=== PATIENT | female | born 1965 | race Caucasian/White ===

== ENCOUNTER 2019-05-12 12:17 | Emergency (ER) | payer SELFPAY ==
[2019-05-12 12:19] VITALS: BP 123/79; PULSE 78; RESP 17; TEMP 36.4; O2SAT 98; BMI 32.6
--- NOTE | 2019-05-12 12:31 | XRR_ITS ---
PROCEDURE INFORMATION: Exam: XR Lumbosacral Spine, 2 or 3 Views Exam date and time: 05/12/2019 1:25 PM Age: 54 years old Clinical indication: Injury or trauma; Fall; Initial encounter; Blunt trauma (contusions or hematomas) TECHNIQUE: Imaging protocol: XR of the lumbosacral spine, 2 or 3 views. COMPARISON: CR Lumbar Spine 2-3 views* [id number] 10/29/2015 8:45 PM FINDINGS: Vertebrae: Normal. No acute fracture. Normal alignment. Soft tissues: Normal. XR/XR lumbar spine 2-3V* [id number] IMPRESSION: Unremarkable radiograph.
--- NOTE | 2019-05-12 12:31 | XRR_ITS ---
PROCEDURE INFORMATION: Exam: XR Left Hand Exam date and time: 05/12/2019 1:29 PM Age: 54 years old Clinical indication: Injury or trauma; Fall; Initial encounter; Blunt trauma (contusions or hematomas; Hand; Left TECHNIQUE: Imaging protocol: XR Left hand. Views: 3 or more views. COMPARISON: No relevant prior studies available. FINDINGS: Bones/joints: Negative for acute bony abnormality Soft tissues: Normal. XR/XR hand LT min 3V* [id number] IMPRESSION: No acute findings.
--- NOTE | 2019-05-12 12:31 | XRR_ITS ---
PROCEDURE INFORMATION: Exam: XR Pelvis Exam date and time: 05/12/2019 1:26 PM Age: 54 years old Clinical indication: Injury or trauma; Fall; Initial encounter; Blunt trauma (contusions or hematomas); Right; Hip; Prior surgery; Surgery date: 6+ months; Surgery type: Tubal ligation TECHNIQUE: Imaging protocol: XR pelvis. Views: 1 or 2 view. COMPARISON: CR Hip 2-3v RIGHT wwo Pelv* [id number] 10/29/2015 8:45 PM FINDINGS: Bones/joints: Unremarkable. No acute fracture. Soft tissues: Unremarkable. XR/XR pelvis 1-2V* [id number] IMPRESSION: No acute findings.
--- NOTE | 2019-05-12 12:31 | W.ED.FALL ---
HPI - Fall General: Chief Complaint: Fall Stated Complaint: fall, back pain, thumb pain Time Seen by Provider: 05/12/19 12:28 Source: patient Mode of arrival: ambulatory Limitations: no limitations History of Present Illness: HPI Narrative: 54-year-old female comes in today for complaints of low back pain and left thumb pain from a injury that occurred during a fall on Monday. Patient states she slipped and fell down 4 steps at home. Patient says since then she has been unable to use the thumb as she had such as buttoning her pants. Patient also has some low back pain. Patient appears well. Patient appears in mild to no pain at rest. Review of Systems General: Reports: 10 or more systems reviewed and unremarkable except in HPI and below Musc: Reports: back pain, joint pain and other (left dip joint pain thumb, lumbar pain) PFSH ED PFSH: Statuses (acute, chronic, etc) shown below reflect problem list status as previously entered and may not be historically accurate Social History Smoking and tobacco status: former smoker Physical Exam Const: COMMON NORMALS: no apparent distress and oriented x3 GENERAL APPEARANCE: cooperative HENMT: COMMON NORMALS: normocephalic, external ears normal, EAC's normal, TM's normal bilaterally and external nose normal HEAD & SCALP: normal to inspection and normocephalic FACE & SINUS: normal facial exam NOSE: external nose normal GENERAL EAR: hearing not grossly impaired EXTERNAL EAR: Yes external ears normal EXTERNAL AUDITORY CANAL: EAC's normal TYMPANIC MEMBRANE: TM's normal bilaterally MOUTH: oral and palatal mucosa normal THROAT: posterior oropharynx normal Eye: COMMON NORMALS: PERRL and EOMs intact bilaterally PUPIL: Yes PERRL Neck/C-Spine: COMMON NORMALS: full ROM and no lymphadenopathy Lymph: LYMPHATIC: no lymphedema noted Chest: COMMONS NORMALS: inspection of chest normal and palpation of chest normal Resp: COMMON NORMALS: normal respiratory effort and clear to auscultation bilaterally AUSCULTATION: clear to auscultation bilaterally Cardio: COMMON NORMALS: regular rate and regular rhythm RATE: regular rate RHYTHM: regular rhythm GI: COMMON NORMALS: normal to inspection, nondistended, normoactive bowel sounds and non-tender Back/Pelvis: COMMON NORMALS: straight leg raise negative bilaterally; negative for thoracic and lumbar spine normal to inspection (vertebral tenderness low lumbar spine, ) Extremity: COMMON NORMALS: full ROM (tenderness to left thumb with ROM, no crepitus or deformity) GENERAL: No edema Neuro: COMMON NORMALS: oriented x3, moves all extremities and no focal motor deficits Psych: COMMON NORMALS: mental status grossly normal and cooperative Skin: COMMON NORMALS: no rashes or lesions noted GENERAL SKIN EXAM: no rashes or lesions noted Course Vital Signs: Vital signs: Vital Signs Temperature 97.5 F L 05/12/19 12:19 Pulse Rate 78 05/12/19 12:19 Respiratory Rate 17 05/12/19 12:19 Blood Pressure 123/79 05/12/19 12:19 Pulse Oximetry 98 05/12/19 12:19 MDM - Fall MDM Narrative: Medical decision making narrative: Patient comes in for injury to the left thumb and low back that occurred Monday. Patient reported slipping on the steps. Exam notes tenderness to the distal joint of the left thumb. Respirations are even lungs are clear to auscultation. Skin is warm and dry and color is pink. Differential diagnosis includes fracture, sprain, intervertebral disc disease, facet arthropathy, vertebral compression fracture. X-ray of the back and pelvis noted no fractures. X-ray of the distal phalanx appears to be an avulsion fracture at the joint of the thumb. Remainder of the hand x-ray looked normal. Reviewed exam with patient recommended treatment splint the finger for 2 weeks then increase activity as tolerated. Recommend follow-up with primary care in 1 week for repeat exam or earlier as needed. Imaging Data^: Xray Ortho: My impression: Lumbar spine and pelvis, no osseous finding, Left hand probably a small avulsion of distal phalanx of thumb Discharge Plan Discharge Patient Disposition: Home, Self-Care Clinical Impression: Fall (on) (from) other stairs and steps, initial encounter Fracture of phalanx of finger of left hand Qualifiers: Encounter type: initial encounter Finger: thumb Fracture type: closed Phalanx: distal Fracture alignment: nondisplaced Qualified Code(s): S62.525A - Nondisplaced fracture of distal phalanx of left thumb, initial encounter for closed fracture Condition: Stable Prescriptions: New diclofenac sodium 75 mg tablet,delayed release (DR/EC) 75 mg PO BID Qty: 14 RF: 0 tizanidine 4 mg tablet 4 mg PO Q8H PRN (Reason: muscle spasm/pain) Qty: 14 RF: 0 Discharge Orders: Discharge Order (Routine); Ordered 05/12/19 Ordered By: Chandler Carrasco Discharge Diet: Usual diet Discharge Activity: Increase activity as tolerated Activity Restrictions/Additional Instructions: Gentle stretching and range of motion exercise Acetaminophen as needed for further pain control Wear splint for two weeks to the thumb, then activity as tolerated Follow-up with primary care in one week Return to ER as needed Stand Alone Forms: Work/Release Restrictions Coding Level of Care Code ED Production Support Specialist for [facility] Fwd Exam Problem Focused
--- NOTE | 2019-05-12 13:09 | PC.NURSE ---
Patient to CT
[2019-05-12 13:48] VITALS: BP 115/78; PULSE 75; RESP 14; O2SAT 97
== END 2019-05-12 13:48 | disposition home or self-care (01) ==
PROVIDERS: Emergency Provider Nurse Practitioner Family
DX: S62.525A Nondisplaced fracture of distal phalanx of left thumb, initial encounter for closed fracture (principal); W10.8XXA Fall (on) (from) other stairs and steps, initial encounter; Z87.891 Personal history of nicotine dependence
CPT/HCPCS: 72100; 72170; 73130; 99281

== ENCOUNTER 2019-06-04 02:00 | Emergency (ER) | payer SELFPAY ==
[2019-06-04 02:08] VITALS: BP 134/108; PULSE 70; RESP 24; TEMP 36.6; O2SAT 97; BMI 32.6
--- NOTE | 2019-06-04 02:09 | ED_ITS ---
Entered by Jen Weaver, acting as scribe for Jhonatan Kinney MD HPI - Abdominal Pain General: Chief Complaint: Abdominal Pain Stated Complaint: Upper Abd Pain/Back Pain Time Seen by Provider: 06/04/19 02:08 Source: patient Mode of arrival: ambulatory Limitations: no limitations History of Present Illness: HPI narrative: 54 yo f came to the er pov for abd pain. Onset was tonight. Pt states that she is having some abd pain that is epigastric and radiates to her back. Patient states the pain is sharp in nature. She denies any worsening or improving factors. She has had one episode of vomiting. MD elicited complaint: abdominal pain Pertinent past history: none Onset (ago): hour(s) (1 hour ago) Pain Consistency: constant Location: Epigastric Severity: mild Quality: sharp Radiation: epigastric and back Exacerbating factors: nothing Relieving factors: nothing Associated Symptoms: Reports nausea and vomiting; Denies diarrhea, dysuria and fever(s) Review of Systems General: Reports: other (negative unless marked) Const: Denies: fever Eyes: Denies: blurry vision or eye discomfort ENMT: Denies: throat pain or dental pain Card: Denies: chest pain Resp: Denies: shortness of breath GI: Reports: abdominal pain, nausea and vomiting; Denies: diarrhea : Denies: painful urination Musc: Denies: neck pain or back pain Skin/Breast: Denies: rash Neuro: Denies: headache Psych: Denies: depression Quan/Lymph: Denies: easy bruising All/Imm: Denies: hives PFSH ED PFSH: Statuses (acute, chronic, etc) shown below reflect problem list status as previously entered and may not be historically accurate Social History Smoking and tobacco status: former smoker Physical Exam Const: COMMON NORMALS: no apparent distress, oriented x3 and healthy appearing HENMT: COMMON NORMALS: normocephalic and head/scalp atraumatic HEAD & SCALP: normocephalic and atraumatic Eye: COMMON NORMALS: PERRL and EOMs intact bilaterally PUPIL: Yes PERRL Neck/C-Spine: COMMON NORMALS: full ROM and supple Chest: COMMONS NORMALS: inspection of chest normal and palpation of chest normal Resp: COMMON NORMALS: normal respiratory effort, no retractions, no use of accessory muscles and clear to auscultation bilaterally AUSCULTATION: clear to auscultation bilaterally Cardio: COMMON NORMALS: regular rate, regular rhythm and no murmurs RATE: regular rate RHYTHM: regular rhythm GI: COMMON NORMALS: normal to inspection, nondistended, normoactive bowel sounds, soft to palpation, non-tender and no masses PALPATION: Yes soft Extremity: COMMON NORMALS: normal to inspection and full ROM Neuro: COMMON NORMALS: oriented x3, moves all extremities and no focal motor deficits Psych: COMMON NORMALS: mental status grossly normal, thought process normal and cooperative THOUGHT PROCESS: normal thought process Skin: COMMON NORMALS: no rashes or lesions noted and no wounds GENERAL SKIN EXAM: no rashes or lesions noted Course Vital Signs: Vital signs: Vital Signs Temperature 97.9 F 06/04/19 02:08 Pulse Rate 70 06/04/19 02:08 Respiratory Rate 18 06/04/19 02:39 Blood Pressure 134/108 06/04/19 02:08 Pulse Oximetry 97 06/04/19 02:08 MDM - Abdominal Pain MDM Narrative: Medical decision making narrative: Patient presents here with abdominal pain. Patient CT scan here is negative lab work is normal as well. Patient feels improved after pain meds and nausea meds. She has had no vomiting here. Patient is stable for discharge and will prescribe Zofran for home. She is to follow-up with her primary care doctor in 3 to 5 days return if worsening. Lab Data: Labs: Lab Results 06/04/19 06/04/19 06/04/19 Range/Units 02:20 02:20 04:30 WBC 8.2 (4.0-10.0) 10^3/ uL RBC 4.64 (4.1-5.3) 10^6/u L Hgb 13.5 (11.5-15.3) g/dL Hct 41.6 (37.0-47.0) % MCV 89.7 (81-99) fL MCH 29.1 (28.0-34.0) pg MCHC 32.5 (30.0-36.0) g/dL RDW 13.2 (12.1-15.1) % Plt Count 343 (130-400) 10^3/c mm MPV 10.2 (7.4-10.4) fL Neut % (Auto) 47.1 % Lymph % (Auto) 41.3 % Metcalfe % (Auto) 7.0 % Eos % (Auto) 3.6 % Baso % (Auto) 0.8 % Neut # (Auto) 3.9 (1.8-7.7) 10^3/u L Lymph # (Auto) 3.4 (0.8-4.8) 10^3/u L Metcalfe # (Auto) 0.6 (0.2-0.9) 10^3/u L Eos # (Auto) 0.3 (0.0-0.8) 10^3/u L Baso # (Auto) 0.1 (0.0-0.1) 10^3/u L Nucleated RBC % (a uto) 0 % Nucleated RBCs # 0.0 /100WBC Sodium 142 (136-145) mmol/L Potassium 3.5 (3.5-5.1) mmol/L Chloride 100 (98-107) mmol/L Carbon Dioxide 26 (22-29) mmol/L Anion Gap 19.5 H (5-19) BUN 11 (6-20) mg/dL Creatinine 0.7 (0.5-0.9) mg/dL GFR Calculation 87.5 L (90-130) mL/min Glucose 147 H (65-115) mg/dL Calcium 9.7 (8.5-10.5) mg/dL Total Bilirubin 0.3 (0.15-1.2) mg/dL AST 50 H (0-32) U/L ALT 47 H (0-33) U/L Alkaline Phosphata se 96 (35-105) IU/L Total Protein 7.7 (6.6-8.7) g/dL Albumin 4.3 (3.5-5.2) g/dL Globulin 3.4 (1.3-4.6) g/dL Lipase 16 (13-60) U/L Urine Color Yellow (Yellow) Urine Appearance Clear (CLEAR) Urine pH 7 (5-7) Ur Specific Gravit y 1.010 (1.005-1.030) Urine Protein Neg (Negative) Urine Glucose (UA) Norm (Normal) Urine Ketones Negative (Negative) Urine Occult Blood Neg (Negative) Urine Nitrate Negative (Negative) Urine Bilirubin Neg (NEGATIVE) Urine Urobilinogen Norm (Negative) mg/dL Ur Leukocyte Niurka ase Negative (Negative) Imaging Data ^: CT Abd/Pel: Attestation: I personally reviewed and interpreted this imaging study as follows: Radiologist's impression: Ordering Provider/Ordering MD: Jhonatan Kinney MD Date of Service: 06/04/19 Procedure(s): CT abdomen pelvis w con* [id number] Accession Number(s): [id number] Report Number: [id number] PROCEDURE INFORMATION: Exam: CT Abdomen And Pelvis With Contrast Exam date and time: 06/04/2019 2:21 AM Age: 54 years old Clinical indication: Abdominal pain; Generalized; Prior surgery; Surgery date: 6+ months; Surgery type: Appy; Additional info: Abd pain TECHNIQUE: Imaging protocol: Computed tomography of the abdomen and pelvis with intravenous contrast. Total DLP: 1598.39 mGy-cm Radiation optimization: All CT scans at this facility use at least one of these dose optimization techniques: automated exposure control; mA and/or kV adjustment per patient size (includes targeted exams where dose is matched to clinical indication); or iterative reconstruction. Contrast material: OMNI 300; Contrast volume: 95 ml; Contrast route: IV; COMPARISON: CT abdomen pelvis w con* [id number] 09/23/2018 2:12 PM FINDINGS: Liver: Normal. No mass. Gallbladder and bile ducts: Normal. No calcified stones. No ductal dilation. Pancreas: Normal. No ductal dilation. Spleen: Punctate calcifications are seen within the spleen compatible with calcified granulomas. Adrenals: Normal. No mass. Kidneys and ureters: Normal. No hydronephrosis. Stomach and bowel: Diverticula are present on the transverse, descending and sigmoid colon. There are no inflammatory changes seen to suggest diverticulitis. Appendix: Status post appendectomy. Intraperitoneal space: Unremarkable. No free air. No significant fluid collection. Vasculature: Unremarkable. No abdominal aortic aneurysm. Lymph nodes: Unremarkable. No enlarged lymph nodes. Bladder: Unremarkable as visualized. Reproductive: Unremarkable as visualized. Bones/joints: Unremarkable. No acute fracture. Soft tissues: Unremarkable. CT/CT abdomen pelvis w con* [id number] IMPRESSION: 1. There are no acute abdominal or pelvic findings. 2. Diverticulosis of the transverse, descending and sigmoid colon without evidence of diverticulitis. Discharge Plan Discharge Patient Disposition: Home, Self-Care Clinical Impression: Abdominal pain Qualifiers: Abdominal location: generalized Qualified Code(s): R10.84 - Generalized abdominal pain Condition: Stable Prescriptions: New Zofran 4 mg tablet 4 mg PO QID PRN (Reason: nausea and vomiting) Qty: 14 RF: 0 No Action diclofenac sodium 75 mg tablet,delayed release (DR/EC) 75 mg PO BID Qty: 14 RF: 0 tizanidine 4 mg tablet 4 mg PO Q8H PRN (Reason: muscle spasm/pain) Qty: 14 RF: 0 Discharge Orders: Discharge Order (Routine); Ordered 06/04/19 Ordered By: Jhonatan Kinney Discharge Diet: Advance as tolerated Discharge Activity: Resume usual activity Patient Instructions: Abdominal Pain (ED) Coding Level of Care Code ED Lead Etl Developer for [facility] Fwd Exam Problem Focused The documentation recorded by the Owen aguila Stephanie Lyn, accurately reflects the service I personally performed and the decisions made by Nirmal keyes Korby, MD Jun 04, 2019 02:00
--- NOTE | 2019-06-04 02:18 | CTR_ITS ---
PROCEDURE INFORMATION: Exam: CT Abdomen And Pelvis With Contrast Exam date and time: 06/04/2019 2:21 AM Age: 54 years old Clinical indication: Abdominal pain; Generalized; Prior surgery; Surgery date: 6+ months; Surgery type: Appy; Additional info: Abd pain TECHNIQUE: Imaging protocol: Computed tomography of the abdomen and pelvis with intravenous contrast. Total DLP: 1598.39 mGy-cm Radiation optimization: All CT scans at this facility use at least one of these dose optimization techniques: automated exposure control; mA and/or kV adjustment per patient size (includes targeted exams where dose is matched to clinical indication); or iterative reconstruction. Contrast material: OMNI 300; Contrast volume: 95 ml; Contrast route: IV; COMPARISON: CT abdomen pelvis w con* [id number] 09/23/2018 2:12 PM FINDINGS: Liver: Normal. No mass. Gallbladder and bile ducts: Normal. No calcified stones. No ductal dilation. Pancreas: Normal. No ductal dilation. Spleen: Punctate calcifications are seen within the spleen compatible with calcified granulomas. Adrenals: Normal. No mass. Kidneys and ureters: Normal. No hydronephrosis. Stomach and bowel: Diverticula are present on the transverse, descending and sigmoid colon. There are no inflammatory changes seen to suggest diverticulitis. Appendix: Status post appendectomy. Intraperitoneal space: Unremarkable. No free air. No significant fluid collection. Vasculature: Unremarkable. No abdominal aortic aneurysm. Lymph nodes: Unremarkable. No enlarged lymph nodes. Bladder: Unremarkable as visualized. Reproductive: Unremarkable as visualized. Bones/joints: Unremarkable. No acute fracture. Soft tissues: Unremarkable. CT/CT abdomen pelvis w con* [id number] IMPRESSION: 1. There are no acute abdominal or pelvic findings. 2. Diverticulosis of the transverse, descending and sigmoid colon without evidence of diverticulitis. Radiation Dose CTDIVOL = (mGy): DLP = 1598.39 (mGy-cm)
[2019-06-04 02:26] LABS: Basophils # 0.1 10^3/uL (0.0-0.1); Basophils % 0.8 %; Eosinophils # 0.3 10^3/uL (0.0-0.8); Eosinophils % 3.6 %; Hematocrit 41.6 % (37.0-47.0); Hemoglobin 13.5 g/dL (11.5-15.3); Lymphocytes # 3.4 10^3/uL (0.8-4.8); Lymphocytes % 41.3 %; Mean Corpuscular HGB Conc 32.5 g/dL (30.0-36.0); Mean Corpuscular Hemoglobin 29.1 pg (28.0-34.0); Mean Corpuscular Volume 89.7 fL (81-99); Mean Platelet Volume 10.2 fL (7.4-10.4); Monocytes # 0.6 10^3/uL (0.2-0.9); Neutrophils # 3.9 10^3/uL (1.8-7.7); Neutrophils % 47.1 %; Nucleated Red Blood Cells % 0 %; Platelet Count 343 10^3/cmm (130-400); Red Blood Count 4.64 10^6/uL (4.1-5.3); Red Cell Distribution Width 13.2 % (12.1-15.1); White Blood Count 8.2 10^3/uL (4.0-10.0)
[2019-06-04 02:39] VITALS: RESP 18
[2019-06-04] MEDS: morphine 4 mg/mL SDV 1 mL IVP (02:39)
[2019-06-04] MEDS: ondansetron 2 mg/ML SDV 2 mL 4 MG IVP (02:39)
[2019-06-04] MEDS: sodium chloride 0.9% 1,000 ML 999 ML IV ×2 (02:41→04:03)
[2019-06-04 02:43] LABS: Alanine Aminotransferase 47 U/L (0-33); Albumin Level 4.3 g/dL (3.5-5.2); Alkaline Phosphatase 96 IU/L (35-105); Anion Gap 19.5 (5-19); Aspartate Amino Transferase 50 U/L (0-32); Blood Urea Nitrogen 11 mg/dL (6-20); Calcium 9.7 mg/dL (8.5-10.5); Carbon Dioxide 26 mmol/L (22-29); Chloride 100 mmol/L (98-107); Globulin 3.4 g/dL (1.3-4.6); Glomerular Filtration Rate 87.5 mL/min (90-130); Glucose 147 mg/dL (65-115); Lipase 16 U/L (13-60); Potassium 3.5 mmol/L (3.5-5.1); Sodium 142 mmol/L (136-145); Total Bilirubin 0.3 mg/dL (0.15-1.2); Total Protein 7.7 g/dL (6.6-8.7)
[2019-06-04] MEDS: iohexol 300 mg/mL 100 mL Btl IV (03:03)
[2019-06-04] MEDS: metoclopramide 5 mg/mL SDV 2 mL 10 MG IVP (04:55)
[2019-06-04] MEDS: diphenhydrAMINE 50 mg/mL SDV 1mL IVP (04:55)
[2019-06-04 05:06] LABS: Add Urine Microscopic? NO
[2019-06-04 05:12] LABS: Bilirubin Urine Neg (NEGATIVE); Blood Urine Neg (Negative); Glucose Urine UA Norm (Normal); Ketones Urine Negative (Negative); Leukocyte Esterase Urine Negative (Negative); Nitrate Urine Negative (Negative); Protein Urine Neg (Negative); Urine Appearance Clear (CLEAR); Urine Color Yellow (Yellow); Urobilinogen Urine Norm (Negative); pH Urine 7 (5-7)
--- NOTE | 2019-06-04 05:54 | PC.NURSE ---
Patient dc'd home in stable condition via ambulation refusing wheelchair. Discahrge papers given and explained to patient with all questions asked and answered.
== END 2019-06-04 05:52 | disposition home or self-care (01) ==
PROVIDERS: Emergency Provider Emergency Medicine
DX: R10.84 Generalized abdominal pain (principal); Z87.891 Personal history of nicotine dependence
CPT/HCPCS: 36415; 74177; 80053; 81003; 83690; 85025; 96361; 96374; 96375; 99283; A9270; J1200; J2270; J2405; J2765; J7030; Q9967

== ENCOUNTER 2019-06-06 12:05 | Inpatient (IN) | payer SELFPAY ==
[2019-06-06] VITALS (7 sets, daily range): BP systolic 108–154; BP diastolic 60–98; PULSE 53–76; RESP 17–20; TEMP 36.6–36.7; O2SAT 96–99; BMI 32.6
--- NOTE | 2019-06-06 12:09 | W.ED.ABDPA2 ---
Documented by User: KATHARINA Altman 06/06/19 16:03 HPI - Abdominal Pain General: Chief Complaint: Abdominal Pain Stated Complaint: abd pain/vomiting Time Seen by Provider: 06/06/19 12:09 Source: patient Mode of arrival: ambulatory Limitations: no limitations History of Present Illness: HPI narrative: Patient is a 54-year-old female who presents to ED today with complaints of upper abdominal pain over the past 3 days. Patient states pain seemed to have come on fairly suddenly 3 days ago. She was seen at our facility at that time and had normal labs and CT performed. Patient states she contacted her PCP office today as she was still having quite a bit of discomfort and they recommended returning to the emergency department for reevaluation. Patient states her pain seems to be worse with bumps in the road/movement and eating. She states she has not been able to hold down much over the past 3 days. She reports vomiting approximately 3-4 times daily since onset (nonbloody). Patient does tell me that she has had stomach problems chronically associated with acid reflux and nausea however she states her pain today feels different. She reports some mild constipation. No fevers but does report chills and hot flashes. Denies urinary symptoms. Previous abdominal surgeries include a tubal ligation. MD elicited complaint: abdominal pain Onset (ago): day(s) Pain Consistency: constant Location: Epigastric, LUQ and RUQ Severity: moderate Radiation: back Exacerbating factors: eating and movement Associated Symptoms: Reports chills, constipation, nausea and vomiting; Denies belching, coffee ground emesis, diarrhea, dysuria, excessive flatus, fever(s), hematochezia, hematemesis, fecal incontinence, melena and syncope Review of Systems Const: Reports: chills and change in appetite; Denies: fever, body aches or change in weight Eyes: Denies: change in vision or blurry vision ENMT: Denies: throat pain, enlarged tonsils or painful swallowing Card: Denies: chest pain, palpitations, irregular heart rhythm, edema, swelling of feet/ankles, lightheadedness, syncope, pre-syncope, shortness of breath on exertion, shortness of breath when lying down, leg pain with exertion or bluish discoloration of hands/feet Resp: Reports: pain on inspiration; Denies: shortness of breath, productive cough, coughing up blood or chest congestion GI: Reports: abdominal pain, nausea, vomiting and constipation; Denies: vomiting blood, coffee grounds in vomit, diarrhea, belching, excessive passing of gas, fecal incontinence, painful bowel movements, blood in stool, black tarry stool, mucus in stool, white/light colored stool or fatty stool : Denies: flank pain, difficulty urinating, painful urination, urinary frequency or urinary urgency Musc: Denies: neck pain, extremity pain or joint pain Skin/Breast: Denies: rash Neuro: Denies: headache PFSH ED PFSH: Social History Smoking and tobacco status: former smoker Physical Exam Const: COMMON NORMALS: no apparent distress, oriented x3, no limitations, alert and well nourished Neck/C-Spine: COMMON NORMALS: full ROM, no lymphadenopathy, supple, no meningeal signs and no carotid bruits Chest: COMMONS NORMALS: inspection of chest normal and palpation of chest normal Resp: COMMON NORMALS: normal respiratory effort and clear to auscultation bilaterally AUSCULTATION: clear to auscultation bilaterally Cardio: COMMON NORMALS: regular rate and regular rhythm RATE: regular rate RHYTHM: regular rhythm GI: COMMON NORMALS: soft to palpation, no hepatosplenomegaly and no masses AUSCULTATION: Yes normoactive bowel sounds PALPATION: Yes soft, Yes tender (epigastrium) Details: RUQ and Yes no hepatosplenomegaly : COMMON NORMALS: Yes no CVA tenderness BLADDER/KIDNEY EXAM: Yes no CVA tenderness Back/Pelvis: COMMON NORMALS: no CVA tenderness Neuro: COMMON NORMALS: oriented x3 SENSORIUM/ORIENTATION: Yes alert MENINGEAL SIGNS: Yes no meningeal signs Skin: COMMON NORMALS: no rashes or lesions noted GENERAL SKIN EXAM: no rashes or lesions noted Course Vital Signs: Vital signs: Vital Signs Pulse Rate 63 06/06/19 12:10 Respiratory Rate 18 06/06/19 13:34 Blood Pressure 154/98 06/06/19 12:10 Pulse Oximetry 99 06/06/19 13:34 MDM - Abdominal Pain MDM Narrative: Medical decision making narrative: Dr. Dorado will also evaluate patient and speak to general surgeon and hospitalist for admission. Lab Data: Labs: Lab Results 06/06/19 06/06/19 06/06/19 Range/Units 12:20 12:20 12:20 WBC 6.0 (4.0-10.0) 10^3/ uL RBC 4.64 (4.1-5.3) 10^6/u L Hgb 13.4 (11.5-15.3) g/dL Hct 42.0 (37.0-47.0) % MCV 90.5 (81-99) fL MCH 28.9 (28.0-34.0) pg MCHC 31.9 (30.0-36.0) g/dL RDW 13.2 (12.1-15.1) % Plt Count 287 (130-400) 10^3/c mm MPV 10.5 H (7.4-10.4) fL Neut % (Auto) 61.3 % Lymph % (Auto) 27.6 % [place] % (Auto) 7.8 % Eos % (Auto) 2.5 % Baso % (Auto) 0.5 % Neut # (Auto) 3.7 (1.8-7.7) 10^3/u L Lymph # (Auto) 1.7 (0.8-4.8) 10^3/u L [place] # (Auto) 0.5 (0.2-0.9) 10^3/u L Eos # (Auto) 0.2 (0.0-0.8) 10^3/u L Baso # (Auto) 0.0 (0.0-0.1) 10^3/u L Nucleated RBC % (a uto) 0 % Nucleated RBCs # 0.0 /100WBC Sodium 138 (136-145) mmol/L Potassium 4.2 (3.5-5.1) mmol/L Chloride 101 (98-107) mmol/L Carbon Dioxide 25 (22-29) mmol/L Anion Gap 16.2 (5-19) BUN 10 (6-20) mg/dL Creatinine 0.8 (0.5-0.9) mg/dL GFR Calculation 75.0 L (90-130) mL/min Glucose 114 (65-115) mg/dL Calcium 10.1 (8.5-10.5) mg/dL Total Bilirubin 0.7 (0.15-1.2) mg/dL AST 559 H (0-32) U/L ALT 658 H (0-33) U/L Alkaline Phosphata se 166 H (35-105) IU/L Troponin T Gen 5 n g/L Total Protein 7.6 (6.6-8.7) g/dL Albumin 4.7 (3.5-5.2) g/dL Globulin 2.9 (1.3-4.6) g/dL Lipase 107 H (13-60) U/L HCG, Qual Negative (Negative) Urine Color (Yellow) Urine Appearance (CLEAR) Urine pH (5-7) Ur Specific Gravit y (1.005-1.030) Urine Protein (Negative) Urine Glucose (UA) (Normal) Urine Ketones (Negative) Urine Occult Blood (Negative) Urine Nitrate (Negative) Urine Bilirubin (NEGATIVE) Urine Urobilinogen (Negative) mg/dL Ur Leukocyte Niurka ase (Negative) Hepatitis A IgM Ab (Nonreactive) Hep Bs Antigen (Nonreactive) Hep B Core IgM Ab (Nonreactive) Hepatitis C Antibo dy (Nonreactive) 06/06/19 06/06/19 06/06/19 Range/Units 12:20 12:20 14:12 WBC (4.0-10.0) 10^3/ uL RBC (4.1-5.3) 10^6/u L Hgb (11.5-15.3) g/dL Hct (37.0-47.0) % MCV (81-99) fL MCH (28.0-34.0) pg MCHC (30.0-36.0) g/dL RDW (12.1-15.1) % Plt Count (130-400) 10^3/c mm MPV (7.4-10.4) fL Neut % (Auto) % Lymph % (Auto) % [place] % (Auto) % Eos % (Auto) % Baso % (Auto) % Neut # (Auto) (1.8-7.7) 10^3/u L Lymph # (Auto) (0.8-4.8) 10^3/u L [place] # (Auto) (0.2-0.9) 10^3/u L Eos # (Auto) (0.0-0.8) 10^3/u L Baso # (Auto) (0.0-0.1) 10^3/u L Nucleated RBC % (a uto) % Nucleated RBCs # /100WBC Sodium (136-145) mmol/L Potassium (3.5-5.1) mmol/L Chloride (98-107) mmol/L Carbon Dioxide (22-29) mmol/L Anion Gap (5-19) BUN (6-20) mg/dL Creatinine (0.5-0.9) mg/dL GFR Calculation (90-130) mL/min Glucose (65-115) mg/dL Calcium (8.5-10.5) mg/dL Total Bilirubin (0.15-1.2) mg/dL AST (0-32) U/L ALT (0-33) U/L Alkaline Phosphata se (35-105) IU/L Troponin T Gen 5 n g/L 6.00 Total Protein (6.6-8.7) g/dL Albumin (3.5-5.2) g/dL Globulin (1.3-4.6) g/dL Lipase (13-60) U/L HCG, Qual (Negative) Urine Color Yellow (Yellow) Urine Appearance Clear (CLEAR) Urine pH 7 (5-7) Ur Specific Gravit y 1.005 (1.005-1.030) Urine Protein Neg (Negative) Urine Glucose (UA) Norm (Normal) Urine Ketones Negative (Negative) Urine Occult Blood Neg (Negative) Urine Nitrate Negative (Negative) Urine Bilirubin Neg (NEGATIVE) Urine Urobilinogen Norm (Negative) mg/dL Ur Leukocyte Niurka ase Negative (Negative) Hepatitis A IgM Ab Non-reactive (Nonreactive) Hep Bs Antigen Non-reactive (Nonreactive) Hep B Core IgM Ab Non-reactive (Nonreactive) Hepatitis C Antibo dy Non-reactive (Nonreactive) Imaging Data ^: US gallbladder: Radiologist's impression: [address] [address] Ultrasound Report Signed Patient: Felicia Weaver Unit #: [id number] : 1965 Age/Sex: 54 / F ADM Date: 06/06/19 Loc: ER Room/Bed: Attending Dr: Ordering Provider/Ordering MD: Elinor Foreman Date of Service: 06/06/19 Procedure(s): US gall bladder 62573 Accession Number(s): [id number] Report Number: [id number] WS: [id number] RIGHT UPPER QUADRANT ULTRASOUND HISTORY: RUQ/epigastric pain COMPARISON: None available. Liver: 16.2 cm in length. Normal size and echogenicity with no intrahepatic dilatation. No mass. Gallbladder: Well distended gallbladder, top normal transverse diameter. Multiple small stones layering in the gallbladder with shadowing. No wall thickening or pericholecystic fluid. CBD: 5.8 cm Pancreas: Not visualized. Right kidney: 10.7 cm in length. Normal echogenicity with no mass or hydronephrosis. Aorta and IVC: Unremarkable. No ascites. US/US gall bladder [id number] IMPRESSION: 1. Cholelithiasis without evidence for acute cholecystitis. 2. No bile duct dilatation. Dictated By: Marissa Matias DO Signed By: Marissa Matias DO Signed Date/Time: 06/06/19 1322 DD/ 1320 CXR: Radiologist's impression: [address] [address] XRay Report Signed Patient: Felicia Weaver Unit #: [id number] : 1965 Age/Sex: 54 / F ADM Date: 06/06/19 Loc: ER Room/Bed: Attending Dr: Ordering Provider/Ordering MD: Elinor Foreman Date of Service: 06/06/19 Procedure(s): XR chest 1V portable [id number] Accession Number(s): [id number] Report Number: [id number] WS: [id number] PORTABLE CHEST HISTORY: cough/congestion COMPARISON: 05/11/2017 Hyperinflated lungs with haziness over both lungs and calcified granulomata. No pneumonia. No pleural effusion or pneumothorax. Cardiac size: Mildly enlarged cardiac silhouette. Mediastinum/Aorta: Mild atherosclerosis aorta. No osseous abnormality seen. XR/XR chest 1V portable [id number] IMPRESSION: 1. Chronic emphysema and prior granulomatous disease. 2. Mild cardiomegaly. 3. No pneumonia. Dictated By: Marissa Matias DO Signed By: Marissa Matias DO Signed Date/Time: 06/06/19 1324 DD/ 1322 Discharge Plan Discharge Patient Disposition: Admitted As Inpatient Clinical Impression: Elevated LFTs, Partial small bowel obstruction Condition: Stable Referrals: Lucille Black MD [Primary Care Provider] - Coding Level of Care Code ED Waist Pleater for Chg Fwd Exam Problem Focused Documented by User: Shin Dorado DO 06/06/19 16:14 HPI - Abdominal Pain General: Chief Complaint: Abdominal Pain Stated Complaint: abd pain/vomiting Time Seen by Provider: 06/06/19 12:09 PFSH ED PFSH: Social History Smoking and tobacco status: former smoker Course ED course: Case reviewed with physicians under water assistant Elinor Foreman. Discussed with Dr. Mccoy and with Dr. Nascimento. Will admit patient for colitis and monitor closely doctors to consult as needed start Flagyl and Cipro. Exam repeated no change from above documented exam. Vital Signs: Vital signs: Vital Signs Pulse Rate 63 06/06/19 12:10 Respiratory Rate 18 06/06/19 13:34 Blood Pressure 154/98 06/06/19 12:10 Pulse Oximetry 99 06/06/19 13:34 MDM - Abdominal Pain Lab Data: Labs: Lab Results 06/06/19 06/06/19 06/06/19 Range/Units 12:20 12:20 12:20 WBC 6.0 (4.0-10.0) 10^3/ uL RBC 4.64 (4.1-5.3) 10^6/u L Hgb 13.4 (11.5-15.3) g/dL Hct 42.0 (37.0-47.0) % MCV 90.5 (81-99) fL MCH 28.9 (28.0-34.0) pg MCHC 31.9 (30.0-36.0) g/dL RDW 13.2 (12.1-15.1) % Plt Count 287 (130-400) 10^3/c mm MPV 10.5 H (7.4-10.4) fL Neut % (Auto) 61.3 % Lymph % (Auto) 27.6 % [place] % (Auto) 7.8 % Eos % (Auto) 2.5 % Baso % (Auto) 0.5 % Neut # (Auto) 3.7 (1.8-7.7) 10^3/u L Lymph # (Auto) 1.7 (0.8-4.8) 10^3/u L [place] # (Auto) 0.5 (0.2-0.9) 10^3/u L Eos # (Auto) 0.2 (0.0-0.8) 10^3/u L Baso # (Auto) 0.0 (0.0-0.1) 10^3/u L Nucleated RBC % (a uto) 0 % Nucleated RBCs # 0.0 /100WBC Sodium 138 (136-145) mmol/L Potassium 4.2 (3.5-5.1) mmol/L Chloride 101 (98-107) mmol/L Carbon Dioxide 25 (22-29) mmol/L Anion Gap 16.2 (5-19) BUN 10 (6-20) mg/dL Creatinine 0.8 (0.5-0.9) mg/dL GFR Calculation 75.0 L (90-130) mL/min Glucose 114 (65-115) mg/dL Calcium 10.1 (8.5-10.5) mg/dL Total Bilirubin 0.7 (0.15-1.2) mg/dL AST 559 H (0-32) U/L ALT 658 H (0-33) U/L Alkaline Phosphata se 166 H (35-105) IU/L Troponin T Gen 5 n g/L Total Protein 7.6 (6.6-8.7) g/dL Albumin 4.7 (3.5-5.2) g/dL Globulin 2.9 (1.3-4.6) g/dL Lipase 107 H (13-60) U/L HCG, Qual Negative (Negative) Urine Color (Yellow) Urine Appearance (CLEAR) Urine pH (5-7) Ur Specific Gravit y (1.005-1.030) Urine Protein (Negative) Urine Glucose (UA) (Normal) Urine Ketones (Negative) Urine Occult Blood (Negative) Urine Nitrate (Negative) Urine Bilirubin (NEGATIVE) Urine Urobilinogen (Negative) mg/dL Ur Leukocyte Niurka ase (Negative) Hepatitis A IgM Ab (Nonreactive) Hep Bs Antigen (Nonreactive) Hep B Core IgM Ab (Nonreactive) Hepatitis C Antibo dy (Nonreactive) 06/06/19 06/06/19 06/06/19 Range/Units 12:20 12:20 14:12 WBC (4.0-10.0) 10^3/ uL RBC (4.1-5.3) 10^6/u L Hgb (11.5-15.3) g/dL Hct (37.0-47.0) % MCV (81-99) fL MCH (28.0-34.0) pg MCHC (30.0-36.0) g/dL RDW (12.1-15.1) % Plt Count (130-400) 10^3/c mm MPV (7.4-10.4) fL Neut % (Auto) % Lymph % (Auto) % [place] % (Auto) % Eos % (Auto) % Baso % (Auto) % Neut # (Auto) (1.8-7.7) 10^3/u L Lymph # (Auto) (0.8-4.8) 10^3/u L [place] # (Auto) (0.2-0.9) 10^3/u L Eos # (Auto) (0.0-0.8) 10^3/u L Baso # (Auto) (0.0-0.1) 10^3/u L Nucleated RBC % (a uto) % Nucleated RBCs # /100WBC Sodium (136-145) mmol/L Potassium (3.5-5.1) mmol/L Chloride (98-107) mmol/L Carbon Dioxide (22-29) mmol/L Anion Gap (5-19) BUN (6-20) mg/dL Creatinine (0.5-0.9) mg/dL GFR Calculation (90-130) mL/min Glucose (65-115) mg/dL Calcium (8.5-10.5) mg/dL Total Bilirubin (0.15-1.2) mg/dL AST (0-32) U/L ALT (0-33) U/L Alkaline Phosphata se (35-105) IU/L Troponin T Gen 5 n g/L 6.00 Total Protein (6.6-8.7) g/dL Albumin (3.5-5.2) g/dL Globulin (1.3-4.6) g/dL Lipase (13-60) U/L HCG, Qual (Negative) Urine Color Yellow (Yellow) Urine Appearance Clear (CLEAR) Urine pH 7 (5-7) Ur Specific Gravit y 1.005 (1.005-1.030) Urine Protein Neg (Negative) Urine Glucose (UA) Norm (Normal) Urine Ketones Negative (Negative) Urine Occult Blood Neg (Negative) Urine Nitrate Negative (Negative) Urine Bilirubin Neg (NEGATIVE) Urine Urobilinogen Norm (Negative) mg/dL Ur Leukocyte Niurka ase Negative (Negative) Hepatitis A IgM Ab Non-reactive (Nonreactive) Hep Bs Antigen Non-reactive (Nonreactive) Hep B Core IgM Ab Non-reactive (Nonreactive) Hepatitis C Antibo dy Non-reactive (Nonreactive) Discharge Plan Discharge Patient Disposition: Admitted As Inpatient Clinical Impression: Elevated LFTs, Partial small bowel obstruction Condition: Stable Referrals: Lucille Black MD [Primary Care Provider] - Coding Level of Care Code ED Waist Pleater for Chg Fwd Exam Problem Focused
[2019-06-06 12:31] LABS: Basophils % 0.5 %; Eosinophils # 0.2 10^3/uL (0.0-0.8); Eosinophils % 2.5 %; Hemoglobin 13.4 g/dL (11.5-15.3); Lymphocytes # 1.7 10^3/uL (0.8-4.8); Lymphocytes % 27.6 %; Mean Corpuscular HGB Conc 31.9 g/dL (30.0-36.0); Mean Corpuscular Hemoglobin 28.9 pg (28.0-34.0); Mean Corpuscular Volume 90.5 fL (81-99); Mean Platelet Volume 10.5 fL (7.4-10.4); Monocytes # 0.5 10^3/uL (0.2-0.9); Monocytes % 7.8 %; Neutrophils # 3.7 10^3/uL (1.8-7.7); Neutrophils % 61.3 %; Nucleated Red Blood Cells % 0 %; Platelet Count 287 10^3/cmm (130-400); Red Blood Count 4.64 10^6/uL (4.1-5.3); Red Cell Distribution Width 13.2 % (12.1-15.1)
--- NOTE | 2019-06-06 12:31 | CT_ITS ---
WS: [id number] CT ABDOMEN AND PELVIS WITH CONTRAST HISTORY: upper abdominal pain TECHNIQUE: Imaging performed of the abdomen and pelvis with IV contrast. Single phase imaging of the abdomen. Coronal and sagittal reformats are submitted. All CT scans at [facility] use at least one of these dose optimization techniques: automated exposure control; mA and/or kV adjustment per patient size (includes targeted exams where dose is matched to clinical indication); or iterativ e reconstruction. IV CONTRAST: Omnipaque 300; 95 mL IV. Oral contrast: No DLP: 1541.26 mGy.cm COMPARISON: 06/04/2019 Lower thorax: Lung bases are clear. Heart is normal size. Small hiatal hernia. Liver/biliary system: Normal size with no intrahepatic dilatation. Gallbladder: Well distended gallbladder. There is no adjacent inflammation or pericholecystic fluid. Stones are not identified by CT. Stones were recently identified by ultrasound. Pancreas: Normal. Spleen: Normal. Adrenal glands: Normal. Right kidney: Normal. Left kidney: Normal. Aorta: Normal. Lymphadenopathy: None. Free fluid: None. GI tract: Extensive diverticular disease throughout the GI tract. The appendix has been removed. Mild collapse of the transverse colon. There is submucosal edema in the wall of the transverse colon whic h is new. Extensive diverticular disease throughout the sigmoid colon. Mild dilatation of the proxima l small bowel loops with fluid and air measuring up to 3.3 cm. There is hyperemia of the small bowel loops. Abdominal wall: Unremarkable abdominal wall. No hernia. Pelvis: Normal. Bones: Unremarkable. CT/CT abdomen pelvis w con* [id number] IMPRESSION: 1. Extensive colonic diverticulosis without acute diverticulitis. 2. New submucosal edema in the transverse colon. Not a lot of adjacent inflamm atory change but early colitis should be considered. 3. Proximal small bowel dilatation in the LEFT upper abdomen. May be a sentine l loop associated with an adjacent inflammatory process. 4. Gallbladder is top normal distention without adjacent changes of acute chol ecystitis. Numerous gallstones were identified by ultrasound. 5. Prior appendectomy.
--- NOTE | 2019-06-06 12:31 | US_ITS ---
WS: [id number] RIGHT UPPER QUADRANT ULTRASOUND HISTORY: RUQ/epigastric pain COMPARISON: None available. Liver: 16.2 cm in length. Normal size and echogenicity with no intrahepatic dilatation. No mass. Gallbladder: Well distended gallbladder, top normal transverse diameter. Multiple small stones layeri ng in the gallbladder with shadowing. No wall thickening or pericholecystic fluid. CBD: 5.8 cm Pancreas: Not visualized. Right kidney: 10.7 cm in length. Normal echogenicity with no mass or hydronephrosis. Aorta and IVC: Unremarkable. No ascites. US/US gall bladder [id number] IMPRESSION: 1. Cholelithiasis without evidence for acute cholecystitis. 2. No bile duct dilatation.
--- NOTE | 2019-06-06 12:43 | ECG_ITS ---
Measurements Intervals [place] Rate: 54 P: 37 [place]: 140 QRS: 67 QRSD: 76 T: 56 QT: 444 QTc: 421 SINUS BRADYCARDIA LOW QRS VOLTAGE IN PRECORDIAL LEADS [QRS DEFLECTION < 1.0 mV IN CHEST LEADS] Compared to ECG 09/25/2018 18:13:12 Low QRS voltage now present Sinus rhythm no longer present Right bundle-branch block no longer present Electronically Signed On 06-06-2019 20:43:20 COMPUTER ASSEMBLER by Omkar Abad M.D. [email or web address]
[2019-06-06] MEDS: sodium chloride 0.9% 1,000 ML 999 ML IV (12:45)
[2019-06-06 12:46] LABS: Alanine Aminotransferase 658 U/L (0-33); Albumin Level 4.7 g/dL (3.5-5.2); Alkaline Phosphatase 166 IU/L (35-105); Anion Gap 16.2 (5-19); Aspartate Amino Transferase 559 U/L (0-32); Blood Urea Nitrogen 10 mg/dL (6-20); Calcium 10.1 mg/dL (8.5-10.5); Carbon Dioxide 25 mmol/L (22-29); Chloride 101 mmol/L (98-107); Globulin 2.9 g/dL (1.3-4.6); Glucose 114 mg/dL (65-115); Lipase 107 U/L (13-60); Potassium 4.2 mmol/L (3.5-5.1); Sodium 138 mmol/L (136-145); Total Bilirubin 0.7 mg/dL (0.15-1.2); Total Protein 7.6 g/dL (6.6-8.7)
[2019-06-06] MEDS: ondansetron 2 mg/ML SDV 2 mL 4 MG IVP ×2 (12:46→15:00)
[2019-06-06 12:47] LABS: HCG, Serum Qual Negative (Negative)
[2019-06-06] MEDS: morphine 4 mg/mL SDV 1 mL IVP (12:47)
--- NOTE | 2019-06-06 12:48 | XR_ITS ---
WS: [id number] PORTABLE CHEST HISTORY: cough/congestion COMPARISON: 05/11/2017 Hyperinflated lungs with haziness over both lungs and calcified granulomata. No pneumonia. No pleural effusion or pneumothorax. Cardiac size: Mildly enlarged cardiac silhouette. Mediastinum/Aorta: Mild atherosclerosis aorta. No osseous abnormality seen. XR/XR chest 1V portable [id number] IMPRESSION: 1. Chronic emphysema and prior granulomatous disease. 2. Mild cardiomegaly. 3. No pneumonia.
[2019-06-06] MEDS: iohexol 300 mg/mL 100 mL Btl IV (13:24)
[2019-06-06] MEDS: HYDROmorphone 1 mg/mL INJ 1 mL 0.5 MG IVP ×2 (13:34→16:14)
[2019-06-06 14:12] LABS: Hepatitis A Antibody IgM. Non-Reactive (Nonreactive); Hepatitis B Core IgM Non-Reactive (Nonreactive); Hepatitis B Surface Antigen. Non-Reactive (Nonreactive); Hepatitis C Virus Antibody Non-Reactive (Nonreactive)
[2019-06-06 14:41] LABS: Add Urine Microscopic? NO
[2019-06-06 14:44] LABS: Bilirubin Urine Neg (NEGATIVE); Blood Urine Neg (Negative); Glucose Urine UA Norm (Normal); Ketones Urine Negative (Negative); Leukocyte Esterase Urine Negative (Negative); Nitrate Urine Negative (Negative); Protein Urine Neg (Negative); Specific Gravity, Urine 1.005 (1.005-1.030); Urine Appearance Clear (CLEAR); Urine Color Yellow (Yellow); Urobilinogen Urine Norm (Negative); pH Urine 7 (5-7)
[2019-06-06] MEDS: ciprofloxacin 400 MG/200 ML PREMIX 200 MG IV (15:36)
[2019-06-06] MEDS: metoclopramide 5 mg/mL SDV 2 mL 10 MG IVP (16:14)
[2019-06-06] MEDS: metroNIDAZOLE IV 500 MG/100 ML PREMIX 100 MG IV (16:19)
--- NOTE | 2019-06-06 17:59 | PM.CONSULT ---
Providers/Reason For Consult Consulting Physican/Specialty*: Dr Goldberg Reason for Consult*: Abdominal Pain Attending Physician: Natalee Izaguirre MD Primary Care Provider: Lucille Black MD History of Present Illness History of Present Illness Chief Complaint: Abdominal pain History of present illness: Felicia Weaver is a 54 year old female presents to the emergency department yesterday with worsening abdominal pain mostly in the upper abdomen referred to the back, colicky in nature, nothing seems to make it better, patient reports over the last weekend she had crabmeat, Monday did not feel well but Monday started to have nausea vomiting and nonbloody diarrhea, came to the emergency department and she was worked up and a CT scan was obtained and patient was discharged home, return back to the emergency department on with worsening abdominal pain nausea vomiting yet she did encounter constipation, element of blood in stool. Apparently the patient spouse and son had the same meal but only the patient did encounter more remarkable symptoms, as her did not feel well for some time but he was okay later on. She denies any recent travel or antimicrobial therapy. Patient reports that she had a colonoscopy not for long and showed diverticulosis Yesterday the CT scan of the abdomen and pelvis was done showed transverse colon colitis and hyperemia of the small bowel, and incidental finding of cholelithiasis. Also patient was found to have elevated liver enzymes but normal bilirubin and an ultrasound of the gallbladder and liver showed no choledocholithiasis or intrahepatic biliary dilation rather gallbladder stones without cholecystitis General surgery was consulted for further evaluation Review of Systems General: Reports: 10 or more systems reviewed and unremarkable except in HPI and below Const: Denies: fever, chills or body aches Eyes: Denies: change in vision, blurry vision or photophobia ENMT: Reports: hoarseness; Denies: throat pain, enlarged tonsils, painful swallowing or nasal congestion Card: Denies: chest pain, palpitations, irregular heart rhythm, edema, swelling of feet/ankles, lightheadedness, pre-syncope, shortness of breath on exertion or shortness of breath when lying down Resp: Denies: shortness of breath, productive cough, non-productive cough, wheezing, stridor, pain on inspiration, change in phlegm color, coughing up blood or chest congestion GI: Reports: abdominal pain, nausea and vomiting; Denies: vomiting blood, coffee grounds in vomit, difficulty swallowing, heartburn/indigestion, diarrhea, constipation, cramping, change in stool character, blood in stool or black tarry stool : Denies: flank pain, difficulty urinating, painful urination, urinary frequency, urinary urgency, urinary hesitancy or blood in urine Musc: Denies: neck pain, back pain, extremity pain, joint swelling, joint warmth or deformity Neuro: Denies: headache, numbness in extremities, weakness in extremities, changes in sensation, difficulty walking, frequent falls, dizziness, vertigo, behavioral changes, slurred speech or seizure-like activity Psych: Denies: anxiety, depression, suicidal ideation or homicidal ideation Endo: Denies: excessive urination, excessive thirst, tired all the time, cold intolerance or hot flashes Quan/Lymph: Denies: easy bruising or easy bleeding Meds/Allergies Home Medications and Allergies Home Medications Medication Instructions Recorded Confirmed Type Vitamin B-12 2 tab PO DAILY 06/06/19 06/06/19 History acetaminophen [Tylenol Extra 500 mg PO Q6H PRN 06/06/19 06/06/19 History Strength] cholecalciferol (vitamin D3) 125 mcg PO DAILY 06/06/19 06/06/19 History [Vitamin D3] Allergies Allergy/AdvReac Type Severity Reaction Status Date / Time No Known Allergies Allergy Verified 06/07/19 07:29 PFSH Acute PFSH: Surgical History History of appendectomy Social History Smoking and tobacco status: former smoker Vitals/I&O/Wt Last Vital Signs Temp 97.8 F 06/06/19 17:43 Pulse 53 L 06/06/19 17:43 Resp 20 H 06/06/19 17:43 BP 117/76 06/06/19 17:43 Pulse Ox 98 06/06/19 17:43 Weight last 48 hrs Weight 215 lb Physical Exam Const: COMMON NORMALS: no apparent distress and oriented x3 GENERAL APPEARANCE: cooperative ORIENTATION/CONSCIOUSNESS: Yes awake, Yes oriented to person, Yes oriented to place and Yes oriented to time HENMT: COMMON NORMALS: normocephalic HEAD & SCALP: normocephalic Eye: COMMON NORMALS: PERRL and no scleral icterus PUPIL: Yes PERRL Lymph: LYMPHATIC: no lymphadenopathy noted Chest: COMMONS NORMALS: inspection of chest normal Resp: COMMON NORMALS: normal respiratory effort and clear to auscultation bilaterally AUSCULTATION: clear to auscultation bilaterally Cardio: COMMON NORMALS: S1 normal heart sound and S2 normal heart sound; negative for no murmurs HEART SOUNDS: S1 normal and S2 normal GI: COMMON NORMALS: soft to palpation; negative for no hepatosplenomegaly INSPECTION: Yes normal to inspection PALPATION: Yes soft, No firm, Yes tender (Mostly in the upper abdomen particularly in the epigastric and periumbilical region), No guarding, No rigid and No no hepatosplenomegaly Neuro: COMMON NORMALS: oriented x3 SENSORIUM/ORIENTATION: Yes oriented to person, Yes oriented to place and Yes oriented to time A&P Assessment and plan (1) Enterocolitis: After thorough history physical examination and reviewing the chart and images with my personal interpretation, I do believe that the patient had an element of food poisoning, that will require bowel rest, IV fluid resuscitation and IV antimicrobial therapy in the form of ciprofloxacin and Flagyl. I am fully aware of the incidental finding of the cholelithiasis but I do not think at this point this is the patient's main clinical scenario. Repeated physical examination Pharmacologic DVT prophylaxis Encourage ambulation Strict I's and O's Repeat blood work in the morning particularly liver function tests which I do believe the elevation likely due to cholestasis probably the patient has been dehydrated. There is no acute surgical intervention at this point If the patient encounter and another episode of diarrhea definitely will send for stool studies Status: Acute Code(s): K52.9 - Noninfective gastroenteritis and colitis, unspecified Consult Attestations Medical Necessity Statement: Per Hospitalist service Time Spent in Patient Care: 16 - 35 minutes (>than 50% of time spent in counselling and/or direct pt care on unit). Coding Level of Care Code Acute Sales Representative Printing Paper for [facility] Fw Exam Problem Focused Diagnoses Enterocolitis K52.9
[2019-06-06] MEDS: dextrose 5%-sod chloride 0.9% 1,000 ML 75 ML IV (18:01)
[2019-06-06] MEDS: enoxaparin 40 mg/0.4 mL Syringe SUBCUT (18:01)
--- NOTE | 2019-06-06 18:13 | P.HP_ITS ---
Providers/Chief Complaint Admitting Physician: Natalee Izaguirre MD Primary Care Provider: Lucille Black MD Chief Complaint: abd pain/vomiting History of Present Illness Felicia Weaver is a 54 year old female without significant comorbidities who presents with abdominal pain. States pain was sudden in onset, started 2 days ago while she was sitting in bed, sharp stabbing type, 10/10 mainly in the RUQ and epigatrsic region radiating to back along B/L sides. Made worse with movements and taking deep breath. Associated with nausea, vomiting and diarrhea. She presented to ER on 06/04 with above complaints. At this time CT abdomen was negative for acute abnormalities. AST/ALT were mildly elevated. She was discharged with symptomatic rx. Over the next day pain has persisted, worsening in RUQ with deep breath, mostly 5/10 with intermittent increase to 10/10. Nausea and vomiting persist. Diarrhea has resolved. Yesetrday she was constipated, had passage of hard stools with blood streaks which she also noted on toilet paper with pain at anus with stool passage. No tenesmus. No blood in toilet bowl. Diagnostics today show AST/ALT >500/600, lipase ~100, mildly elevated ALP. USG RUQ with numerous gallstones, but no evidence of cholecystitis. CT abdomen/pelvis without cholecytistis, no CBD dilatation. No fever or chills. no alcohol intake Review of Systems General: Reports: 10 or more systems reviewed and unremarkable except in HPI and below Const: Denies: fever, chills or body aches Eyes: Denies: change in vision, blurry vision or photophobia ENMT: Reports: hoarseness; Denies: throat pain, enlarged tonsils, painful swallowing or nasal congestion Card: Denies: chest pain, palpitations, irregular heart rhythm, edema, sw elling of feet/ankles, lightheadedness, pre-syncope, shortness of breath on exertion or shortness of breath when lying down Resp: Denies: shortness of breath, productive cough, non-productive cough, wheezing, stridor, pain on inspiration, change in phlegm color, coughing up blood or chest congestion GI: Reports: abdominal pain, nausea and vomiting; Denies: vomiting blood, coffee grounds in vomit, difficulty swallowing, heartburn/indigestion, diarrhea, constipation, cramping, change in stool character, blood in stool or black tarry stool : Denies: flank pain, difficulty urinating, painful urination, urinary frequency, urinary urgency, urinary hesitancy or blood in urine Musc: Denies: neck pain, back pain, extremity pain, joint swelling, joint w armth or deformity Neuro: Denies: headache, numbness in extremities, weakness in extremities, changes in sensation, difficulty walking, frequent falls, dizziness, vertigo, behavioral changes, slurred speech or seizure-like activity Psych: Denies: anxiety, depression, suicidal ideation or homicidal ideation Endo: Denies: excessive urination, excessive thirst, tired all the time, cold intolerance or hot flashes Quan/Lymph: Denies: easy bruising or easy bleeding Medications/Allergies Home Medications Medication Instructions Recorded Confirmed Last Taken Type Vitamin B-12 2 tab PO DAILY 06/06/19 06/06/19 Unknown History acetaminophen [Tylenol Extra 500 mg PO Q6H PRN 06/06/19 06/06/19 06/06/19 History Strength] cholecalciferol (vitamin D3) 125 mcg PO DAILY 06/06/19 06/06/19 Unknown History [Vitamin D3] Allergies Allergy/AdvReac Type Severity Reaction Status Date / Time No Known Allergies Allergy Verified 05/12/19 12:25 PFSH Acute PFSH: Surgical History (Updated 06/06/19 @ 19:08 by Natalee Izaguirre MD) History of appendectomy Social History Smoking and tobacco status: former smoker Vitals/I&O/Wt Last Vital Signs Temp 97.8 F 06/06/19 17:43 Pulse 53 L 06/06/19 17:43 Resp 20 H 06/06/19 17:43 BP 117/76 06/06/19 17:43 Pulse Ox 98 06/06/19 17:43 Weight last 48 hrs Weight 97.522 kg Physical Exam Narrative: EXAM NARRATIVE: GEN: Awake, alert and oriented, no acute distress CVS: S1S2 N RS: CTA B/L Abd: Soft, non distended, tenderness to palpation in right upper quadrant, Roseline y's sign+ CODING SPECIALIST HOME HEALTH: no focal neuro deficits Data : 06/06/19 12:20 02/13/20 12:20 A&P Assessment and plan (1) Elevated LFTs: Status: Acute Code(s): R94.5 - Abnormal results of liver function studies (2) Abdominal pain: Status: Acute Qualifiers: Abdominal location: generalized Qualified Code(s): R10.84 - Generalized abdominal pain Code(s): R10.9 - Unspecified abdominal pain (3) Cholelithiasis: Status: Acute Code(s): K80.20 - Calculus of gallbladder without cholecystitis without obstruction Additional A&P Information Admit to med/surg unit No overt signs of sepsis at this time Based on history of sudden onset abdominal pain, new transaminitis, mildly elevated lipase and ALP, tender RUQ overall impression is that of symptomatic cholelithiasis with likely passage of gallstones recently. No overt signs of cholecystitis at this time. Suspect transverse colitis and small bowel loop inflammation 2/2 local inflammation as clinically picture does not appear consistent with colitis. will trend LFTs in am and likely proceed with MRCP if persistent elevation. Of note CT does now show any biliary ductal dilatation. Not cholangitis given normal T.bili, no fevers. NPO for now with bowel rest D5NS @75 cc/hr maintainence Start zosyn empirically Check hepatitis serology to r/o acute hepatitis H/o blood streaked stools likely related to constipation, now resolved, less likely diverticular bleeding. Dr. Alexis from general surgery consulted by surgery Adalberto prn for nausea. Patient requested promethazine for nausea as it has worked well for her in the past. Pain control with dilaudid and toradol as needed DVT ppx: lovenox Code status: Full code Attestations Medical Necessity Statement*: w/up of abdominal pain, nausea, transaminitis. anticipate > 2 midnight stay Coding Level of Care Code Acute Lens Polisher Hand for Chg Fwd Diagnoses Elevated LFTs R94.5 Abdominal pain R10.84 Abdominal location: generalized Cholelithiasis K80.20
[2019-06-06 18:29] LABS: C Reactive Protein 2.9 mg/L (0.0-4.9)
[2019-06-06 18:40] LABS: Hepatitis B Surface AB. 42.8 (0-8.5)
[2019-06-06 20:36] LABS: Erythrocyte Sedimentation Rate 7 mm/hr (0-15)
[2019-06-06] MEDS: promethazine 25 mg/mL SDV 1 mL 12.5 MG IM (21:24)
[2019-06-06] MEDS: piperacillin-tazobactam 3.375 GM in sodium chloride 0.9% (plus) 50 ML IV (21:25)
[2019-06-06] MEDS: ketorolac 30 mg/mL INJ IVP (21:35)
[2019-06-07] VITALS: BP 98/59; PULSE 57; RESP 17; TEMP 37; O2SAT 97
[2019-06-07 04:00] VITALS: BP 102/64; PULSE 50; RESP 17; TEMP 36.8; O2SAT 95
[2019-06-07] MEDS: piperacillin-tazobactam 3.375 GM in sodium chloride 0.9% (plus) 50 ML IV ×3 (05:38→21:29)
[2019-06-07] MEDS: dextrose 5%-sod chloride 0.9% 1,000 ML 75 ML IV ×2 (05:39→20:53)
[2019-06-07 05:47] LABS: Basophils % 0.4 %; Eosinophils # 0.2 10^3/uL (0.0-0.8); Eosinophils % 3.1 %; Hematocrit 37.1 % (37.0-47.0); Hemoglobin 11.6 g/dL (11.5-15.3); Lymphocytes # 1.9 10^3/uL (0.8-4.8); Lymphocytes % 35.3 %; Mean Corpuscular HGB Conc 31.3 g/dL (30.0-36.0); Mean Corpuscular Hemoglobin 27.5 pg (28.0-34.0); Mean Corpuscular Volume 87.9 fL (81-99); Mean Platelet Volume 10.7 fL (7.4-10.4); Monocytes # 0.4 10^3/uL (0.2-0.9); Monocytes % 7.7 %; Neutrophils # 2.9 10^3/uL (1.8-7.7); Neutrophils % 53.3 %; Nucleated Red Blood Cells % 0 %; Platelet Count 247 10^3/cmm (130-400); Red Blood Count 4.22 10^6/uL (4.1-5.3); Red Cell Distribution Width 13.2 % (12.1-15.1); White Blood Count 5.5 10^3/uL (4.0-10.0)
[2019-06-07 06:17] LABS: Alanine Aminotransferase 400 U/L (0-33); Albumin Level 3.3 g/dL (3.5-5.2); Alkaline Phosphatase 127 IU/L (35-105); Anion Gap 13.6 (5-19); Aspartate Amino Transferase 198 U/L (0-32); Blood Urea Nitrogen 8 mg/dL (6-20); Carbon Dioxide 24 mmol/L (22-29); Chloride 105 mmol/L (98-107); Globulin 2.9 g/dL (1.3-4.6); Glucose 125 mg/dL (65-115); Potassium 3.6 mmol/L (3.5-5.1); Sodium 139 mmol/L (136-145); Total Bilirubin 0.6 mg/dL (0.15-1.2); Total Protein 6.2 g/dL (6.6-8.7)
--- NOTE | 2019-06-07 07:37 | PM.PN ---
Subjective Subjective: Interval history: Patient overall feels better still have nausea Her liver function tests are trending down No recorded fevers tachycardia or hypotension over the past shift Vitals/I&O/Wt Last Vital Signs Temp 98.2 F 06/07/19 04:00 Pulse 50 L 06/07/19 04:00 Resp 17 06/07/19 04:00 BP 102/64 06/07/19 04:00 Pulse Ox 95 06/07/19 04:00 06/06/19 06/07/19 06/07/19 22:59 06:59 14:59 Intake Total 922.5 / 922.5 Output Total 50 / 50 Balance -50 / -50 919.5 / 869.5 Weight last 48 hrs Weight 215 lb Physical Exam Const: COMMON NORMALS: no apparent distress and oriented x3 GENERAL APPEARANCE: cooperative ORIENTATION/CONSCIOUSNESS: Yes awake, Yes oriented to person, Yes oriented to place and Yes oriented to time Eye: COMMON NORMALS: PERRL and no scleral icterus PUPIL: Yes PERRL GI: COMMON NORMALS: soft to palpation; negative for no hepatosplenomegaly INSPECTION: Yes normal to inspection PALPATION: Yes soft, No firm, No tender, No guarding, No rigid and No no hepatosplenomegaly Neuro: COMMON NORMALS: oriented x3 SENSORIUM/ORIENTATION: Yes oriented to person, Yes oriented to place and Yes oriented to time Data : 06/07/19 05:15 06/07/19 05:15 A&P Assessment and plan (1) Enterocolitis: Patient can have ice chips for now,cam start clears later thru the day continue ciprofloxacin and Flagyl. Repeated physical examination Pharmacologic DVT prophylaxis Encourage ambulation Strict I's and O's Repeat LFTs in the morning I would highly recommend resuscitation with LR There is no acute surgical intervention at this point If the patient encounter and another episode of diarrhea definitely will send for stool studies Thank you for consulting general surgery to participate taking care Ms. Weaver Status: Acute Code(s): K52.9 - Noninfective gastroenteritis and colitis, unspecified Attestations Medical Necessity Statement*: Per hospitalist service Time Spent in Patient Care: 16 - 35 minutes (>than 50% of time spent in counselling and/or direct pt care on unit). Coding Level of Care Code Acute University Counselor for g Fwd Exam Problem Focused Diagnoses Enterocolitis K52.9
[2019-06-07 07:52] VITALS: BP 96/58; PULSE 55; RESP 18; TEMP 37; O2SAT 95
[2019-06-07] MEDS: ketorolac 30 mg/mL INJ IVP ×2 (09:13→18:49)
[2019-06-07 11:33] VITALS: BP 116/53; PULSE 66; RESP 18; TEMP 36.8; O2SAT 94
[2019-06-07] MEDS: acetaminophen 325 mg Tablet 650 MG PO (15:59)
[2019-06-07 16:00] VITALS: BP 110/74; PULSE 56; RESP 16; TEMP 36.6; O2SAT 98
--- NOTE | 2019-06-07 16:10 | PC.CHAP ---
Pastoral Care Encounter/Spiritual Assessment Type of Contact [] Declined blockmason visit [] Patient/Family/Request visit [] Outpatient visit [] Follow-up visit [] Physician referral [] Code/Alert [x] Routine visit [] Staff referral [] Actively dying [] Patient sleeping [] Family support [] [] Out of room [] Palliative care [] [x] Receiving care in room [] Pre-surgical visit [] Trauma [] Long length of stay [] ICU visit [] Other: Relational/Emotional Strength [x] Patient feels connected with others/family/visitors/staff [] Distress [] Loneliness/isolation [] Abandonment Spirituality of Patient [x] Person of Shavonne [] Attends Buddhist of their [place] [x] Believes in Prayer [] Reads Bible or Rastafari materials [] There are Spiritual issues to be addressed Colorist Photography Interventions [x] Prayer [x] Active listening [x] Non-anxious presence [x] Spiritual/emotional support [] Crisis/trauma care [x] Spiritual counseling [] Bereavement support [] Provided bereavement packet [] Provided Bible/devotional materials [] Provided toy/stuffed animal, coloring book to patient or family member [] Provided Communion [] Anointing/[place] [] Salvation [x] Completed spiritual assessment [] Other: Impact on Illness or Injury [] Angry [] Fearful [x] Anxious [] Often cries [] Exhaustion [] Unable to work [] Unable to attend methodist [] Unable to walk/stand [] Unable to read [] Unable to drive [] Unable to eat/drink [] Unable to sleep [] Unable to be with family [] Patient intubated [] Other: Summary plus 3 others in room. Patient need more test. Time spent with patient 10 min
[2019-06-07] MEDS: promethazine 25 mg/mL SDV 1 mL 12.5 MG IM (17:51)
[2019-06-07] MEDS: enoxaparin 40 mg/0.4 mL Syringe SUBCUT (17:52)
[2019-06-07] MEDS: HYDROmorphone 1 mg/mL INJ 1 mL 0.5 MG IVP ×2 (17:52→23:50)
--- NOTE | 2019-06-07 18:29 | US_ITS ---
WS: [id number] ABDOMINAL ULTRASOUND LIMITED REASON FOR VISIT: right upper quadrant TECHNIQUE: Grayscale and Doppler ultrasound examination of the abdomen. FINDINGS: Pancreas: Negative findings. Abdominal aorta and IVC: Within normal limits. Liver: Liver measures 15.9 cm in length. No dilated ducts identified. Gallbladder: Gallbladder wall thickness measures 2.8 mm. Multiple stones are identified. Right kidney: Right kidney measures 9.8 cm x 5.8 cm x 5.1 cm. US/US abdomen limited [id number] IMPRESSION: Multiple cholelithiasis with findings suggesting acute cholecystitis.
--- NOTE | 2019-06-07 18:29 | P.PN_ITS ---
Subjective Subjective: Interval history: Patient seen and examined this morning and again this evening. She was feeling improved this am with improving pain. LFTs improving, Held off on MRCP for this reason. Hepatitis serology negative. She was started on clear liquid diet, tolerated until this evening when RUQ pain has recurred. No c/o diarrhea. No bleeding per recum. Medications: Reviewed: Yes Vitals/I&O/Wt Last Vital Signs Temp 97.9 F 06/07/19 16:00 Pulse 56 L 06/07/19 16:00 Resp 16 06/07/19 16:00 BP 110/74 06/07/19 16:00 Pulse Ox 98 06/07/19 16:00 06/07/19 06/07/19 06/07/19 06:59 14:59 22:59 Intake Total 922.5 / 922.5 50 / 50 Output Total 3 / 53 Balance 919.5 / 869.5 50 / 50 Weight last 48 hrs Weight 97.522 kg Physical Exam Narrative: EXAM NARRATIVE: GEN: Awake, alert and oriented, no acute distress CVS: S1S2 N RS: CTA B/L except crackles over RUL Abd: Soft, non distended, TTP over RUQ, especially with deep palpation HADOOP INFRASTRUCTURE ARCHITECT: no focal neuro deficits Data : 06/07/19 05:15 06/07/19 05:15 A&P Assessment and plan (1) Elevated LFTs: Status: Acute Code(s): R94.5 - Abnormal results of liver function studies (2) Abdominal pain: Status: Acute Qualifiers: Abdominal location: generalized Qualified Code(s): R10.84 - Generalized abdominal pain Code(s): R10.9 - Unspecified abdominal pain (3) Cholelithiasis: Status: Acute Code(s): K80.20 - Calculus of gallbladder without cholecystitis without obstruction Additional A&P Information Based on history of sudden onset abdominal pain, new transaminitis, mildly elevated lipase and ALP, tender RUQ overall suspect symptomatic cholelithiasis with likely passage of gallstones recently. No overt signs of cholecystitis at this time. However no biliary dilatation on recent CT and US. Recurrent RUQ pain after starting clears. Made NPO for now again. Rpt USG RUQ. Will trend LFTs in am and likely proceed with MRCP if recurrent elevation. Of note CT does now show any biliary ductal dilatation. Not cholangitis given normal T.bili, no fevers. Transverse colitis and small bowel loop inflammation may be reactive. Diarrhea currently resolved, lasted <24 hr Continue D5NS @75 cc/hr maintainence Continue zosyn empirically hepatitis serology negative H/o blood streaked stools likely related to constipation, now resolved, less likely diverticular bleeding. Zofran, promethazine prn for nausea. Pain control with dilaudid and toradol as needed . Patient requests tylenol, however avoiding due to liver dysfunction DVT ppx: lovenox Code status: Full code Attestations Medical Necessity Statement*: awaiting symptomatic improvement, trending LFTs Coding Level of Care Code Acute [employer] Curtain Machine Tender for Chg Fwd Diagnoses Elevated LFTs R94.5 Abdominal pain R10.84 Abdominal location: generalized Cholelithiasis K80.20
[2019-06-07 20:00] VITALS: BP 108/72; PULSE 61; RESP 18; TEMP 36.4; O2SAT 93
[2019-06-07] MEDS: ondansetron 2 mg/ML SDV 2 mL 4 MG IVP (21:32)
[2019-06-08] VITALS (10 sets, daily range): BP systolic 111–132; BP diastolic 65–82; PULSE 56–68; RESP 16–22; TEMP 36.4–37; O2SAT 91–100
[2019-06-08] MEDS: promethazine 25 mg/mL SDV 1 mL 12.5 MG IM ×2 (02:41→19:31)
[2019-06-08] MEDS: ketorolac 30 mg/mL INJ IVP ×2 (02:42→21:03)
[2019-06-08 05:56] LABS: Lipase 33 U/L (13-60)
[2019-06-08] MEDS: piperacillin-tazobactam 3.375 GM in sodium chloride 0.9% (plus) 50 ML IV ×3 (06:01→21:03)
[2019-06-08] MEDS: HYDROmorphone 1 mg/mL INJ 1 mL 0.5 MG IVP ×3 (06:03→23:08)
[2019-06-08] MEDS: ondansetron 2 mg/ML SDV 2 mL 4 MG IVP ×2 (06:03→23:08)
--- NOTE | 2019-06-08 07:57 | PM.PN ---
Subjective Subjective: Interval history: Patient does have worsening nausea and she was not able to tolerate clear liquids except for 2 hours yesterday evening, did not see any blood work ordered on the chart for today except for serum lipase that came back 33. Patient describes her pain mostly in the epigastric region and referred to the back Vitals/I&O/Wt Last Vital Signs Temp 98.4 F 06/08/19 07:36 Pulse 68 06/08/19 07:36 Resp 16 06/08/19 07:36 BP 122/82 06/08/19 07:36 Pulse Ox 95 06/08/19 07:36 06/07/19 06/08/19 06/08/19 22:59 06:59 14:59 Intake Total 1330 / 1380 50 / 1430 Output Total 300 / 300 375 / 675 Balance 1030 / 1080 -325 / 755 Weight last 48 hrs Weight 215 lb Physical Exam Const: COMMON NORMALS: no apparent distress and oriented x3 GENERAL APPEARANCE: cooperative ORIENTATION/CONSCIOUSNESS: Yes awake, Yes oriented to person, Yes oriented to place and Yes oriented to time HENMT: COMMON NORMALS: normocephalic HEAD & SCALP: normocephalic Eye: COMMON NORMALS: PERRL and no scleral icterus PUPIL: Yes PERRL Chest: COMMONS NORMALS: inspection of chest normal GI: COMMON NORMALS: soft to palpation; negative for no hepatosplenomegaly INSPECTION: Yes normal to inspection PALPATION: Yes soft, No firm, Yes tender (Tenderness more at the epigastric region on deep palpation), No guarding, No rigid and No no hepatosplenomegaly Neuro: COMMON NORMALS: oriented x3 SENSORIUM/ORIENTATION: Yes oriented to person, Yes oriented to place and Yes oriented to time Data : 06/08/19 04:55 06/08/19 04:55 A&P Assessment and plan (1) Abdominal pain: From surgical standpoint of view will send for repeat CMP,CBC& lipid profile We will add scopolamine patch to help with the nausea We will add Pepcid IV 20 mg twice daily Patient can have ice chips for now Underlying gastropathy can be a cause for patient's symptoms in addition to her enterocolitis. Continue IV antibiotics Repeated physical examination Assurance and education All questions have been answered and all concerns have been addressed to patient's satisfaction. Status: Acute Qualifiers: Abdominal location: generalized Qualified Code(s): R10.84 - Generalized abdominal pain Code(s): R10.9 - Unspecified abdominal pain Attestations Medical Necessity Statement*: Medical necessity care is expected to cross 2 midnights Time Spent in Patient Care: 16 - 35 minutes (>than 50% of time spent in counselling and/or direct pt care on unit). Coding Level of Care Code Acute [employer] Machine Operator for Chg Fwd Exam Detailed Diagnoses Abdominal pain R10.84 Abdominal location: generalized
[2019-06-08] MEDS: dextrose 5%-sod chloride 0.9% 1,000 ML 75 ML IV ×2 (08:49→23:50)
[2019-06-08] MEDS: famotidine 20 mg/2 mL INJ IVP ×2 (08:50→21:03)
[2019-06-08] MEDS: scopolamine 1.5 Patch 1 PATCH TRANSDERMA (08:50)
[2019-06-08 09:10] LABS: Basophils % 0.5 %; Eosinophils # 0.2 10^3/uL (0.0-0.8); Eosinophils % 3.5 %; Hematocrit 35.6 % (37.0-47.0); Hemoglobin 11.4 g/dL (11.5-15.3); Lymphocytes # 1.3 10^3/uL (0.8-4.8); Lymphocytes % 21.9 %; Mean Corpuscular Hemoglobin 28.1 pg (28.0-34.0); Mean Corpuscular Volume 87.9 fL (81-99); Mean Platelet Volume 11.3 fL (7.4-10.4); Monocytes # 0.5 10^3/uL (0.2-0.9); Monocytes % 7.5 %; Neutrophils % 66.4 %; Nucleated Red Blood Cells % 0 %; Platelet Count 240 10^3/cmm (130-400); Red Blood Count 4.05 10^6/uL (4.1-5.3); Red Cell Distribution Width 13.2 % (12.1-15.1)
[2019-06-08 09:40] LABS: Alanine Aminotransferase 314 U/L (0-33); Albumin Level 3.7 g/dL (3.5-5.2); Alkaline Phosphatase 133 IU/L (35-105); Aspartate Amino Transferase 122 U/L (0-32); Blood Urea Nitrogen 9 mg/dL (6-20); Carbon Dioxide 25 mmol/L (22-29); Chloride 107 mmol/L (98-107); Cholesterol 153 mg/dL (0-200); Globulin 2.3 g/dL (1.3-4.6); Glomerular Filtration Rate 87.5 mL/min (90-130); Glucose 132 mg/dL (65-115); HDL Cholesterol 34 mg/dL (60-100); LDL Cholesterol Calculated 93 mg/dL (50-129); LDL HDL Ratio 2.74 RATIO (0.00-3.22); Sodium 143 mmol/L (136-145); Total Bilirubin 0.7 mg/dL (0.15-1.2); Triglycerides 132 mg/dL (0-150)
[2019-06-08] MEDS: sodium chloride 0.9% 500 ML IV (11:49)
--- NOTE | 2019-06-08 16:02 | PM.PN ---
Subjective Subjective: Interval history: Patient continues to be nauseous. She had multiple episodes of emesis overnight. No diarrhea. Continues to have pain in the epigastric region and right upper quadrant. Right upper quadrant pain worsening with deep inspiration as previously described. Also describes radiation to her back unchanged since admission. Ultrasound report from yesterday evening when reviewed by me earlier today morning had said that patient has cholelithiasis but no signs of cholecystitis. However upon reviewing this report again in the evening, it said there was evidence of cholecystitis. Upon discussion with IT, it appears that due to issues with software, in the morning radiology reports were not crossing over and in fact some of the morning reports had been deleted from [employer] accidentally. Therefore radiological tests had to be reinterpreted and re-reported. This makes me wonder if this is the reason for discordant results between morning and evening. Medications: Reviewed: Yes Vitals/I&O/Wt Last Vital Signs Temp 98.5 F 06/08/19 15:29 Pulse 66 06/08/19 15:29 Resp 20 H 06/08/19 15:29 BP 129/79 06/08/19 15:29 Pulse Ox 100 06/08/19 15:29 06/08/19 06/08/19 06/08/19 06:59 14:59 22:59 Intake Total 50 / 1430 1095 / 1095 Output Total 375 / 675 700 / 700 Balance -325 / 755 395 / 395 Physical Exam Narrative: EXAM NARRATIVE: GEN: Awake, alert and oriented, c/o pain, uncomfortable CVS: S1S2 N RS: CTA B/L Abd: Soft, non distended, TTP over RUQ, especially with deep palpation , unchanged since previous exams. epigastric discomfort+ DIE CAST SUPERVISOR: no focal neuro deficits EXT: no cyanosis, clubbing or edema Data : 06/08/19 04:55 06/08/19 04:55 A&P Assessment and plan (1) Elevated LFTs: Status: Acute Code(s): R94.5 - Abnormal results of liver function studies (2) Abdominal pain: Status: Acute Qualifiers: Abdominal location: generalized Qualified Code(s): R10.84 - Generalized abdominal pain Code(s): R10.9 - Unspecified abdominal pain (3) Cholelithiasis: Status: Acute Code(s): K80.20 - Calculus of gallbladder without cholecystitis without obstruction Additional A&P Information Based on history of sudden onset abdominal pain, new transaminitis, mildly elevated lipase and ALP, tender RUQ overall suspect symptomatic cholelithiasis with likely passage of gallstones recently. No overt signs of cholecystitis at this time with no leukocytosis, fever or signs of sepsis. USG RUQ was performed last evening due to worsening right upper quadrant pain and worsening nausea. Ultrasound had discordant results when reviewed this morning and again this evening. The evening report did make note of cholecystitis. To evaluate further given that patient is still symptomatic with no relief in symptoms and above results with cholecystitis, we will go ahead and proceed with MRCP. HIDA is being avoided per surgical recommendations as may have the potential to push gallstones further. LFT remains stable. Hepatitis serology negative for A/B/C. Transverse colitis and small bowel loop inflammation may be reactive. Continue D5NS @75 cc/hr maintainence Continue zosyn empirically H/o blood streaked stools likely related to constipation, now resolved, less likely diverticular bleeding. Zofran, promethazine prn for nausea. Pain control with dilaudid and toradol as needed . Patient requests tylenol, however avoiding due to liver dysfunction DVT ppx: lovenox Code status: Full code Attestations Medical Necessity Statement*: ongoing symptoms with nausea and RUQ pain, undergoing evaluation Coding Level of Care Code Acute Hand Sewer for Melva Dominguez Diagnoses Elevated LFTs R94.5 Abdominal pain R10.84 Abdominal location: generalized Cholelithiasis K80.20
--- NOTE | 2019-06-08 16:03 | MRR_ITS ---
PROCEDURE INFORMATION: Exam: MR Abdomen Without Contrast Exam date and time: 06/08/2019 5:23 PM Age: 54 years old Clinical indication: Abdominal pain; Colic; Additional info: Cholelithiasis, c/f cholecytistis TECHNIQUE: Imaging protocol: MR of the abdomen without contrast. COMPARISON: US gall bladder [id number] 06/06/2019 12:58 PM FINDINGS: Liver: No mass. Gallbladder and bile ducts: Multiple lamellated stones in the gallbladder measuring up to 14 mm. The gallbladder wall is normal. No pericholecystic fluid. The common bile duct measures 7 mm. On the thick slab MRCP images, there are 2 small filling defects in the distal common bile duct measuring 2-3 mm. Pancreas: Unremarkable. No ductal dilation. Spleen: Unremarkable. No splenomegaly. Adrenals: Unremarkable. No mass. Kidneys and ureters: Unremarkable. No solid mass. No hydronephrosis. Stomach and bowel: Unremarkable. Intraperitoneal space: No fluid collection. Arteries: No abdominal aortic aneurysm. Bones/joints: Unremarkable. Soft tissues: Unremarkable. MR/MR MRCP [id number] IMPRESSION: 1. Two small 2-3 mm stones in the distal common bile, without bile duct dilatation. 2. Cholelithiasis.
--- NOTE | 2019-06-08 19:17 | P.TS_ITS ---
Transfer Summary Providers Date of Admission: 06/06/19 16:05 Date of Discharge: 06/08/19 Attending Provider at Admission: Natalee Iazguirre MD Attending Provider at Transfer: Natalee Izaguirre MD Primary Care Provider: Lucille Black MD Anticipated Date of Transfer: Anticipated date of transfer: 06/08/19 Receiving Facility & Provider: Receiving Provider: [] Receiving facility: [] Diagnoses at Discharge Discharge Diagnosis (1) Elevated LFTs: Status: Acute (2) Abdominal pain: Status: Acute Qualifiers: Abdominal location: generalized Qualified Code(s): R10.84 - Generalized abdominal pain (3) Cholelithiasis: Status: Acute Reason for Visit Reason for Visit: Reason For Visit: abd pain/vomiting Hospital Course Discharge Summary: please refer to my progress note from today. Addendum to note: MRCP showed CBD stones. Multiple lamellated stones in the gallbladdermeasuring up to 14 mm. The gallbladder wall is normal. No pericholecystic fluid. The common bile duct m easures 7 mm. With above findings, patient will need ERCP. Continues to be symptomatic. TS Data Data Completed and Pending: Completed Studies During Hospitalization Category Date Time Status CT abdomen pelvis w con* [id number] Urge nt Cat Scan 06/06/19 12:31 Completed XR chest 1V jayro ble [id number] Urgent Exams 06/06/19 12:48 Completed MR MRCP [id number] Sta t MRI 06/08/19 16:03 Completed US abdomen limite d [id number] Routine Ultrasound 06/07/19 18:29 Completed US gall bladder 7 [id number] Urgent Ultrasound 06/06/19 12:31 Completed Labs from last 24 hours 06/08/19 06/08/19 06/08/19 04:55 04:55 04:55 WBC 6.0 RBC 4.05 L Hgb 11.4 L Hct 35.6 L MCV 87.9 MCH 28.1 MCHC 32.0 RDW 13.2 Plt Count 240 MPV 11.3 H Neut % (Auto) 66.4 Lymph % (Auto) 21.9 [place] % (Auto) 7.5 Eos % (Auto) 3.5 Baso % (Auto) 0.5 Neut # (Auto) 4.0 Lymph # (Auto) 1.3 [place] # (Auto) 0.5 Eos # (Auto) 0.2 Baso # (Auto) 0.0 Nucleated RBC % (a uto) 0 Nucleated RBCs # 0.0 Sodium 143 Potassium 4.0 Chloride 107 Carbon Dioxide 25 Anion Gap 15.0 BUN 9 Creatinine 0.7 GFR Calculation 87.5 L Glucose 132 H Calcium 9.0 Total Bilirubin 0.7 AST 122 H ALT 314 H Alkaline Phosphata se 133 H Total Protein 6.0 L Albumin 3.7 Globulin 2.3 Triglycerides 132 Cholesterol 153 LDL Cholesterol, C alc 93 HDL Cholesterol 34 L LDL/HDL Ratio 2.74 Cholesterol/HDL Ra stacey 4.50 H Lipase 33 Vitals: Last Vital Signs Temp 98.5 F 06/08/19 15:29 Pulse 66 06/08/19 15:29 Resp 20 H 06/08/19 15:29 BP 129/79 06/08/19 15:29 Pulse Ox 100 06/08/19 15:29 TS Medications Medications Home Medications Vitamin B-12 2 tab PO DAILY 06/06/19 [History Confirmed 06/06/19] acetaminophen [Tylenol Extra Strength] 500 mg PO Q6H PRN 06/06/19 [History Confirmed 06/06/19] cholecalciferol (vitamin D3) [Vitamin D3] 125 mcg PO DAILY 06/06/19 [History Confirmed 06/06/19] Active Medications Enoxaparin Sodium (Lovenox) 40 mg SUBCUT Q24H [facility] Last Admin: 06/07/19 17:52 Dose: 40 mg Documented by: Famotidine (Pepcid Inj) 20 mg IVP Q12H [facility] Last Admin: 06/08/19 08:50 Dose: 20 mg Documented by: Hydromorphone HCl (Dilaudid Inj) 0.5 mg IVP Q6H PRN PRN Reason: PAIN Last Admin: 06/08/19 15:27 Dose: 0.5 mg Documented by: Dextrose/Sodium Chloride (Dextrose 5%-Sod Chloride 0.9%) 1,000 mls @ 75 mls/hr IV .[id number] [facility] Last Admin: 06/08/19 08:49 Dose: 75 mls/hr Documented by: Piperacillin Sod/Tazobactam (Sod 3.375 gm/ Sodium Chloride) 50 mls @ 12.5 mls/hr IV Q8H [facility] Last Admin: 06/08/19 13:49 Dose: 12.5 mls/hr Documented by: Ketorolac Tromethamine (Toradol) 30 mg IVP Q6H PRN PRN Reason: MODERATE PAIN Stop: 06/11/19 17:46 Last Admin: 06/08/19 02:42 Dose: 30 mg Documented by: Ondansetron HCl (Zofran) 4 mg IVP Q8H PRN PRN Reason: vomiting, or N/V if npo Last Admin: 06/08/19 06:03 Dose: 4 mg Documented by: Promethazine HCl (Phenergan) 12.5 mg IM Q6H PRN PRN Reason: NAUSEA Last Admin: 06/08/19 02:41 Dose: 12.5 mg Documented by: Scopolamine (Transderm-Scop) 1 patch TRANSDERMA Q3D [facility] Last Admin: 06/08/19 08:50 Dose: 1 patch Documented by: Discharge Plan Discharge Condition: Stable Prescriptions: No Action Tylenol Extra Strength 500 mg Tablet 500 mg PO Q6H PRN (Reason: Pain) RF: 0 Vitamin D3 125 mcg (5,000 unit) Tablet 125 mcg PO DAILY RF: 0 Vitamin B-12 2 tab PO DAILY RF: 0 Referrals: Lucille Black MD [Primary Care Provider] - Coding Level of Care Code Acute Engraver Hand Hard Metals for Chg Fwd Diagnoses Elevated LFTs R94.5 Abdominal pain R10.84 Abdominal location: generalized Cholelithiasis K80.20
[2019-06-08] MEDS: enoxaparin 40 mg/0.4 mL Syringe SUBCUT (19:29)
--- NOTE | 2019-06-08 23:29 | PC.NURSE ---
Received RM 3108 at [facility] on 3A from Bed Coordinator. The patient was agreeable to the transfer per the Physicians recommendations. Report Called to Adam BURGOS on 3A and SBAR style report given. All questions were answered. All required papers for transport were filled out and faxed to T. A tentative ETA (2am or 3am on 06/09/19) was provided by T dispatch. The Program Development Manager signed the required form for transfer. The patient's transfer paper work and patient's imaging CD were placed into a yellow file folder and labeled. Awaiting arrival of T.
[2019-06-09 04:00] VITALS: BP 111/66; PULSE 72; RESP 18; TEMP 36.6; O2SAT 94
[2019-06-09] MEDS: piperacillin-tazobactam 3.375 GM in sodium chloride 0.9% (plus) 50 ML IV (06:07)
[2019-06-09] MEDS: dextrose 5%-sod chloride 0.9% 1,000 ML 75 ML IV (06:12)
--- NOTE | 2019-06-09 07:09 | P.PN_ITS ---
Subjective Subjective: Interval history: Patient overall is stable, nausea is controlled by medication No acute events overnight MRCP was obtained and showed choledocholithiasis in the absence of clinically detected jaundice or hyperbilirubinemia, with a history of transverse colon colitis on admission on the CT scan, gave ambiguity to the overall clinical picture particularly that the patient did not have cholecystitis. I elected to conservatively manage the patient till she declares herself more and because her clinical picture did not improve much particularly with the persistent nausea, and in the presence of unclear objective data per her latest ultrasound that was ordered by the hospitalist service that showed suspected cholecystitis in the presence of a 2.8 mm gallbladder which did not match cholecystitis picture and in the absence of pericholecystic edema and fluid,we elected to proceed with an MRCP that showed nonobstructive choledocholithiasis and no that would explain part of the patient's symptoms in addition to the transverse colon colitis, I did international student counselor the patient that she would be an appropriate candidate for an ERCP and elective laparoscopic cholecystectomy and consider that she does have colitis she should be continued to be treated for that as well. Plan of care has been discussed with the patient and she did agree to proceed accordingly by transfer to a facility where ERCP is available to prevent potential ascending cholangitis. Vitals/I&O/Wt Last Vital Signs Temp 97.8 F 06/09/19 04:00 Pulse 72 06/09/19 04:00 Resp 18 06/09/19 04:00 BP 111/66 06/09/19 04:00 Pulse Ox 94 06/09/19 04:00 06/08/19 06/09/19 06/09/19 22:59 06:59 14:59 Intake Total 1050 / 2145 527.5 / 2672.5 Balance 1050 / 1445 527.5 / 1972.5 Physical Exam Const: COMMON NORMALS: no apparent distress and oriented x3 GENERAL APPEARANCE: cooperative ORIENTATION/CONSCIOUSNESS: Yes awake, Yes oriented to person, Yes oriented to place and Yes oriented to time Eye: COMMON NORMALS: PERRL and no scleral icterus PUPIL: Yes PERRL GI: COMMON NORMALS: soft to palpation; negative for no hepatosplenomegaly INSPECTION: Yes normal to inspection PALPATION: Yes soft, No firm, No tender, No guarding, No rigid and No no hepatosplenomegaly Neuro: COMMON NORMALS: oriented x3 SENSORIUM/ORIENTATION: Yes oriented to person, Yes oriented to place and Yes oriented to time Data : 06/08/19 04:55 06/08/19 04:55 A&P Assessment and plan (1) Cholelithiasis: Patient will benefit from laparoscopic cholecystectomy electively after ERCP is being done Status: Acute Code(s): K80.20 - Calculus of gallbladder without cholecystitis without obstruction (2) Enterocolitis: Continue antimicrobial therapy for 10 days Status: Acute Code(s): K52.9 - Noninfective gastroenteritis and colitis, unspecified (3) Abdominal pain: Likely due to transverse colon colitis and presence of nonobstructive CBD stones Patient will benefit from medical management of the colitis and ERCP to retrieve the stones with possible sphincterotomy and elective laparoscopic Status: Acute Qualifiers: Abdominal location: generalized Qualified Code(s): R10.84 - Generalized abdominal pain Code(s): R10.9 - Unspecified abdominal pain (4) Choledocholithiasis: Semiurgent ERCP to retrieve the stones and perform sphincterotomy with the plan to perform laparoscopic cholecystectomy electively. Am Happy to have the patient come back and follow-up with me as an outpatient for elective laparoscopic cholecystectomy Status: Acute Code(s): K80.50 - Calculus of bile duct without cholangitis or cholecystitis without obstruction Attestations Medical Necessity Statement*: Medical necessity care is expected to cross 2 midnights Time Spent in Patient Care: 16 - 35 minutes (>than 50% of time spent in counselling and/or direct pt care on unit) . Coding Level of Care Code Acute Primary School Teacher Librarian for [facility] Fwd Diagnoses Cholelithiasis K80.20 Enterocolitis K52.9 Abdominal pain R10.84 Abdominal location: generalized Choledocholithiasis K80.50
[2019-06-09 07:18] VITALS: BP 125/75; PULSE 62; RESP 20; TEMP 36.7; O2SAT 94
--- NOTE | 2019-06-09 08:13 | PC.NURSE ---
Transfer Summary Received RM 3108 at [facility] on 3A from Bed Coordinator. All required papers for transport were filled out and faxed to T. The Marble Cutter signed the required form for transfer. Pt's transfer paperwork and imaging CD were placed into a yellow file folder and given to transportation team. Pt given 0.5 mg dilaudid and 4 mg zofran prior to transfer. Vitals WNL. IV flushed and locked. Bedside report given to Mehran Monae, professor of biochemistry.
[2019-06-09 08:20] VITALS: BP 125/75; PULSE 62; RESP 20; TEMP 36.7; O2SAT 94
--- NOTE | 2019-06-09 10:04 | P.TS_ITS ---
Transfer Summary Providers Date of Admission: 06/06/19 16:05 Date of Discharge: 06/10/19 Attending Provider at Admission: Natalee Izaguirre MD Attending Provider at Transfer: Edward Wilkins MD Primary Care Provider: Lucille Black MD Anticipated Date of Transfer: Anticipated date of transfer: 06/10/19 Receiving Facility & Provider: Receiving Provider: [] Receiving facility: [[facility]] Diagnoses at Discharge Discharge Diagnosis (1) Cholelithiasis: Status: Acute (2) Enterocolitis: Status: Acute (3) Abdominal pain: Status: Acute Qualifiers: Abdominal location: generalized Qualified Code(s): R10.84 - Generalized abdominal pain (4) Choledocholithiasis: Status: Acute Reason for Visit Reason for Visit: Reason For Visit: abd pain/vomiting Hospital Course Discharge Summary: Felicia Weaver is a 54 year old female without significant comorbidities who presents with abdominal pain,, started 2 days LINE WALKER, sharp st abbing type, 10/10 mainly in the RUQ and epigatrsic region radiating to back along B/L sides. Made worse with movements and taking deep breath. Associated with nausea, vomiting and transient diarrhea lasting <24 hrs. She presented to ER on 06/04 with above complaints. At this time CT abdomen was negative for acute abnormalities. AST/ALT were mildly elevated. She was discharged with symptomatic rx. Over the next day pain has persisted, worsening in RUQ with deep breath, mostly 5/10 with intermittent increase to 10/10. Nausea and vomiting persist. Diarrhea has resolved Diagnostics on admission showed AST/ALT >500/600, lipase ~100, mildly elevated ALP. USG RUQ with numerous gallstones, but no evidence of cholecystitis. CT abdomen/pelvis without cholecytistis, no CBD dilatation. No fever or chills. no alcohol intake. Based on history of sudden onset abdominal pain, new transaminitis, mildly elevated lipase and ALP, tender RUQ overall suspect symptomatic cholelithiasis with likely passage of gallstones recently. LFTs were improving however still in 300s. Hepatitis panel negative for hep A/B/C. Remained afebrile and hemodynamically stable, however continued to be symptomatic with persistent nausea, inability to tolerate po intake and RUQ pain. Lopez's sign +. eventualy underwent MRCP yesterday which showed 2-3 mm stones in the CBD. Now being transferred to [facility] for ERCP. Physical Exam Narrative: EXAM NARRATIVE: Not examined today as patient left before my evaluation this morning TS Data Data Completed and Pending: Completed Studies During Hospitalization Category Date Time Status CT abdomen pelvis w con* [id number] Urge nt Cat Scan 06/06/19 12:31 Completed XR chest 1V jayro ble [id number] Urgent Exams 06/06/19 12:48 Completed MR MRCP [id number] Sta t MRI 06/08/19 16:03 Completed US abdomen limite d [id number] Routine Ultrasound 06/07/19 18:29 Completed US gall bladder 7 [id number] Urgent Ultrasound 06/06/19 12:31 Completed Vitals: Last Vital Signs Temp 98.0 F 06/09/19 08:20 Pulse 62 06/09/19 08:20 Resp 20 H 06/09/19 08:20 BP 125/75 06/09/19 08:20 Pulse Ox 94 06/09/19 08:20 TS Medications Medications Home Medications Vitamin B-12 2 tab PO DAILY 06/06/19 [History Confirmed 06/06/19] acetaminophen [Tylenol Extra Strength] 500 mg PO Q6H PRN 06/06/19 [History Confirmed 06/06/19] cholecalciferol (vitamin D3) [Vitamin D3] 125 mcg PO DAILY 06/06/19 [History Confirmed 06/06/19] Active Medications Enoxaparin Sodium (Lovenox) 40 mg SUBCUT Q24H [facility] Last Admin: 06/08/19 19:29 Dose: 40 mg Documented by: Famotidine (Pepcid Inj) 20 mg IVP Q12H [facility] Last Admin: 06/08/19 21:03 Dose: 20 mg Documented by: Hydromorphone HCl (Dilaudid Inj) 0.5 mg IVP Q6H PRN PRN Reason: PAIN Last Admin: 06/08/19 23:08 Dose: 0.5 mg Documented by: Dextrose/Sodium Chloride (Dextrose 5%-Sod Chloride 0.9%) 1,000 mls @ 75 mls/hr IV .[id number] [facility] Last Admin: 06/09/19 06:12 Dose: 75 mls/hr Documented by: Piperacillin Sod/Tazobactam (Sod 3.375 gm/ Sodium Chloride) 50 mls @ 12.5 mls/hr IV Q8H [facility] Last Admin: 06/09/19 06:07 Dose: 12.5 mls/hr Documented by: Ketorolac Tromethamine (Toradol) 30 mg IVP Q6H PRN PRN Reason: MODERATE PAIN Stop: 06/11/19 17:46 Last Admin: 06/08/19 21:03 Dose: 30 mg Documented by: Ondansetron HCl (Zofran) 4 mg IVP Q8H PRN PRN Reason: vomiting, or N/V if npo Last Admin: 06/08/19 23:08 Dose: 4 mg Documented by: Promethazine HCl (Phenergan) 12.5 mg IM Q6H PRN PRN Reason: NAUSEA Last Admin: 06/08/19 19:31 Dose: 12.5 mg Documented by: Scopolamine (Transderm-Scop) 1 patch TRANSDERMA Q3D [facility] Last Admin: 06/08/19 08:50 Dose: 1 patch Documented by: Discharge Plan Discharge Patient Disposition: Xfer Other Condition: Stable Prescriptions: No Action Tylenol Extra Strength 500 mg Tablet 500 mg PO Q6H PRN (Reason: Pain) RF: 0 Vitamin D3 125 mcg (5,000 unit) Tablet 125 mcg PO DAILY RF: 0 Vitamin B-12 2 tab PO DAILY RF: 0 Discharge Orders: Transfer Out of Facility (Order); Ordered 06/09/19 Ordered By: Edward Wilkins Referrals: Lucille Black MD [Primary Care Provider] - Discharge Date/Time: 06/09/19 07:30 Transfer Attestations Time Spent in Transfer Care*: less than 30 min Quality Metrics Clinical Quality Measures: During this hospital stay, did patient experience: None Coding Level of Care Code Acute Educational Paraprofessional for Chg Fwd Diagnoses Cholelithiasis K80.20 Enterocolitis K52.9 Abdominal pain R10.84 Abdominal location: generalized Choledocholithiasis K80.50
== END 2019-06-09 07:30 | disposition short-term general hospital (02) | DRG 446 ==
LOC: ER 15:42 → MEDSURG 17:17
PROVIDERS: Physician Assistant; Surgery; Admitting Provider Student in an Organized Health Care Education/Training Program; Emergency Provider Family Medicine; PCP Family Medicine; Visit Provider Student in an Organized Health Care Education/Training Program
DX: K80.70 Calculus of gallbladder and bile duct without cholecystitis without obstruction (principal); K52.9 Noninfective gastroenteritis and colitis, unspecified
CPT/HCPCS: 12345; 36415; 71045; 74177; 74181; 76705; 80053; 80061; 80074; 81003; 83690; 84484; 84703; 85025; 85651; 86140; 86706; 93005; 96372; 96375; 99283; A9270; J0744; J1170; J1650; J1885; J2270; J2405; J2543; J2550; J2765; J3490; J7030; J7040; Q9967; S0030

== ENCOUNTER 2019-06-21 00:44 | Observation (INO) | payer SELFPAY ==
[2019-06-21] VITALS (24 sets, daily range): BP systolic 100–135; BP diastolic 64–90; PULSE 73–112; RESP 12–20; TEMP 36.3–37.2; O2SAT 93–99; BMI 32.6
--- NOTE | 2019-06-21 00:47 | ED_ITS ---
Entered by Nilsa Keen, acting as scribe for Documented by User: Sirena Morejon 06/21/19 06:10 HPI - Abdominal Pain General: Chief Complaint: Abdominal Pain Stated Complaint: possible sepsis Time Seen by Provider: 06/21/19 00:48 Source: patient and EMS Mode of arrival: EMS History of Present Illness: HPI narrative: 54 y/o female presents to the ED with complaint of RUQ pain. Pt states she has had fever ( 101.4), N/V/D, and chills for the past 2 days. Pt was recently admitted here for 2 days and then transferred to [facility] for gallbladder removal. Pt was at [facility] for 5 days ( 06/08-06/13) and was released home 06/13. EMS reports the incision site did not look red or infected but she was tachycardic and tachypnic upon their arrival. MD elicited complaint: abdominal pain Pertinent past history: other (hx gallstones, recent gallbladder removal) Onset (ago): day(s) Pain Consistency: constant Location: RUQ Severity: moderate Relieving factors: nothing Context: recent antibiotic use and recent surgery/procedure Associated Symptoms: Reports other (See HPI); Denies dysuria, hematuria and syncope Review of Systems General: Reports: other (negative unless marked) Eyes: Denies: change in vision or blurry vision ENMT: Denies: throat pain, painful swallowing, hoarseness, ear pain, ear discharge, Change in hearing or nasal discharge Card: Denies: chest pain, palpitations, irregular heart rhythm, syncope, pre- syncope, shortness of breath on exertion or shortness of breath when lying down Resp: Denies: shortness of breath, productive cough, non-productive cough, wheezing, coughing up blood or chest congestion GI: Reports: other (See HPI) : Denies: flank pain, painful urination, urinary frequency, urinary urgency, decreased urine ouput, urinary incontinence or blood in urine Musc: Denies: neck pain, back pain, extremity pain, extremity swelling, joint pain, joint swelling, joint warmth or joint stiffness Skin/Breast: Denies: rash, skin tenderness or yellow skin Neuro: Denies: headache, numbness in extremities, weakness in extremities, changes in sensation, lack of coordination, difficulty walking, dizziness, vertigo or confusion Endo: Denies: excessive thirst, tired all the time, cold intolerance, excessive sweating, flushing or hot flashes Quan/Lymph: Denies: easy bruising, easy bleeding, petechiae or enlarged lymph nodes All/Imm: Denies: hives, throat swelling, tongue swelling, facial swelling or acute wheezing PFSH ED PFSH: Medical History B12 deficiency Surgical History History of appendectomy Status post cholecystectomy Social History Smoking and tobacco status: former smoker Alcohol intake: never Substance/Drug Use: never Physical Exam Const: EXAM LIMITATIONS: no altered mental status GENERAL APPEARANCE: cooperative, well kempt and well developed ORIENTATION/CONSCIOUSNESS: Yes awake HENMT: COMMON NORMALS: normocephalic, head/scalp atraumatic, hearing grossly normal bilaterally, external ears normal, EAC's normal, external nose normal and moist oral mucous membranes HEAD & SCALP: normal to inspection, normocephalic and atraumatic FACE & SINUS: normal facial exam and face symmetric NOSE: external nose normal and nares normal EXTERNAL EAR: Yes external ears normal EXTERNAL AUDITORY CANAL: EAC's normal MOUTH: oral and palatal mucosa normal and tongue normal Eye: COMMON NORMALS: PERRL, EOMs intact bilaterally, conjunctivae normal and no scleral icterus GENERAL EYE: normal appearance of both eyes and normal light reflex CONJUNCTIVA: Yes conjunctivae normal SCLERA: sclerae normal CORNEA: Yes corneas normal PUPIL: Yes PERRL DIRECT OPHTHALMOSCOPY: Yes normal light reflex Neck/C-Spine: COMMON NORMALS: full ROM, no lymphadenopathy, supple, no meningeal signs and no JVD GENERAL: Yes normal visual inspection and Yes trachea midline CERVICAL SPINE: Yes cervical ROM normal Chest: COMMONS NORMALS: inspection of chest normal and palpation of chest normal Resp: COMMON NORMALS: normal respiratory effort, no retractions, no use of accessory muscles and clear to auscultation bilaterally EFFORT & INSPECTION: Yes able to speak in complete sentences AUSCULTATION: clear to auscultation bilaterally Cardio: COMMON NORMALS: no JVD, regular rate, regular rhythm, S1 normal heart sound, S2 normal heart sound, no gallops, no clicks, no murmurs and no rub JUGULAR VENOUS DISTENTION: no JVD RATE: regular rate RHYTHM: regular rhythm HEART SOUNDS: S1 normal and S2 normal GI: COMMON NORMALS: soft to palpation and no hepatosplenomegaly AUSCULTATION: Yes normoactive bowel sounds PALPATION: Yes soft, Yes tender Details: RLQ and RUQ, No guarding, No rigid, Yes no hepatosplenomegaly and No pulsatile mass : COMMON NORMALS: Yes no CVA tenderness BLADDER/KIDNEY EXAM: Yes no CVA tenderness Back/Pelvis: COMMON NORMALS: no CVA tenderness, thoracic and lumbar spine normal to inspection, no thoracic nor lumbar tenderness and thoraco-lumbar ROM normal Extremity: COMMON NORMALS: normal to inspection, full ROM, normal capillary refill, no joint enlargement, no clubbing, cyanosis or edema and no calf tenderness Neuro: COMMON NORMALS: CN's II-XII intact bilaterally, moves all extremities, no focal motor deficits and no sensory deficits noted MENINGEAL SIGNS: Yes no meningeal signs Psych: COMMON NORMALS: mental status grossly normal, thought process normal, cooperative, affect normal, speech normal and activity/motor behavior normal APPEARANCE: Yes well kempt SPEECH: Yes normal speech THOUGHT PROCESS: normal thought process Skin: COMMON NORMALS: no rashes or lesions noted, skin turgor normal, no jaundice, no petechiae and no mottling GENERAL SKIN EXAM: no rashes or lesions noted and turgor normal Course ED course: 0106 - faxed Medical records request to [facility] for most recent visit (06/08-06/13) 0300 - called [facility] and left message for [employer] to send medical records 0324 - Awaiting phone consult with [facility] gastroenterology 0334 - Discussed case with Dr. Senior. Vital Signs: Vital signs: Vital Signs Temperature 98.7 F 06/23/19 15:00 Pulse Rate 78 06/23/19 15:00 Respiratory Rate 18 06/23/19 15:00 Blood Pressure 118/80 06/23/19 15:00 Pulse Oximetry 97 06/23/19 15:00 MDM - Abdominal Pain MDM Narrative: Medical decision making narrative: 399 -case was reviewed with Dr. Aquino. The patient comes in with right upper quadrant and epigastric pain with intractable vomiting. She states this was going on for 3 days and she has had a fever. Her CT scan is unremarkable and her ultrasound shows nothing acute in the common bile duct. There was question whether the ultrasound showed that her pancreas was inflamed. Pancreatic inflammation was not confirmed by CT. The patient though continues to be in severe pain and have intractable vomiting. Dr. Aquino thought that MRCP would be the next best course of action. I reviewed the case with Dr. Weaver, on-call for GI at [facility] and he agreed as well that MRCP would be the next appropriate step and then if necessary a HIDA scan to check for biliary leak although with no sign of this on CT scan or ultrasound he thought this was unlikely. I reviewed this plan with the patient and she is in agreement to move ahead. Lab Data: Labs: Lab Results 06/21/19 06/21/19 06/21/19 Range/Units 01:00 01:00 01:00 WBC 11.8 H (4.0-10.0) 10^3/ uL RBC 5.23 (4.1-5.3) 10^6/u L Hgb 14.5 (11.5-15.3) g/dL Hct 44.1 (37.0-47.0) % MCV 84.3 (81-99) fL MCH 27.7 L (28.0-34.0) pg MCHC 32.9 (30.0-36.0) g/dL RDW 12.9 (12.1-15.1) % Plt Count 382 (130-400) 10^3/c mm MPV 10.1 (7.4-10.4) fL Neut % (Auto) 81.7 % Lymph % (Auto) 11.0 % [place] % (Auto) 5.7 % Eos % (Auto) 0.9 % Baso % (Auto) 0.4 % Neut # (Auto) 9.6 H (1.8-7.7) 10^3/u L Lymph # (Auto) 1.3 (0.8-4.8) 10^3/u L [place] # (Auto) 0.7 (0.2-0.9) 10^3/u L Eos # (Auto) 0.1 (0.0-0.8) 10^3/u L Baso # (Auto) 0.1 (0.0-0.1) 10^3/u L Nucleated RBC % (a uto) 0 % Nucleated RBCs # 0.0 /100WBC PT (10.5-13.3) SECO NDS INR (0.8-1.2) Sodium 138 (136-145) mmol/L Potassium 3.8 (3.5-5.1) mmol/L Chloride 100 (98-107) mmol/L Carbon Dioxide 23 (22-29) mmol/L Anion Gap 18.8 (5-19) BUN 7 (6-20) mg/dL Creatinine 0.7 (0.5-0.9) mg/dL GFR Calculation 87.5 L (90-130) mL/min Glucose 132 H (65-115) mg/dL Lactic Acid 2.3 H (0.5-2.2) mmol/L Lactic Acid (Sepsi s) (0.5-2.2) mmol/L Calcium 10.6 H (8.5-10.5) mg/dL Magnesium 1.8 (1.7-2.3) mg/dL Total Bilirubin 0.8 (0.15-1.2) mg/dL AST 19 (0-32) U/L ALT 26 (0-33) U/L Alkaline Phosphata se 102 (35-105) IU/L Troponin I 6 Hour (0-10) ng/mL Troponin I Hi Sens Del (0-12) ng/L Troponin T Baselin e (0-10) ng/mL Troponin T 120 Min [place] (0-10) ng/mL Delta Troponin T (0-10) ABS# Total Protein 7.6 (6.6-8.7) g/dL Albumin 4.1 (3.5-5.2) g/dL Globulin 3.5 (1.3-4.6) g/dL Lipase 14 (13-60) U/L HCG, Qual (Negative) Urine Color (Yellow) Urine Appearance (CLEAR) Urine pH (5-7) Ur Specific Gravit y (1.005-1.030) Urine Protein (Negative) Urine Glucose (UA) (Normal) Urine Ketones (Negative) Urine Blood (Negative) Urine Nitrate (Negative) Urine Bilirubin (NEGATIVE) Urine Urobilinogen (Negative) mg/dL Ur Leukocyte Niurka ase (Negative) Ethyl Alcohol < 10 (0-10) mg/dL 06/21/19 06/21/19 06/21/19 Range/Units 01:00 01:00 02:35 WBC (4.0-10.0) 10^3/ uL RBC (4.1-5.3) 10^6/u L Hgb (11.5-15.3) g/dL Hct (37.0-47.0) % MCV (81-99) fL MCH (28.0-34.0) pg MCHC (30.0-36.0) g/dL RDW (12.1-15.1) % Plt Count (130-400) 10^3/c mm MPV (7.4-10.4) fL Neut % (Auto) % Lymph % (Auto) % [place] % (Auto) % Eos % (Auto) % Baso % (Auto) % Neut # (Auto) (1.8-7.7) 10^3/u L Lymph # (Auto) (0.8-4.8) 10^3/u L [place] # (Auto) (0.2-0.9) 10^3/u L Eos # (Auto) (0.0-0.8) 10^3/u L Baso # (Auto) (0.0-0.1) 10^3/u L Nucleated RBC % (a uto) % Nucleated RBCs # /100WBC PT 14.10 H (10.5-13.3) SECO NDS INR 1.06 (0.8-1.2) Sodium (136-145) mmol/L Potassium (3.5-5.1) mmol/L Chloride (98-107) mmol/L Carbon Dioxide (22-29) mmol/L Anion Gap (5-19) BUN (6-20) mg/dL Creatinine (0.5-0.9) mg/dL GFR Calculation (90-130) mL/min Glucose (65-115) mg/dL Lactic Acid (0.5-2.2) mmol/L Lactic Acid (Sepsi s) (0.5-2.2) mmol/L Calcium (8.5-10.5) mg/dL Magnesium (1.7-2.3) mg/dL Total Bilirubin (0.15-1.2) mg/dL AST (0-32) U/L ALT (0-33) U/L Alkaline Phosphata se (35-105) IU/L Troponin I 6 Hour (0-10) ng/mL Troponin I Hi Sens Del (0-12) ng/L Troponin T Baselin e (0-10) ng/mL Troponin T 120 Min [place] (0-10) ng/mL Delta Troponin T (0-10) ABS# Total Protein (6.6-8.7) g/dL Albumin (3.5-5.2) g/dL Globulin (1.3-4.6) g/dL Lipase (13-60) U/L HCG, Qual Negative (Negative) Urine Color Yellow (Yellow) Urine Appearance Clear (CLEAR) Urine pH 9 H (5-7) Ur Specific Gravit y 1.015 (1.005-1.030) Urine Protein Neg (Negative) Urine Glucose (UA) Norm (Normal) Urine Ketones 1+ H (Negative) Urine Blood Neg (Negative) Urine Nitrate Negative (Negative) Urine Bilirubin Neg (NEGATIVE) Urine Urobilinogen Norm (Negative) mg/dL Ur Leukocyte Niurka ase Negative (Negative) Ethyl Alcohol (0-10) mg/dL 06/21/19 06/21/19 06/21/19 Range/Units 03:45 03:45 06:05 WBC (4.0-10.0) 10^3/ uL RBC (4.1-5.3) 10^6/u L Hgb (11.5-15.3) g/dL Hct (37.0-47.0) % MCV (81-99) fL MCH (28.0-34.0) pg MCHC (30.0-36.0) g/dL RDW (12.1-15.1) % Plt Count (130-400) 10^3/c mm MPV (7.4-10.4) fL Neut % (Auto) % Lymph % (Auto) % [place] % (Auto) % Eos % (Auto) % Baso % (Auto) % Neut # (Auto) (1.8-7.7) 10^3/u L Lymph # (Auto) (0.8-4.8) 10^3/u L [place] # (Auto) (0.2-0.9) 10^3/u L Eos # (Auto) (0.0-0.8) 10^3/u L Baso # (Auto) (0.0-0.1) 10^3/u L Nucleated RBC % (a uto) % Nucleated RBCs # /100WBC PT (10.5-13.3) SECO NDS INR (0.8-1.2) Sodium (136-145) mmol/L Potassium (3.5-5.1) mmol/L Chloride (98-107) mmol/L Carbon Dioxide (22-29) mmol/L Anion Gap (5-19) BUN (6-20) mg/dL Creatinine (0.5-0.9) mg/dL GFR Calculation (90-130) mL/min Glucose (65-115) mg/dL Lactic Acid (0.5-2.2) mmol/L Lactic Acid (Sepsi s) 1.4 (0.5-2.2) mmol/L Calcium (8.5-10.5) mg/dL Magnesium (1.7-2.3) mg/dL Total Bilirubin (0.15-1.2) mg/dL AST (0-32) U/L ALT (0-33) U/L Alkaline Phosphata se (35-105) IU/L Troponin I 6 Hour (0-10) ng/mL Troponin I Hi Sens Del (0-12) ng/L Troponin T Baselin e 6 (0-10) ng/mL Troponin T 120 Min [place] 6.00 (0-10) ng/mL Delta Troponin T 0 (0-10) ABS# Total Protein (6.6-8.7) g/dL Albumin (3.5-5.2) g/dL Globulin (1.3-4.6) g/dL Lipase (13-60) U/L HCG, Qual (Negative) Urine Color (Yellow) Urine Appearance (CLEAR) Urine pH (5-7) Ur Specific Gravit y (1.005-1.030) Urine Protein (Negative) Urine Glucose (UA) (Normal) Urine Ketones (Negative) Urine Blood (Negative) Urine Nitrate (Negative) Urine Bilirubin (NEGATIVE) Urine Urobilinogen (Negative) mg/dL Ur Leukocyte Niurka ase (Negative) Ethyl Alcohol (0-10) mg/dL 02/28/20 02/28/20 Range/Units 08:03 09:43 WBC (4.0-10.0) 10^3/ uL RBC (4.1-5.3) 10^6/u L Hgb (11.5-15.3) g/dL Hct (37.0-47.0) % MCV (81-99) fL MCH (28.0-34.0) pg MCHC (30.0-36.0) g/dL RDW (12.1-15.1) % Plt Count (130-400) 10^3/c mm MPV (7.4-10.4) fL Neut % (Auto) % Lymph % (Auto) % [place] % (Auto) % Eos % (Auto) % Baso % (Auto) % Neut # (Auto) (1.8-7.7) 10^3/u L Lymph # (Auto) (0.8-4.8) 10^3/u L [place] # (Auto) (0.2-0.9) 10^3/u L Eos # (Auto) (0.0-0.8) 10^3/u L Baso # (Auto) (0.0-0.1) 10^3/u L Nucleated RBC % (a uto) % Nucleated RBCs # /100WBC PT (10.5-13.3) SECO NDS INR (0.8-1.2) Sodium 136 (136-145) mmol/L Potassium 3.9 (3.5-5.1) mmol/L Chloride 101 (98-107) mmol/L Carbon Dioxide 23 (22-29) mmol/L Anion Gap 15.9 (5-19) BUN 7 (6-20) mg/dL Creatinine 0.6 (0.5-0.9) mg/dL GFR Calculation 104.6 (90-130) mL/min Glucose 161 H (65-115) mg/dL Lactic Acid (0.5-2.2) mmol/L Lactic Acid (Sepsi s) (0.5-2.2) mmol/L Calcium 9.1 (8.5-10.5) mg/dL Magnesium (1.7-2.3) mg/dL Total Bilirubin 0.5 (0.15-1.2) mg/dL AST 21 (0-32) U/L ALT 25 (0-33) U/L Alkaline Phosphata se 97 (35-105) IU/L Troponin I 6 Hour 6.00 (0-10) ng/mL Troponin I Hi Sens Del 0 (0-12) ng/L Troponin T Baselin e (0-10) ng/mL Troponin T 120 Min [place] (0-10) ng/mL Delta Troponin T (0-10) ABS# Total Protein 6.7 (6.6-8.7) g/dL Albumin 4.1 (3.5-5.2) g/dL Globulin 2.6 (1.3-4.6) g/dL Lipase 10 L (13-60) U/L HCG, Qual (Negative) Urine Color (Yellow) Urine Appearance (CLEAR) Urine pH (5-7) Ur Specific Gravit y (1.005-1.030) Urine Protein (Negative) Urine Glucose (UA) (Normal) Urine Ketones (Negative) Urine Blood (Negative) Urine Nitrate (Negative) Urine Bilirubin (NEGATIVE) Urine Urobilinogen (Negative) mg/dL Ur Leukocyte Niurka ase (Negative) Ethyl Alcohol (0-10) mg/dL Imaging Data ^: CT Abd/Pel: Radiologist's impression: [place] [address] CT Scan Report Signed Patient: Felicia Weaver #: [id number] : 1965Acct#:[id number] Age/Sex: 54 / FADM Date: 06/21/19 Loc: ERRoom/Bed: Attending Dr: Ordering Provider/Ordering MD: Sirena Morejon DO Date of Service: 06/21/19 Procedure(s): CT abdomen pelvis w con* [id number] Accession Number(s): [id number] Report Number: [id number] PROCEDURE INFORMATION: Exam: CT Abdomen And Pelvis With Contrast Exam date and time: 06/21/2019 12:51 AM Age: 54 years old Clinical indication: Abdominal pain; Generalized; Prior surgery; Surgery date: <1 month; Surgery type: Cholecystectomy, HX appendectomy TECHNIQUE: Imaging protocol: Computed tomography of the abdomen and pelvis with intravenous contrast. Total DLP: 1444.53 mGy-cm Radiation optimization: All CT scans at this facility use at least one of these dose optimization techniques: automated exposure control; mA and/or kV adjustment per patient size (includes targeted exams where dose is matched to clinical indication); or iterative reconstruction. Contrast material: OMNI 300; Contrast volume: 95 ml; Contrast route: 22G; COMPARISON: CT abdomen pelvis w con* [id number] 06/06/2019 1:36 PM FINDINGS: Lungs: Lung bases are clear. Liver: The liver is normal. Gallbladder and bile ducts: The gallbladder is absent. There is no intrahepatic or extrahepatic bile duct dilation. No fluid in the gallbladder fossa. Pancreas: The pancreas is unremarkable. Spleen: Splenic size is normal. There are scattered calcifications consistent with healed granulomas. Adrenals: The adrenal glands are unremarkable. Kidneys and ureters: The kidneys are unremarkable. No hydronephrosis or stones. No ureteral dilation. Stomach and bowel: The stomach is unremarkable. The small bowel is nondilated. There is no sign of inflammation. The colon is diffusely decompressed. There is moderate pancolonic diverticulosis without evidence of diverticulitis. Appendix: The appendix is absent. Intraperitoneal space: There is no free air or significant intraperitoneal free fluid. Vasculature: The abdominal aorta is normal. There is no aneurysm or dissection. Lymph nodes: There is no lymphadenopathy in the retroperitoneum, mesentery, pelvis or inguinal regions. Bladder: The urinary bladder is unremarkable. Reproductive: The uterus is unremarkable. There is no adnexal mass or large cyst. Bones/joints: There is mild degenerative disease in the lumbar spine. The pelvis and hips are unremarkable. Soft tissues: The abdominal wall is intact. Focal subcutaneous edema in the right upper quadrant abdominal wall likely related to recent laparoscopic surgery. CT/CT abdomen pelvis w con* [id number] IMPRESSION: 1. No acute findings. 2. Incidental findings above. Radiation Dose CTDIVOL = (mGy): DLP = 1444.53 (mGy-cm) CXR: My impression: No acute cardiopulmonary findings. US: Radiologist's impression: Ultrasound right upper quadrant, technologist interpretation -common bile duct normal size. Questionable pancreatic inflammation. EKG Data ^: EKG 1: Attestation: I personally reviewed and interpreted this EKG as follows: EKG interpretation date: 06/21/19 EKG interpretation time: 01:35 Interpretation: 7 366 beats a minute, incomplete right bundle branch block, nonspecific ST and T wave changes. EKG 2: Attestation: I personally reviewed and interpreted this EKG as follows: EKG interpretation date: 06/21/19 EKG interpretation time: 03:49 Interpretation: Normal sinus rhythm at 85 beats a minute, incomplete right bundle branch block, nonspecific ST and T wave changes. Discharge Plan Discharge Patient Disposition: Admitted As Inpatient Admit Provider: Oscar Mcmanus Clinical Impression: Post-cholecystectomy syndrome, Dehydration Condition: Stable Discharge Orders: Discharge Order (Routine); Ordered 06/23/19 Ordered By: Oscar Mcmanus Discharge Diet: Advance as tolerated Discharge Activity: Resume usual activity Interventions: ED Discharge Assessment Last Done: 06/21/19 13:26 Discharge Date/Time: 06/21/19 14:15 Sign Out Sign Out Data: Patient Sign Out occurred on 06/21/19 at 07:08. Patient's care was discussed, and care was transferred from Sirena Morejon to Shin Dorado DO. Sign Out Comment: Case turned over to Dr. Dorado at change of shift. Last updated by Sirena Morejon at 06/21/19 05:33 Coding Level of Care Code ED Project Leader for Chg Fwd Exam Comprehensive Documented by User: Shin Dorado DO 06/25/19 16:11 HPI - Abdominal Pain General: Chief Complaint: Abdominal Pain Stated Complaint: possible sepsis Time Seen by Provider: 06/21/19 00:48 [facility] PFSH: Medical History B12 deficiency Surgical History History of appendectomy Status post cholecystectomy Social History Smoking and tobacco status: former smoker Alcohol intake: never Substance/Drug Use: never Course ED course: Care assumed a change of shift from Dr. Gm. MRCP is negative. patient is still having significant nausea and vomiting. We will go ahead and put patient on observation for IV fluid support antiemetics pain control surgical consult if pain persists. Discussed Dr. Mcmanus Vital Signs: Vital signs: Vital Signs Temperature 98.7 F 06/23/19 15:00 Pulse Rate 78 06/23/19 15:00 Respiratory Rate 18 06/23/19 15:00 Blood Pressure 118/80 06/23/19 15:00 Pulse Oximetry 97 06/23/19 15:00 MDM - Abdominal Pain Lab Data: Labs: Lab Results 06/21/19 06/21/19 06/21/19 Range/Units 01:00 01:00 01:00 WBC 11.8 H (4.0-10.0) 10^3/ uL RBC 5.23 (4.1-5.3) 10^6/u L Hgb 14.5 (11.5-15.3) g/dL Hct 44.1 (37.0-47.0) % MCV 84.3 (81-99) fL MCH 27.7 L (28.0-34.0) pg MCHC 32.9 (30.0-36.0) g/dL RDW 12.9 (12.1-15.1) % Plt Count 382 (130-400) 10^3/c mm MPV 10.1 (7.4-10.4) fL Neut % (Auto) 81.7 % Lymph % (Auto) 11.0 % [place] % (Auto) 5.7 % Eos % (Auto) 0.9 % Baso % (Auto) 0.4 % Neut # (Auto) 9.6 H (1.8-7.7) 10^3/u L Lymph # (Auto) 1.3 (0.8-4.8) 10^3/u L [place] # (Auto) 0.7 (0.2-0.9) 10^3/u L Eos # (Auto) 0.1 (0.0-0.8) 10^3/u L Baso # (Auto) 0.1 (0.0-0.1) 10^3/u L Nucleated RBC % (a uto) 0 % Nucleated RBCs # 0.0 /100WBC PT (10.5-13.3) SECO NDS INR (0.8-1.2) Sodium 138 (136-145) mmol/L Potassium 3.8 (3.5-5.1) mmol/L Chloride 100 (98-107) mmol/L Carbon Dioxide 23 (22-29) mmol/L Anion Gap 18.8 (5-19) BUN 7 (6-20) mg/dL Creatinine 0.7 (0.5-0.9) mg/dL GFR Calculation 87.5 L (90-130) mL/min Glucose 132 H (65-115) mg/dL Lactic Acid 2.3 H (0.5-2.2) mmol/L Lactic Acid (Sepsi s) (0.5-2.2) mmol/L Calcium 10.6 H (8.5-10.5) mg/dL Magnesium 1.8 (1.7-2.3) mg/dL Total Bilirubin 0.8 (0.15-1.2) mg/dL AST 19 (0-32) U/L ALT 26 (0-33) U/L Alkaline Phosphata se 102 (35-105) IU/L Troponin I 6 Hour (0-10) ng/mL Troponin I Hi Sens Del (0-12) ng/L Troponin T Baselin e (0-10) ng/mL Troponin T 120 Min [place] (0-10) ng/mL Delta Troponin T (0-10) ABS# Total Protein 7.6 (6.6-8.7) g/dL Albumin 4.1 (3.5-5.2) g/dL Globulin 3.5 (1.3-4.6) g/dL Lipase 14 (13-60) U/L HCG, Qual (Negative) Urine Color (Yellow) Urine Appearance (CLEAR) Urine pH (5-7) Ur Specific Gravit y (1.005-1.030) Urine Protein (Negative) Urine Glucose (UA) (Normal) Urine Ketones (Negative) Urine Blood (Negative) Urine Nitrate (Negative) Urine Bilirubin (NEGATIVE) Urine Urobilinogen (Negative) mg/dL Ur Leukocyte Niurka ase (Negative) Ethyl Alcohol < 10 (0-10) mg/dL 06/21/19 06/21/19 06/21/19 Range/Units 01:00 01:00 02:35 WBC (4.0-10.0) 10^3/ uL RBC (4.1-5.3) 10^6/u L Hgb (11.5-15.3) g/dL Hct (37.0-47.0) % MCV (81-99) fL MCH (28.0-34.0) pg MCHC (30.0-36.0) g/dL RDW (12.1-15.1) % Plt Count (130-400) 10^3/c mm MPV (7.4-10.4) fL Neut % (Auto) % Lymph % (Auto) % [place] % (Auto) % Eos % (Auto) % Baso % (Auto) % Neut # (Auto) (1.8-7.7) 10^3/u L Lymph # (Auto) (0.8-4.8) 10^3/u L [place] # (Auto) (0.2-0.9) 10^3/u L Eos # (Auto) (0.0-0.8) 10^3/u L Baso # (Auto) (0.0-0.1) 10^3/u L Nucleated RBC % (a uto) % Nucleated RBCs # /100WBC PT 14.10 H (10.5-13.3) SECO NDS INR 1.06 (0.8-1.2) Sodium (136-145) mmol/L Potassium (3.5-5.1) mmol/L Chloride (98-107) mmol/L Carbon Dioxide (22-29) mmol/L Anion Gap (5-19) BUN (6-20) mg/dL Creatinine (0.5-0.9) mg/dL GFR Calculation (90-130) mL/min Glucose (65-115) mg/dL Lactic Acid (0.5-2.2) mmol/L Lactic Acid (Sepsi s) (0.5-2.2) mmol/L Calcium (8.5-10.5) mg/dL Magnesium (1.7-2.3) mg/dL Total Bilirubin (0.15-1.2) mg/dL AST (0-32) U/L ALT (0-33) U/L Alkaline Phosphata se (35-105) IU/L Troponin I 6 Hour (0-10) ng/mL Troponin I Hi Sens Del (0-12) ng/L Troponin T Baselin e (0-10) ng/mL Troponin T 120 Min [place] (0-10) ng/mL Delta Troponin T (0-10) ABS# Total Protein (6.6-8.7) g/dL Albumin (3.5-5.2) g/dL Globulin (1.3-4.6) g/dL Lipase (13-60) U/L HCG, Qual Negative (Negative) Urine Color Yellow (Yellow) Urine Appearance Clear (CLEAR) Urine pH 9 H (5-7) Ur Specific Gravit y 1.015 (1.005-1.030) Urine Protein Neg (Negative) Urine Glucose (UA) Norm (Normal) Urine Ketones 1+ H (Negative) Urine Blood Neg (Negative) Urine Nitrate Negative (Negative) Urine Bilirubin Neg (NEGATIVE) Urine Urobilinogen Norm (Negative) mg/dL Ur Leukocyte [place] ase Negative (Negative) Ethyl Alcohol (0-10) mg/dL 06/21/19 06/21/19 06/21/19 Range/Units 03:45 03:45 06:05 WBC (4.0-10.0) 10^3/ uL RBC (4.1-5.3) 10^6/u L Hgb (11.5-15.3) g/dL Hct (37.0-47.0) % MCV (81-99) fL MCH (28.0-34.0) pg MCHC (30.0-36.0) g/dL RDW (12.1-15.1) % Plt Count (130-400) 10^3/c mm MPV (7.4-10.4) fL Neut % (Auto) % Lymph % (Auto) % [place] % (Auto) % Eos % (Auto) % Baso % (Auto) % Neut # (Auto) (1.8-7.7) 10^3/u L Lymph # (Auto) (0.8-4.8) 10^3/u L [place] # (Auto) (0.2-0.9) 10^3/u L Eos # (Auto) (0.0-0.8) 10^3/u L Baso # (Auto) (0.0-0.1) 10^3/u L Nucleated RBC % (a uto) % Nucleated RBCs # /100WBC PT (10.5-13.3) SECO NDS INR (0.8-1.2) Sodium (136-145) mmol/L Potassium (3.5-5.1) mmol/L Chloride (98-107) mmol/L Carbon Dioxide (22-29) mmol/L Anion Gap (5-19) BUN (6-20) mg/dL Creatinine (0.5-0.9) mg/dL GFR Calculation (90-130) mL/min Glucose (65-115) mg/dL Lactic Acid (0.5-2.2) mmol/L Lactic Acid (Sepsi s) 1.4 (0.5-2.2) mmol/L Calcium (8.5-10.5) mg/dL Magnesium (1.7-2.3) mg/dL Total Bilirubin (0.15-1.2) mg/dL AST (0-32) U/L ALT (0-33) U/L Alkaline Phosphata se (35-105) IU/L Troponin I 6 Hour (0-10) ng/mL Troponin I Hi Sens Del (0-12) ng/L Troponin T Baselin e 6 (0-10) ng/mL Troponin T 120 Min [place] 6.00 (0-10) ng/mL Delta Troponin T 0 (0-10) ABS# Total Protein (6.6-8.7) g/dL Albumin (3.5-5.2) g/dL Globulin (1.3-4.6) g/dL Lipase (13-60) U/L HCG, Qual (Negative) Urine Color (Yellow) Urine Appearance (CLEAR) Urine pH (5-7) Ur Specific Gravit y (1.005-1.030) Urine Protein (Negative) Urine Glucose (UA) (Normal) Urine Ketones (Negative) Urine Blood (Negative) Urine Nitrate (Negative) Urine Bilirubin (NEGATIVE) Urine Urobilinogen (Negative) mg/dL Ur Leukocyte Niurka ase (Negative) Ethyl Alcohol (0-10) mg/dL 06/21/19 06/21/19 Range/Units 08:03 09:43 WBC (4.0-10.0) 10^3/ uL RBC (4.1-5.3) 10^6/u L Hgb (11.5-15.3) g/dL Hct (37.0-47.0) % MCV (81-99) fL MCH (28.0-34.0) pg MCHC (30.0-36.0) g/dL RDW (12.1-15.1) % Plt Count (130-400) 10^3/c mm MPV (7.4-10.4) fL Neut % (Auto) % Lymph % (Auto) % [place] % (Auto) % Eos % (Auto) % Baso % (Auto) % Neut # (Auto) (1.8-7.7) 10^3/u L Lymph # (Auto) (0.8-4.8) 10^3/u L [place] # (Auto) (0.2-0.9) 10^3/u L Eos # (Auto) (0.0-0.8) 10^3/u L Baso # (Auto) (0.0-0.1) 10^3/u L Nucleated RBC % (a uto) % Nucleated RBCs # /100WBC PT (10.5-13.3) SECO NDS INR (0.8-1.2) Sodium 136 (136-145) mmol/L Potassium 3.9 (3.5-5.1) mmol/L Chloride 101 (98-107) mmol/L Carbon Dioxide 23 (22-29) mmol/L Anion Gap 15.9 (5-19) BUN 7 (6-20) mg/dL Creatinine 0.6 (0.5-0.9) mg/dL GFR Calculation 104.6 (90-130) mL/min Glucose 161 H (65-115) mg/dL Lactic Acid (0.5-2.2) mmol/L Lactic Acid (Sepsi s) (0.5-2.2) mmol/L Calcium 9.1 (8.5-10.5) mg/dL Magnesium (1.7-2.3) mg/dL Total Bilirubin 0.5 (0.15-1.2) mg/dL AST 21 (0-32) U/L ALT 25 (0-33) U/L Alkaline Phosphata se 97 (35-105) IU/L Troponin I 6 Hour 6.00 (0-10) ng/mL Troponin I Hi Sens Del 0 (0-12) ng/L Troponin T Baselin e (0-10) ng/mL Troponin T 120 Min [place] (0-10) ng/mL Delta Troponin T (0-10) ABS# Total Protein 6.7 (6.6-8.7) g/dL Albumin 4.1 (3.5-5.2) g/dL Globulin 2.6 (1.3-4.6) g/dL Lipase 10 L (13-60) U/L HCG, Qual (Negative) Urine Color (Yellow) Urine Appearance (CLEAR) Urine pH (5-7) Ur Specific Gravit y (1.005-1.030) Urine Protein (Negative) Urine Glucose (UA) (Normal) Urine Ketones (Negative) Urine Blood (Negative) Urine Nitrate (Negative) Urine Bilirubin (NEGATIVE) Urine Urobilinogen (Negative) mg/dL Ur Leukocyte Niurka ase (Negative) Ethyl Alcohol (0-10) mg/dL Discharge Plan Discharge Patient Disposition: Admitted As Inpatient Admit Provider: Oscar Mcmanus Clinical Impression: Post-cholecystectomy syndrome, Dehydration Condition: Stable Discharge Orders: Discharge Order (Routine); Ordered 06/23/19 Ordered By: Oscar Mcmanus Discharge Diet: Advance as tolerated Discharge Activity: Resume usual activity Interventions: ED Discharge Assessment Last Done: 06/21/19 13:26 Discharge Date/Time: 06/21/19 14:15 Sign Out Sign Out Data: Patient Sign Out occurred on 06/21/19 at 07:08. Patient's care was discussed, a nd care was transferred from Sirena Morejon to Shin Dorado DO. Sign Out Comment: Case turned over to Dr. Dorado at change of shift. Last updated by Sirena Morejon at 06/21/19 05:33 Coding Level of Care Code ED Project Leader for Chg Fwd Exam Comprehensive The documentation recorded by the Osmani aguila Ashley, accurately reflects the service I personally performed and the decisions made by me, Sirena Morejon Jun 21, 2019 00:44
--- NOTE | 2019-06-21 00:50 | CTR_ITS ---
PROCEDURE INFORMATION: Exam: CT Abdomen And Pelvis With Contrast Exam date and time: 06/21/2019 12:51 AM Age: 54 years old Clinical indication: Abdominal pain; Generalized; Prior surgery; Surgery date: <1 month; Surgery type: Cholecystectomy, HX appendectomy TECHNIQUE: Imaging protocol: Computed tomography of the abdomen and pelvis with intravenous contrast. Total DLP: 1444.53 mGy-cm Radiation optimization: All CT scans at this facility use at least one of these dose optimization techniques: automated exposure control; mA and/or kV adjustment per patient size (includes targeted exams where dose is matched to clinical indication); or iterative reconstruction. Contrast material: OMNI 300; Contrast volume: 95 ml; Contrast route: 22G; COMPARISON: CT abdomen pelvis w con* [id number] 06/06/2019 1:36 PM FINDINGS: Lungs: Lung bases are clear. Liver: The liver is normal. Gallbladder and bile ducts: The gallbladder is absent. There is no intrahepatic or extrahepatic bile duct dilation. No fluid in the gallbladder fossa. Pancreas: The pancreas is unremarkable. Spleen: Splenic size is normal. There are scattered calcifications consistent with healed granulomas. Adrenals: The adrenal glands are unremarkable. Kidneys and ureters: The kidneys are unremarkable. No hydronephrosis or stones. No ureteral dilation. Stomach and bowel: The stomach is unremarkable. The small bowel is nondilated. There is no sign of inflammation. The colon is diffusely decompressed. There is moderate pancolonic diverticulosis without evidence of diverticulitis. Appendix: The appendix is absent. Intraperitoneal space: There is no free air or significant intraperitoneal free fluid. Vasculature: The abdominal aorta is normal. There is no aneurysm or dissection. Lymph nodes: There is no lymphadenopathy in the retroperitoneum, mesentery, pelvis or inguinal regions. Bladder: The urinary bladder is unremarkable. Reproductive: The uterus is unremarkable. There is no adnexal mass or large cyst. Bones/joints: There is mild degenerative disease in the lumbar spine. The pelvis and hips are unremarkable. Soft tissues: The abdominal wall is intact. Focal subcutaneous edema in the right upper quadrant abdominal wall likely related to recent laparoscopic surgery. CT/CT abdomen pelvis w con* [id number] IMPRESSION: 1. No acute findings. 2. Incidental findings above. Radiation Dose CTDIVOL = (mGy): DLP = 1444.53 (mGy-cm)
--- NOTE | 2019-06-21 00:51 | XR_ITS ---
WS: [id number] Portable AP upright chest, 06/21/2019 Clinical Data: cough Comparison: Normal chest, 06/06/2019. Findings: No nodules, masses or effusions are seen. The heart is normal. The pulmonary vascularity is not increased. No pneumonia or pneumothorax is seen. XR/XR chest 1V portable [id number] Impression: Negative chest.
--- NOTE | 2019-06-21 00:51 | US_ITS ---
WS: [id number] Right upper quadrant ultrasound, 06/21/2019 Clinical Data: Abdominal Pain Comparison: None. Findings: The gallbladder is absent. The common bile duct is 6.5 mm and there are no intrahepatic ductal abnorm alities. Liver shows no cysts, masses or dilated intrahepatic ducts. The pancreas is not obscured by overlying bowel gas and is minimally swollen but no cyst or pseudocys t is seen. Right kidney measures 11.1 cm and no cyst, masses or hydronephrosis can be seen. The aorta and inferior vena cava show no vascular abnormalities. US/US abdomen limited [id number] Impression: 1. Minimal swollen pancreas but no cysts or pseudocysts. 2. Absent gallbladder.
--- NOTE | 2019-06-21 00:51 | ECG_ITS ---
Measurements Intervals [place] Rate: 66 P: 41 DE: 148 QRS: 79 QRSD: 124 T: 65 QT: 440 QTc: 463 SINUS RHYTHM RIGHT BUNDLE BRANCH BLOCK [120+ ms QRS DURATION, UPRIGHT V1, 40+ ms S IN I/aVL/V4/V5/V6] Compared to ECG 06/06/2019 13:43:48 Right bundle-branch block now present Sinus bradycardia no longer present Electronically Signed On 06-21-2019 11:10:23 [employer]ATTRESS AND [employer]OXSPRINGS SUPERVISOR by Claudia Kulkarni M.D. [id number]
[2019-06-21] MEDS: HYDROmorphone 1 mg/mL INJ 1 mL IVP ×2 (01:01→03:11)
[2019-06-21] MEDS: ondansetron 2 mg/ML SDV 2 mL 4 MG IVP ×2 (01:01→03:11)
[2019-06-21 01:16] LABS: Basophils # 0.1 10^3/uL (0.0-0.1); Basophils % 0.4 %; Eosinophils # 0.1 10^3/uL (0.0-0.8); Eosinophils % 0.9 %; Hematocrit 44.1 % (37.0-47.0); Hemoglobin 14.5 g/dL (11.5-15.3); Lymphocytes # 1.3 10^3/uL (0.8-4.8); Mean Corpuscular HGB Conc 32.9 g/dL (30.0-36.0); Mean Corpuscular Hemoglobin 27.7 pg (28.0-34.0); Mean Corpuscular Volume 84.3 fL (81-99); Mean Platelet Volume 10.1 fL (7.4-10.4); Monocytes # 0.7 10^3/uL (0.2-0.9); Monocytes % 5.7 %; Neutrophils # 9.6 10^3/uL (1.8-7.7); Neutrophils % 81.7 %; Nucleated Red Blood Cells % 0 %; Platelet Count 382 10^3/cmm (130-400); Red Blood Count 5.23 10^6/uL (4.1-5.3); Red Cell Distribution Width 12.9 % (12.1-15.1); White Blood Count 11.8 10^3/uL (4.0-10.0)
--- NOTE | 2019-06-21 01:16 | PC.NURSE ---
PATIENTS IV HUB WAS NOT SECURED UPON ARRIVAL FROM EMS CORRECTLY AND DISCONNECTED DURING A MED PUSH BY RN. RN FIXED ISSUE BUT IT IS UNKNOWN HOW MUCH OF THE MEDICATION THE PATIENT RECEIVED OF THE 1MG DOSE OF DILAUDID. HCP NOTIFIED.
[2019-06-21 01:25] LABS: INR 1.06 (0.8-1.2)
[2019-06-21 01:35] LABS: Alanine Aminotransferase 26 U/L (0-33); Albumin Level 4.1 g/dL (3.5-5.2); Alkaline Phosphatase 102 IU/L (35-105); Anion Gap 18.8 (5-19); Aspartate Amino Transferase 19 U/L (0-32); Blood Urea Nitrogen 7 mg/dL (6-20); Calcium 10.6 mg/dL (8.5-10.5); Carbon Dioxide 23 mmol/L (22-29); Chloride 100 mmol/L (98-107); Globulin 3.5 g/dL (1.3-4.6); Glomerular Filtration Rate 87.5 mL/min (90-130); Glucose 132 mg/dL (65-115); Lipase 14 U/L (13-60); Magnesium 1.8 mg/dL (1.7-2.3); Potassium 3.8 mmol/L (3.5-5.1); Sodium 138 mmol/L (136-145); Total Bilirubin 0.8 mg/dL (0.15-1.2); Total Protein 7.6 g/dL (6.6-8.7)
[2019-06-21 01:37] LABS: Lactic Sepsis W/Reflex 2.3 mmol/L (0.5-2.2)
[2019-06-21 01:44] LABS: Alcohol Level < 10 mg/dL (0-10)
[2019-06-21] MEDS: iohexol 300 mg/mL 100 mL Btl IV (01:51)
[2019-06-21 01:56] LABS: HCG, Serum Qual Negative (Negative)
[2019-06-21 02:57] LABS: Reflex Lactate Order REFLEX LACTIC ORDERD
[2019-06-21] MEDS: sodium chloride 0.9% 2,925.66 ML 2925.7 ML IV (03:13)
--- NOTE | 2019-06-21 03:24 | ECG_ITS ---
Measurements Intervals [place] Rate: 85 P: 70 [place]: 151 QRS: 85 QRSD: 114 T: 72 QT: 375 QTc: 447 SINUS RHYTHM LOW QRS VOLTAGE IN PRECORDIAL LEADS INCOMPLETE RIGHT BUNDLE BRANCH BLOCK Compared to ECG 06/06/2019 13:43:48 Incomplete right bundle-branch block now present Sinus bradycardia no longer present Electronically Signed On 06-21-2019 11:09:55 INFORMATION SYSTEMS SUPERVISOR by Claudia Kulkarni M.D. [id number]
[2019-06-21 03:29] LABS: Bilirubin Urine Neg (NEGATIVE); Blood Urine Neg (Negative); Glucose Urine UA Norm (Normal); Ketones Urine 1+ (Negative); Leukocyte Esterase Urine Negative (Negative); Nitrate Urine Negative (Negative); Protein Urine Neg (Negative); Specific Gravity, Urine 1.015 (1.005-1.030); Urine Appearance Clear (CLEAR); Urine Color Yellow (Yellow); Urobilinogen Urine Norm (Negative); pH Urine 9 (5-7)
[2019-06-21 03:31] LABS: Add Urine Culture? No
[2019-06-21] MEDS: metoclopramide 5 mg/mL SDV 2 mL 10 MG IVP (03:47)
--- NOTE | 2019-06-21 03:47 | MR_ITS ---
WS: [id number] MRI/MRCP OF THE ABDOMEN WITHOUT GADOLINIUM ENHANCEMENT TECHNIQUE: Axial 2-D fiesta. Coronal 2-D fiesta. Thick slab MRCP. CLINICAL INFORMATION: RUQ PAIN COMPARISON: None. FINDINGS: Liver is normal. Normal portal vein and splenic vein. Cholecystectomy clips. Normal spleen. Normal pa ncreas. No fluid collections in the gallbladder fossa. No intrahepatic biliary ductal dilatation. No evidence of common bile duct calculus. No choledocholithiasis. Adrenal glands are normal. Normal renal parenchymal enhancement. No hydronephrosis. Normal caliber up per abdominal aorta. MR/MR MRCP [id number] Impression: 1. Recent postoperative cholecystectomy. No fluid in the gallbladder fossa. 2. No intrahepatic biliary duct dilatation. No evidence of choledocholithiasis . 3. No other significant findings
[2019-06-21] MEDS: pantoprazole 40 mg SDV 80 MG IVP (03:53)
[2019-06-21 04:10] LABS: Lactic Acid level (Lactate) 1.4 mmol/L (0.5-2.2); Troponin(5th) Baseline 6 ng/mL (0-10)
[2019-06-21] MEDS: haloperidol inj 5 mg/mL INJ 1 mL IM (04:45)
[2019-06-21] MEDS: LORazepam 2 mg/mL INJ 1 mL 1 MG IVP ×2 (05:12→06:55)
[2019-06-21 06:46] LABS: Troponin 5 2HR Delta 0 ABS# (0-10)
--- NOTE | 2019-06-21 08:06 | PC.NURSE ---
Pt returned from MRI
[2019-06-21 08:54] LABS: Alanine Aminotransferase 25 U/L (0-33); Albumin Level 4.1 g/dL (3.5-5.2); Alkaline Phosphatase 97 IU/L (35-105); Anion Gap 15.9 (5-19); Blood Urea Nitrogen 7 mg/dL (6-20); Calcium 9.1 mg/dL (8.5-10.5); Carbon Dioxide 23 mmol/L (22-29); Chloride 101 mmol/L (98-107); Globulin 2.6 g/dL (1.3-4.6); Glomerular Filtration Rate 104.6 mL/min (90-130); Glucose 161 mg/dL (65-115); Potassium 3.9 mmol/L (3.5-5.1); Sodium 136 mmol/L (136-145); Total Bilirubin 0.5 mg/dL (0.15-1.2); Total Protein 6.7 g/dL (6.6-8.7)
[2019-06-21 08:55] LABS: Aspartate Amino Transferase 21 U/L (0-32); Lipase 10 U/L (13-60)
--- NOTE | 2019-06-21 09:24 | ECG_ITS ---
Measurements Intervals [place] Rate: 85 P: 56 NE: 164 QRS: 71 QRSD: 121 T: 34 QT: 397 QTc: 474 SINUS RHYTHM RIGHT BUNDLE BRANCH BLOCK [120+ ms QRS DURATION, UPRIGHT V1, 40+ ms S IN I/aVL/V4/V5/V6] Compared to ECG 06/06/2019 13:43:48 Right bundle-branch block now present Sinus bradycardia no longer present Electronically Signed On 06-21-2019 11:14:14 DREDGE PIPEMAN by Claudia Kulkarni M.D. [id number]
[2019-06-21] MEDS: sodium chloride 0.9% 1,000 ML 999 ML IV (10:08)
[2019-06-21 10:12] LABS: Troponin 5 6HR Delta 0 ng/L (0-12)
[2019-06-21] MEDS: sodium chlor 0.9% + KCl 20 mEq 20 MEQ/1,000 ML BAG 150 MEQ IV (12:51)
--- NOTE | 2019-06-21 13:25 | PM.HP ---
Providers/Chief Complaint Primary Care Provider: Lucille Black MD Chief Complaint: possible sepsis History of Present Illness Felicia Weaver is a 54 year old female with no significant past medical history who presents to [facility] for evaluation of nausea, vomiting, diarrhea for the past week. Patient states that she was recently discharged from [facility] for cholelithiasis with choledocholithiasis for which she had an ERCP and cholecystectomy. Patient states that since her surgery she continues to have nausea, vomiting, diarrhea, chills, no fevers. States that she was discharged with pain medications and nausea medications, but they have not helped. No bloody or black stools, no lightheadedness, no dizziness, but cannot keep down liquids. Last bowel movement was this morning. Last meal was yesterday afternoon. Review of Systems Const: Denies: fever, chills, fatigue or malaise Eyes: Denies: change in vision or blurry vision ENMT: Denies: nasal congestion Resp: Denies: shortness of breath, productive cough, non-productive cough or wheezing GI: Reports: abdominal pain, nausea, vomiting and diarrhea; Denies: vomiting blood, constipation, blood in stool or black tarry stool : Denies: flank pain, painful urination or urinary frequency Musc: Denies: neck pain or back pain Skin/Breast: Denies: rash Neuro: Denies: headache, dizziness or vertigo Psych: Denies: anxiety or depression Endo: Denies: excessive urination or excessive thirst Medications/Allergies Home Medications Medication Instructions Recorded Confirmed Last Taken Type oxycodone 5 mg PO Q4H PRN 06/21/19 06/21/19 06/20/19 History promethazine 25 mg PO Q6H PRN 06/21/19 06/21/19 06/20/19 History Allergies Allergy/AdvReac Type Severity Reaction Status Date / Time No Known Allergies Allergy Verified 06/07/19 07:29 PFSH Acute PFSH: Medical History (Updated 06/21/19 @ 13:35 by Oscar Mcmanus MD) B12 deficiency Surgical History (Updated 06/21/19 @ 13:35 by Oscar Mcmanus MD) History of appendectomy Status post cholecystectomy Social History (Updated 06/21/19 @ 13:35 by Oscar Mcmanus MD) Smoking and tobacco status: former smoker Alcohol intake: never Substance/Drug Use: never Female Reproductive History: : 3 Vitals/I&O/Wt Last Vital Signs Temp 97.5 F L 06/21/19 00:45 Pulse 97 06/21/19 12:32 Resp 16 06/21/19 12:32 BP 106/74 06/21/19 12:32 Pulse Ox 96 06/21/19 12:32 06/20/19 06/21/19 06/21/19 22:59 06:59 14:59 Intake Total 3925.66 / 3925.66 Balance 3925.66 / 3925.66 Weight last 48 hrs Weight 97.522 kg Physical Exam Const: COMMON NORMALS: no apparent distress and oriented x3 GENERAL APPEARANCE: cooperative and comfortable HENMT: COMMON NORMALS: normocephalic HEAD & SCALP: normocephalic Eye: COMMON NORMALS: PERRL, EOMs intact bilaterally and no papilledema GENERAL EYE: normal appearance of both eyes PUPIL: Yes PERRL DIRECT OPHTHALMOSCOPY: Yes no papilledema Neck/C-Spine: COMMON NORMALS: full ROM, no lymphadenopathy, no JVD and thyroid normal THYROID: thyroid normal Lymph: LYMPHATIC: no lymphadenopathy noted Resp: COMMON NORMALS: normal respiratory effort, no retractions, no use of accessory muscles and clear to auscultation bilaterally AUSCULTATION: clear to auscultation bilaterally Cardio: COMMON NORMALS: no JVD, regular rate, regular rhythm, S1 normal heart sound, S2 normal heart sound, no gallops, no clicks and no murmurs RATE: regular rate RHYTHM: regular rhythm HEART SOUNDS: S1 normal and S2 normal GI: COMMON NORMALS: normal to inspection, nondistended, normoactive bowel sounds, soft to palpation and no hepatosplenomegaly PALPATION: Yes soft, Yes tender and Yes no hepatosplenomegaly Extremity: COMMON NORMALS: normal to inspection, full ROM and no pedal edema Neuro: COMMON NORMALS: oriented x3, CN's II-XII intact bilaterally, moves all extremities and no focal motor deficits Psych: COMMON NORMALS: mental status grossly normal, thought process normal and cooperative THOUGHT PROCESS: normal thought process Data : 06/21/19 01:00 06/21/19 08:03 A&P Assessment and plan (1) Post-cholecystectomy syndrome: -Status post cholecystectomy June 13, 2019 -Having diarrhea, nausea, vomiting, sinus tachycardia likely secondary to dehydration -Likely postcholecystectomy syndrome and possibly ampula tello dysfunction Plan: -Pain control with Dilaudid, Zofran for nausea, IV fluids -Start cholestyramine -Clear liquid diet -If patient symptoms persist will consider pursuing HIDA scan to evaluate ampulla tello dysfunction Status: Acute Code(s): K91.5 - Postcholecystectomy syndrome (2) Dehydration: Status: Acute Code(s): E86.0 - Dehydration Attestations Medical Necessity Statement*: She requires hospitalization, outpatient observation, for postcholecystectomy syndrome Coding Level of Care Code Acute Computer Programming Professor for [facility] Diagnoses Post-cholecystectomy syndrome K91.5 Dehydration E86.0
--- NOTE | 2019-06-21 13:32 | PC.NURSE ---
Attempted to call report to floor, was on hold for 6 minutes with no nurse. Hung up and called 2 North desk and 2 South desk with no answer. Will continue to attempt.
[2019-06-21] MEDS: D5-NS 0.45% + KCL 20 mEq 20 MEQ/1,000 ML BAG 100 MEQ IV (14:19)
[2019-06-21] MEDS: enoxaparin 40 mg/0.4 mL Syringe SUBCUT (14:49)
[2019-06-21] MEDS: cholecalciferol (vitamin D3) 5,000 unit Tablet 5000 UNIT PO (18:03)
[2019-06-21] MEDS: cholestyramine powder 4 gm Pkt PO (18:05)
[2019-06-22] VITALS (11 sets, daily range): BP systolic 107–124; BP diastolic 66–78; PULSE 72–78; RESP 16–18; TEMP 36.4–37; O2SAT 94–96
[2019-06-22] MEDS: D5-NS 0.45% + KCL 20 mEq 20 MEQ/1,000 ML BAG 100 MEQ IV ×3 (02:24→22:09)
[2019-06-22] MEDS: ondansetron 2 mg/ML SDV 2 mL 4 MG IVP ×2 (03:13→13:32)
--- NOTE | 2019-06-22 03:28 | PC.NURSE ---
Patient Complaint: New pt complaint of abdomen feeling very warm. [place] abdomen and was cigar making supervisor the upper right abdominal area right below the breast. No fevers tonight. Abdomen is firm, but not distended, and no redness. Marilee BURGOS
[2019-06-22 05:18] LABS: Basophils % 0.3 %; Eosinophils # 0.1 10^3/uL (0.0-0.8); Eosinophils % 1.3 %; Hemoglobin 12.6 g/dL (11.5-15.3); Lymphocytes # 1.4 10^3/uL (0.8-4.8); Lymphocytes % 14.3 %; Mean Corpuscular HGB Conc 32.3 g/dL (30.0-36.0); Mean Corpuscular Hemoglobin 27.8 pg (28.0-34.0); Mean Corpuscular Volume 86.1 fL (81-99); Mean Platelet Volume 10.1 fL (7.4-10.4); Monocytes # 0.8 10^3/uL (0.2-0.9); Monocytes % 8.3 %; Neutrophils # 7.6 10^3/uL (1.8-7.7); Neutrophils % 75.5 %; Nucleated Red Blood Cells % 0 %; Platelet Count 345 10^3/cmm (130-400); Red Blood Count 4.53 10^6/uL (4.1-5.3); Red Cell Distribution Width 12.9 % (12.1-15.1); White Blood Count 10.1 10^3/uL (4.0-10.0)
[2019-06-22 05:51] LABS: Alanine Aminotransferase 24 U/L (0-33); Albumin Level 3.8 g/dL (3.5-5.2); Alkaline Phosphatase 90 IU/L (35-105); Anion Gap 14.6 (5-19); Aspartate Amino Transferase 21 U/L (0-32); Blood Urea Nitrogen 4 mg/dL (6-20); Calcium 9.3 mg/dL (8.5-10.5); Carbon Dioxide 25 mmol/L (22-29); Chloride 101 mmol/L (98-107); Glomerular Filtration Rate 129.1 mL/min (90-130); Glucose 157 mg/dL (65-115); Magnesium 1.9 mg/dL (1.7-2.3); Phosphorus 3.2 mg/dL (2.5-4.5); Potassium 3.6 mmol/L (3.5-5.1); Sodium 137 mmol/L (136-145); Total Bilirubin 0.8 mg/dL (0.15-1.2); Total Protein 6.8 g/dL (6.6-8.7)
--- NOTE | 2019-06-22 08:11 | PC.NURSE ---
Assessment Skin temperature in RUQ hot to touch. Patient afebrile. Incisions asymptomatic. Skin around incisions only warm to touch.
[2019-06-22] MEDS: cholestyramine powder 4 gm Pkt PO ×2 (09:01→17:35)
[2019-06-22] MEDS: cholecalciferol (vitamin D3) 5,000 unit Tablet 5000 UNIT PO (09:01)
[2019-06-22] MEDS: cyanocobalamin 1,000 mcg Tablet 2000 MCG PO (09:01)
[2019-06-22] MEDS: promethazine 25 mg/mL SDV 1 mL 12.5 MG IM ×2 (15:23→22:09)
[2019-06-22] MEDS: enoxaparin 40 mg/0.4 mL Syringe SUBCUT (15:26)
[2019-06-22] MEDS: NIFEdipine 10 mg Capsule PO (17:35)
[2019-06-22] MEDS: acetaminophen 325 mg Tablet 650 MG PO (19:18)
--- NOTE | 2019-06-22 19:39 | P.PN_ITS ---
Subjective Subjective: Interval history: Patient is feeling a bit better this morning, but still has abdominal pain, nausea, diarrhea has improved, Patient states that she does not want to be transferred at this point, she wants to give another day try of conservative management She is okay to try something to help with her sphincter Oddi dysfunction, add nausea medication, see how the next 24-hour takes this Vitals/I&O/Wt Last Vital Signs Temp 98.2 F 06/22/19 16:00 Pulse 72 06/22/19 16:00 Resp 16 06/22/19 16:00 BP 114/76 06/22/19 17:34 Pulse Ox 96 06/22/19 16:00 06/22/19 06/22/19 06/22/19 06:59 14:59 22:59 Intake Total 1000 / 5125.66 1420 / 1420 Output Total 1400 / 1900 1300 / 1300 1250 / 2550 Balance -400 / 3225.66 120 / 120 -1250 / -1130 Weight last 48 hrs Weight 97.522 kg Physical Exam Const: COMMON NORMALS: no apparent distress and oriented x3 HENMT: COMMON NORMALS: normocephalic HEAD & SCALP: normocephalic Neck/C-Spine: COMMON NORMALS: no JVD Resp: COMMON NORMALS: normal respiratory effort, no retractions, no use of accessory muscles and clear to auscultation bilaterally AUSCULTATION: clear to auscultation bilaterally Cardio: COMMON NORMALS: no JVD, regular rate, regular rhythm, S1 normal heart sound and S2 normal heart sound RATE: regular rate RHYTHM: regular rhythm HEART SOUNDS: S1 normal and S2 normal GI: COMMON NORMALS: normal to inspection, nondistended, normoactive bowel sounds, soft to palpation, no hepatosplenomegaly, no masses and no bruits PAL PATION: Yes soft, Yes tender and Yes no hepatosplenomegaly Extremity: COMMON NORMALS: normal capillary refill, no clubbing, cyanosis or edema, no calf tenderness and no pedal edema Neuro: COMMON NORMALS: oriented x3 Psych: COMMON NORMALS: mental status grossly normal Data : 06/22/19 04:47 06/22/19 04:47 A&P Assessment and plan (1) Post-cholecystectomy syndrome: -Status post cholecystectomy June 13, 2019 -Having diarrhea, nausea, vomiting, sinus tachycardia likely secondary to dehydration -Likely postcholecystectomy syndrome and possibly sphincter of Oddi dysfunction Plan: -Pain control with Dilaudid, Zofran for nausea, add promethazine and Reglan IV fluids -Continue cholestyramine -Try GI soft diet -I have added nifedipine to help with sphincter of Oddi dysfunction -Patient at this point does not want to be transferred to [facility] where she had her cholecystectomy, wants to give another day trial of conservative management rather than surgical intervention Status: Acute Code(s): K91.5 - Postcholecystectomy syndrome (2) Dehydration: Status: Acute Code(s): E86.0 - Dehydration Attestations Medical Necessity Statement*: Patient requires continued hospitalization due to postcholecystectomy syndrome Coding Level of Care Code Acute English Lecturer for [facility] Diagnoses Post-cholecystectomy syndrome K91.5 Dehydration E86.0
--- NOTE | 2019-06-22 22:13 | PC.CHAP ---
Pastoral Care Encounter/Spiritual Assessment Type of Contact [] Declined swat team member visit [] Patient/Family/Request visit [] Outpatient visit [] Follow-up visit [] Physician referral [] Code/Alert [X] Routine visit [] Staff referral [] Actively dying [] Patient sleeping [] Family support [] [] Out of room [] Palliative care [] [] Receiving care in room [] Pre-surgical visit [] Trauma [] Long length of stay [] ICU visit [] Other: Relational/Emotional Strength [] Patient feels connected with others/family/visitors/staff [] Distress [] Loneliness/isolation [] Abandonment Spirituality of Patient [] Person of Shavonne [] Attends Episcopalian of their Shavonne [] Believes in Prayer [] Reads Bible or Congregation materials [] There are Spiritual issues to be addressed Development Executive Interventions [] Prayer [] Active listening [] Non-anxious presence [] Spiritual/emotional support [] Crisis/trauma care [] Spiritual counseling [] Bereavement support [] Provided bereavement packet [] Provided Bible/devotional materials [] Provided toy/stuffed animal, coloring book to patient or family member [] Provided Communion [] Anointing/[place] [] Salvation [] Completed spiritual assessment [] Other: Impact on Illness or Injury [] Angry [] Fearful [] Anxious [] Often cries [] Exhaustion [] Unable to work [] Unable to attend gnosticist [] Unable to walk/stand [] Unable to read [] Unable to drive [] Unable to eat/drink [] Unable to sleep [] Unable to be with family [] Patient intubated [] Other: Summary HAD PRAYER WITH PATIENT AND , ONE VISITOR Time spent with patient
[2019-06-23] VITALS: BP 100/69; PULSE 73; RESP 18; TEMP 36.9; O2SAT 94
[2019-06-23] MEDS: acetaminophen 325 mg Tablet 650 MG PO ×3 (01:28→12:05)
[2019-06-23 04:00] VITALS: BP 100/64; PULSE 69; RESP 16; TEMP 36.8; O2SAT 96
[2019-06-23 05:44] LABS: Basophils # 0.1 10^3/uL (0.0-0.1); Basophils % 0.6 %; Eosinophils # 0.2 10^3/uL (0.0-0.8); Eosinophils % 2.1 %; Hematocrit 41.2 % (37.0-47.0); Hemoglobin 13.1 g/dL (11.5-15.3); Lymphocytes # 2.1 10^3/uL (0.8-4.8); Lymphocytes % 25.9 %; Mean Corpuscular HGB Conc 31.8 g/dL (30.0-36.0); Mean Corpuscular Hemoglobin 27.4 pg (28.0-34.0); Mean Corpuscular Volume 86.2 fL (81-99); Monocytes # 0.7 10^3/uL (0.2-0.9); Monocytes % 8.2 %; Neutrophils # 5.1 10^3/uL (1.8-7.7); Neutrophils % 62.8 %; Nucleated Red Blood Cells % 0 %; Platelet Count 381 10^3/cmm (130-400); Red Blood Count 4.78 10^6/uL (4.1-5.3); Red Cell Distribution Width 12.8 % (12.1-15.1); White Blood Count 8.2 10^3/uL (4.0-10.0)
[2019-06-23 06:18] LABS: Alanine Aminotransferase 40 U/L (0-33); Albumin Level 4.4 g/dL (3.5-5.2); Alkaline Phosphatase 102 IU/L (35-105); Anion Gap 17.5 (5-19); Aspartate Amino Transferase 47 U/L (0-32); Blood Urea Nitrogen 4 mg/dL (6-20); Carbon Dioxide 24 mmol/L (22-29); Chloride 101 mmol/L (98-107); Globulin 2.7 g/dL (1.3-4.6); Glomerular Filtration Rate 87.5 mL/min (90-130); Glucose 117 mg/dL (65-115); Phosphorus 3.4 mg/dL (2.5-4.5); Potassium 3.5 mmol/L (3.5-5.1); Sodium 139 mmol/L (136-145); Total Bilirubin 0.5 mg/dL (0.15-1.2); Total Protein 7.1 g/dL (6.6-8.7)
[2019-06-23 07:36] VITALS: BP 102/66; PULSE 73; RESP 18; TEMP 36.3; O2SAT 96
[2019-06-23] MEDS: D5-NS 0.45% + KCL 20 mEq 20 MEQ/1,000 ML BAG 100 MEQ IV (07:54)
[2019-06-23] MEDS: cholestyramine powder 4 gm Pkt PO (08:04)
[2019-06-23] MEDS: cholecalciferol (vitamin D3) 5,000 unit Tablet 5000 UNIT PO (08:04)
[2019-06-23] MEDS: cyanocobalamin 1,000 mcg Tablet 2000 MCG PO (08:04)
[2019-06-23] MEDS: NIFEdipine 10 mg Capsule PO (08:04)
[2019-06-23] MEDS: promethazine 25 mg/mL SDV 1 mL 12.5 MG IM (10:54)
[2019-06-23 10:55] VITALS: RESP 18
[2019-06-23 11:32] VITALS: BP 118/80; PULSE 78; RESP 18; TEMP 37.1; O2SAT 97
--- NOTE | 2019-06-23 13:48 | PM.DCS ---
Discharge Providers Date of Admission: 06/21/19 12:37 Date of Discharge: June 23, 2019 Attending Provider at Admission: Oscar Mcmanus MD Attending Provider at Discharge: Oscar Mcmanus MD Primary Care Provider: Lucille Black MD Diagnoses at Discharge Discharge Diagnosis (1) Post-cholecystectomy syndrome: Status: Acute (2) Dehydration: Status: Acute Reason for Visit Reason for Visit: Reason For Visit: possible sepsis Hospital Course Discharge Summary: This is a 54-year-old female with a past medical history of cholelithiasis with choledocholithiasis status post ERCP cholecystectomy at [facility] who presented to [facility] due to complaints of nausea, vomiting, diarrhea. Patient was admitted for dehydration secondary to postcholecystectomy syndrome, received IV hydration, pain control, nausea control. For her diarrhea she she received cholestyramine, her diarrhea has significantly improved. However patient continued to have abdominal pain, associated with sphincter of Oddi dysfunction, medical management versus transfer to [facility] for surgical intervention were offered to the patient, patient elected for medical management, she was tried on nifedipine 10 mg twice daily, tolerated well, her symptoms significantly improved. Patient was discharged on nifedipine 10 mg p.o. twice daily, with a follow-up with [facility] in a week for sphincter of Oddi dysfunction for further evaluation and possible surgical intervention. Physical Exam Const: COMMON NORMALS: no apparent distress and oriented x3 GENERAL APPEARANCE: cooperative and comfortable Neck/C-Spine: COMMON NORMALS: full ROM, no lymphadenopathy, no JVD and thyroid normal THYROID: thyroid normal Lymph: LYMPHATIC: no lymphadenopathy noted Resp: COMMON NORMALS: normal respiratory effort, no retractions, no use of accessory muscles and clear to auscultation bilaterally AUSCULTATION: clear to auscultation bilaterally Cardio: COMMON NORMALS: no JVD, regular rate, regular rhythm, S1 normal heart sound, S2 normal heart sound, no gallops, no clicks and no murmurs RATE: regular rate RHYTHM: regular rhythm HEART SOUNDS: S1 normal and S2 normal GI: COMMON NORMALS: normal to inspection, nondistended, normoactive bowel sounds, soft to palpation, no hepatosplenomegaly, no masses and no bruits PALPATION: Yes soft, Yes tender and Yes no hepatosplenomegaly Extremity: COMMON NORMALS: normal to inspection, full ROM, normal capillary refill, no clubbing, cyanosis or edema, no calf tenderness and no pedal edema Neuro: COMMON NORMALS: oriented x3 Discharge Data Data Completed and Pending: Completed Studies During Hospitalization Category Date Time Status CT abdomen pelvis w con* [id number] Urge nt Cat Scan 06/21/19 00:50 Completed XR chest 1V jayro ble [id number] Stat Exams 06/21/19 00:51 Completed MR MRCP [id number] Urg ent MRI 06/21/19 03:47 Completed US abdomen limite d [id number] Urgent Ultrasound 06/21/19 00:51 Completed Pending at discharge Category Date Time Status Complete Blood Co unt w/Auto AM LABS Lab 06/24/19 04:00 Ordered Complete Blood Co unt w/Auto AM LABS Lab 06/25/19 04:00 Ordered Comprehensive Met abolic Panel AM LA BS Lab 06/24/19 04:00 Ordered Magnesium AM LABS Lab 06/24/19 04:00 Ordered Phosphorus AM LAB S Lab 06/24/19 04:00 Ordered Labs from last 24 hours 06/23/19 06/23/19 04:59 04:59 WBC 8.2 RBC 4.78 Hgb 13.1 Hct 41.2 MCV 86.2 MCH 27.4 L MCHC 31.8 RDW 12.8 Plt Count 381 MPV 10.0 Neut % (Auto) 62.8 Lymph % (Auto) 25.9 [place] % (Auto) 8.2 Eos % (Auto) 2.1 Baso % (Auto) 0.6 Neut # (Auto) 5.1 Lymph # (Auto) 2.1 [place] # (Auto) 0.7 Eos # (Auto) 0.2 Baso # (Auto) 0.1 Nucleated RBC % (a uto) 0 Nucleated RBCs # 0.0 Sodium 139 Potassium 3.5 Chloride 101 Carbon Dioxide 24 Anion Gap 17.5 BUN 4 L Creatinine 0.7 GFR Calculation 87.5 L Glucose 117 H Calcium 10.0 Phosphorus 3.4 Magnesium 2.0 Total Bilirubin 0.5 AST 47 H ALT 40 H Alkaline Phosphata se 102 Total Protein 7.1 Albumin 4.4 Globulin 2.7 Vitals: Last Vital Signs Temp 98.7 F 06/23/19 11:32 Pulse 78 06/23/19 11:32 Resp 18 06/23/19 11:32 BP 118/80 06/23/19 11:32 Pulse Ox 97 06/23/19 11:32 Discharge Plan Discharge Patient Disposition: Home, Self-Care Condition: Stable Prescriptions: New nifedipine 10 mg Capsule 10 mg PO BID 30 Days Qty: 60 RF: 0 cholestyramine (with sugar) 4 gram Powder In Packet 4 g PO DAILY 30 Days Qty: 30 RF: 0 Zofran 4 mg tablet 4 mg PO Q8H PRN (Reason: nausea and vomiting) 14 Days Qty: 15 RF: 0 Continued acetaminophen [Tylenol Extra Strength] 500 mg Tablet 500 mg PO Q6H PRN (Reason: Pain) RF: 0 cholecalciferol (vitamin D3) [Vitamin D3] 125 mcg (5,000 unit) Tablet 125 mcg PO DAILY RF: 0 Vitamin B-12 2 tab PO DAILY RF: 0 Changed promethazine 25 mg Tablet 25 mg PO Q8H PRN (Reason: Nausea) 14 Days Qty: 42 RF: 0 oxycodone 5 mg Tablet 5 mg PO Q24H PRN (Reason: Pain) 14 Days Qty: 28 RF: 0 Discharge Orders: Discharge Order (Routine); Ordered 06/23/19 Ordered By: Oscar Mcmanus Referrals: Lucille Black MD [Primary Care Provider] - Discharge Diet: Advance as tolerated Discharge Activity: Resume usual activity Patient Instructions: Soft Diet (DC) Activity Restrictions/Additional Instructions: -Follow-up with [facility] in the next week Discharge Attestations Time Spent in Discharge Care*: less than 30 min Quality Metrics Clinical Quality Measures During this hospital stay, did patient experience: None Coding Level of Care Code Acute Residential Lawn Specialist for g Fwd Diagnoses Post-cholecystectomy syndrome K91.5 Dehydration E86.0
[2019-06-23 15:00] VITALS: BP 118/80; PULSE 78; RESP 18; TEMP 37.1; O2SAT 97
--- NOTE | 2019-06-23 16:27 | PC.NURSE ---
DC to home, IV DC'd Cath intact , bleeding controlled with 2x2 and coban, Dc instructions give, to main entrance via wheelchair to POV with zero difficulty
== END 2019-06-23 15:18 | disposition home or self-care (01) ==
LOC: ER 13:27 → MEDSURG 13:29
PROVIDERS: Emergency Medicine; Admitting Provider Family Medicine; Emergency Provider Family Medicine; PCP Family Medicine; Visit Provider Family Medicine
DX: K91.5 Postcholecystectomy syndrome (principal); E86.0 Dehydration; Z87.891 Personal history of nicotine dependence
CPT/HCPCS: 12345; 36415; 71045; 74177; 74181; 76700; 76705; 80053; 80307; 81001; 83605; 83690; 83735; 84100; 84484; 84703; 85025; 85610; 93005; 96360; 96361; 96365; 96366; 96372; 96375; 96376; 99284; 99285; A9270; C9113; G0378; J1170; J1630; J1650; J2060; J2405; J2550; J2765; J7030; Q9967

== ENCOUNTER → 2020-09-03 11:10 | Outpatient (BNVA) | payer SELFPAY | PROVIDERS: PCP Family Medicine; Visit Provider Nurse Practitioner Family | DX: M25.551 Pain in right hip (principal) | CPT/HCPCS: 73502 ==

== ENCOUNTER 2020-10-19 12:17 | Emergency (ER) | payer SELFPAY ==
[2020-10-19] VITALS (7 sets, daily range): BP systolic 91–141; BP diastolic 55–72; PULSE 63–82; RESP 16–18; TEMP 36.9; O2SAT 95–98; BMI 25.4
--- NOTE | 2020-10-19 13:05 | XRR_ITS ---
PROCEDURE INFORMATION: Exam: XR Chest Exam date and time: 10/19/2020 1:05 PM Age: 55 years old Clinical indication: Shortness of breath; Additional info: SOB TECHNIQUE: Imaging protocol: XR of the chest. Views: 1 view. COMPARISON: CR XR chest 1V portable [id number] 06/21/2019 1:22 AM FINDINGS: Lungs: Unremarkable. No consolidation. Pleural spaces: Unremarkable. No pleural effusion. No pneumothorax. Heart/Mediastinum: Unremarkable. No cardiomegaly. Bones/joints: Unremarkable. XR/XR chest 1V portable [id number] IMPRESSION: No acute findings.
[2020-10-19 13:19] LABS: Basophils % 0.4 %; Eosinophils # 0.5 10^3/uL (0.0-0.8); Eosinophils % 6.9 %; Hematocrit 40.1 % (37.0-47.0); Hemoglobin 13.1 g/dL (11.5-15.3); Lymphocytes # 0.3 10^3/uL (0.8-4.8); Lymphocytes % 4.5 %; Mean Corpuscular HGB Conc 32.7 g/dL (30.0-36.0); Mean Corpuscular Hemoglobin 28.9 pg (28.0-34.0); Mean Corpuscular Volume 88.5 fL (81-99); Mean Platelet Volume 10.3 fL (7.4-10.4); Monocytes # 0.5 10^3/uL (0.2-0.9); Monocytes % 6.4 %; Neutrophils # 5.78 10^3/uL (1.8-7.7); Neutrophils % 81.7 %; Nucleated Red Blood Cells % 0 %; Platelet Count 269 10^3/cmm (130-400); Red Blood Count 4.53 10^6/uL (4.1-5.3); Red Cell Distribution Width 13.2 % (12.1-15.1); White Blood Count 7.1 10^3/uL (4.0-10.0)
[2020-10-19 13:27] LABS: Lactic Sepsis W/Reflex 0.9 mmol/L (0.5-2.2)
[2020-10-19 13:36] LABS: NT Pro B Type Natriuretic Pept 295 pg/mL (0-125)
--- NOTE | 2020-10-19 13:36 | ED_ITS ---
HPI - COVID General: Chief Complaint: COVID symptoms Stated Complaint: HEADACHE, NAUSEA Time Seen by Provider: 10/19/20 12:23 Source: patient Mode of arrival: EMS Limitations: no limitations Triage information: Has fever, cough or shortness of breath . Exposure to COVID + person last 14 days History of Present Illness: HPI Narrative: Has been unwell for about 2 days with nausea, vomiting, diarrhea, headache, generalized body aches, chills. She denies any fever. She states that she was told today that she was exposed to someone with Covid recently. She feels quite unwell and so she is here to be evaluated. complaint: reported COVID exposure and has COVID symptoms Prior covid testing: no COVID 19 common symptoms: positive chills, fatigue, body aches, headache(s), nausea and vomiting; negative fever(s), cough, non-productive cough, productive cough, dyspnea, loss of sense of smell and/or taste, throat pain, nasal congestion or diarrhea COVID 19 other sytmptoms: negative chest pressure, chest pain, pleuritic pain, requiring oxygen, requiring more oxygen, respiratory distress, cyanosis, confusion, new neurological complaints or other concerning symptoms Onset (ago): day(s) (2) Severity: moderate Treatment prior to arrival: none COVID Results: SARS-CoV-2 Antigen (Rapid) Positive (Negative) H 10/19/20 16:45 10/19/20 Nasal/Oral Coronavirus 2019 PCR Detected H 10/19/20 15:05 10/19/20 Review of Systems General: Reports: 10 or more systems reviewed and unremarkable except in HPI and below Const: Reports: chills, body aches and fatigue; Denies: fever(s) ENMT: Denies: throat pain or nasal congestion Card: Denies: chest pain Resp: Denies: dyspnea, productive cough or non-productive cough GI: Reports: nausea and vomiting; Denies: diarrhea Neuro: Reports: headache(s); Denies: confusion PFS ED PFSH: Medical History B12 deficiency Surgical History History of appendectomy Status post cholecystectomy Social History Smoking and tobacco status: former smoker Quit status (tobacco): has quit using tobacco Year quit tobacco: 1989 Former quit date comment: smoked 2PPD x 20 yrs Second hand smoke exposure: No Alcohol intake: never Lives independently: Yes Household members: family Marital status: / Current occupational status: unemployed History of recent travel: No Current gender identity: Female Special alfonso needs: No Agree to transfusion: Yes Physical Exam Const: COMMON NORMALS: no acute distress, average body habitus, patient oriented x3, no limitations, healthy appearing, alert and well nourished HENMT: COMMON NORMALS: normocephalic, atraumatic and moist oral mucous membranes HEAD & SCALP: normocephalic and atraumatic Neck/C-Spine: COMMON NORMALS: no meningeal signs and no JVD Resp: COMMON NORMALS: normal respiratory effort, No retractions, No use of accessory muscles, clear to auscultation bilaterally and percussion normal AUSCULTATION: clear to auscultation bilaterally PERCUSSION: percussion normal Cardio: COMMON NORMALS: no JVD, regular rate, regular rhythm, S1 normal heart sound present, S2 normal heart sound present, No gallops present (Cardio), No clicks present (Cardio), No murmurs present (Cardio), No rub (Cardio) and Peripheral pulses 2+ throughout RATE: regular rate RHYTHM: regular rhythm HEART SOUNDS: S1 normal heart sound present and S2 normal heart sound present PERIPHERAL PULSES: Peripheral pulses 2+ throughout GI: COMMON NORMALS: Normal to inspection, nondistended, normoactive bowel sounds present, Soft to palpation, non-tender, No hepatosplenomegaly present, no masses and no bruits PALPATION: Yes Soft to palpation and Yes No hepatosplenomegaly present Extremity: COMMON NORMALS: normal to inspection, full ROM, capillary refill normal, no calf tenderness and no pedal edema Neuro: COMMON NORMALS: patient oriented x3 SENSORIUM/ORIENTATION: Yes alert MENINGEAL SIGNS: Yes no meningeal signs Skin: COMMON NORMALS: no rashes or lesions noted, no wounds, turgor normal, no jaundice, no petechiae and no mottling GENERAL SKIN EXAM: no rashes or lesions noted and turgor normal Course Reevaluation(s): Reevaluation #1: Discussed her lab and imaging findings with her. She tested positive for COVID-19. She is not hypoxic, does not have any significant medical illnesses and does not meet criteria for monoclonal antibody infusion she will be discharged home with a pulse oximeter for her to monitor her oxygen saturation and she is advised to return if her oxygen saturation stays consistently below 90%. She voiced understanding and is in agreement with the plan. Time: 17:42 Vital Signs: Vital signs: Vital Signs Temperature 98.4 F 10/19/20 12:20 Pulse Rate 78 10/19/20 18:23 Respiratory Rate 18 10/19/20 18:23 Blood Pressure 108/55 10/19/20 18:23 Pulse Oximetry 96 10/19/20 18:23 MDM - COVID MDM Narrative: Medical decision making narrative: 55-year-old female who presented to the emergency department with nausea vomiting and had reported Covid exposure. She tested positive for COVID-19 while she was in the emergency department. She does not meet criteria for monoclonal antibody infusion and says she is discharged home on conservative measures she is to monitor her oxygen saturation and to return if it goes and stays below 90%. Medical Records: Attestation: I reviewed the patient's medical records. Lab Data: Attestation: I reviewed the patient's lab results. Labs: Lab Results 10/19/20 10/19/20 10/19/20 Range/Units 12:52 12:52 12:52 WBC 7.1 (4.0-10.0) 10^3/ uL RBC 4.53 (4.1-5.3) 10^6/u L Hgb 13.1 (11.5-15.3) g/dL Hct 40.1 (37.0-47.0) % MCV 88.5 (81-99) fL MCH 28.9 (28.0-34.0) pg MCHC 32.7 (30.0-36.0) g/dL RDW 13.2 (12.1-15.1) % Plt Count 269 (130-400) 10^3/c mm MPV 10.3 (7.4-10.4) fL Neut % (Auto) 81.7 % Lymph % (Auto) 4.5 % [place] % (Auto) 6.4 % Eos % (Auto) 6.9 % Baso % (Auto) 0.4 % Neut # (Auto) 5.78 (1.8-7.7) 10^3/u L Lymph # (Auto) 0.3 L (0.8-4.8) 10^3/u L [place] # (Auto) 0.5 (0.2-0.9) 10^3/u L Eos # (Auto) 0.5 (0.0-0.8) 10^3/u L Baso # (Auto) 0.0 (0.0-0.1) 10^3/u L Nucleated RBC % (a uto) 0 % Nucleated RBCs # 0.0 /100WBC D-Dimer (0-0.59) ug/mIFE U Sodium 138 (136-145) mmol/L Potassium 3.5 (3.5-5.1) mmol/L Chloride 104 (98-107) mmol/L Carbon Dioxide 26 (22-29) mmol/L Anion Gap 11.5 (5-19) BUN 6 (6-20) mg/dL Creatinine 0.5 (0.5-0.9) mg/dL GFR Calculation 128.6 (90-130) mL/min Glucose 137 H (65-115) mg/dL Calculated Osmolal ity 286 (285-295) mOsm/k g Lactic Acid 0.9 (0.5-2.2) mmol/L Calcium 8.7 (8.5-10.5) mg/dL Total Bilirubin 0.3 (0.15-1.2) mg/dL AST 24 (0-32) U/L ALT 36 H (0-33) U/L Alkaline Phosphata se 85 (35-105) IU/L C-Reactive Protein 5.7 H (0.0-4.9) mg/L NT-Pro-B Natriuret Pep 295 H (0-125) pg/mL Total Protein 6.2 L (6.6-8.7) g/dL Albumin 4.0 (3.5-5.2) g/dL Globulin 2.2 (1.3-4.6) g/dL Procalcitonin 0.20 (0-0.5) ng/mL Nasal/Oral COVID-1 9 PCR SARS-CoV-2 Ag (Rap id) 10/19/20 10/19/20 10/19/20 Range/Units 14:05 15:05 15:05 WBC (4.0-10.0) 10^3/ uL RBC (4.1-5.3) 10^6/u L Hgb (11.5-15.3) g/dL Hct (37.0-47.0) % MCV (81-99) fL MCH (28.0-34.0) pg MCHC (30.0-36.0) g/dL RDW (12.1-15.1) % Plt Count (130-400) 10^3/c mm MPV (7.4-10.4) fL Neut % (Auto) % Lymph % (Auto) % [place] % (Auto) % Eos % (Auto) % Baso % (Auto) % Neut # (Auto) (1.8-7.7) 10^3/u L Lymph # (Auto) (0.8-4.8) 10^3/u L [place] # (Auto) (0.2-0.9) 10^3/u L Eos # (Auto) (0.0-0.8) 10^3/u L Baso # (Auto) (0.0-0.1) 10^3/u L Nucleated RBC % (a uto) % Nucleated RBCs # /100WBC D-Dimer 0.41 (0-0.59) ug/mIFE U Sodium (136-145) mmol/L Potassium (3.5-5.1) mmol/L Chloride (98-107) mmol/L Carbon Dioxide (22-29) mmol/L Anion Gap (5-19) BUN (6-20) mg/dL Creatinine (0.5-0.9) mg/dL GFR Calculation (90-130) mL/min Glucose (65-115) mg/dL Calculated Osmolal ity (285-295) mOsm/k g Lactic Acid (0.5-2.2) mmol/L Calcium (8.5-10.5) mg/dL Total Bilirubin (0.15-1.2) mg/dL AST (0-32) U/L ALT (0-33) U/L Alkaline Phosphata se (35-105) IU/L C-Reactive Protein (0.0-4.9) mg/L NT-Pro-B Natriuret Pep (0-125) pg/mL Total Protein (6.6-8.7) g/dL Albumin (3.5-5.2) g/dL Globulin (1.3-4.6) g/dL Procalcitonin (0-0.5) ng/mL Nasal/Oral COVID-1 9 PCR Detected H SARS-CoV-2 Ag (Rap id) Cancelled 10/19/20 Range/Units 16:45 WBC (4.0-10.0) 10^3/ uL RBC (4.1-5.3) 10^6/u L Hgb (11.5-15.3) g/dL Hct (37.0-47.0) % MCV (81-99) fL MCH (28.0-34.0) pg MCHC (30.0-36.0) g/dL RDW (12.1-15.1) % Plt Count (130-400) 10^3/c mm MPV (7.4-10.4) fL Neut % (Auto) % Lymph % (Auto) % [place] % (Auto) % Eos % (Auto) % Baso % (Auto) % Neut # (Auto) (1.8-7.7) 10^3/u L Lymph # (Auto) (0.8-4.8) 10^3/u L [place] # (Auto) (0.2-0.9) 10^3/u L Eos # (Auto) (0.0-0.8) 10^3/u L Baso # (Auto) (0.0-0.1) 10^3/u L Nucleated RBC % (a uto) % Nucleated RBCs # /100WBC D-Dimer (0-0.59) ug/mIFE U Sodium (136-145) mmol/L Potassium (3.5-5.1) mmol/L Chloride (98-107) mmol/L Carbon Dioxide (22-29) mmol/L Anion Gap (5-19) BUN (6-20) mg/dL Creatinine (0.5-0.9) mg/dL GFR Calculation (90-130) mL/min Glucose (65-115) mg/dL Calculated Osmolal ity (285-295) mOsm/k g Lactic Acid (0.5-2.2) mmol/L Calcium (8.5-10.5) mg/dL Total Bilirubin (0.15-1.2) mg/dL AST (0-32) U/L ALT (0-33) U/L Alkaline Phosphata se (35-105) IU/L C-Reactive Protein (0.0-4.9) mg/L NT-Pro-B Natriuret Pep (0-125) pg/mL Total Protein (6.6-8.7) g/dL Albumin (3.5-5.2) g/dL Globulin (1.3-4.6) g/dL Procalcitonin (0-0.5) ng/mL Nasal/Oral COVID-1 9 PCR SARS-CoV-2 Ag (Rap id) Positive H Imaging Data: CXR: Attestation: I personally reviewed and interpreted this imaging study as follows: Radiologist's impression: [address] [id number] ReportSigned Patient: Felicia Weaver #: [id number]: 1965Acct#:[id number]/Sex: 55 / FADM Date: 10/19/20Loc: ERRoom/Bed:Attending Dr: Ordering Provider/Ordering MD: Billy Phillips MD, [facility] [place] Date of Service: 10/19/20 Procedure(s): XR chest 1V portable [id number] Accession Number(s): [id number] Report Number: [id number] PROCEDURE INFORMATION: Exam: XR Chest Exam date and time: 10/19/2020 1:05 PM Age: 55 years old Clinical indication: Shortness of breath; Additional info: SOB TECHNIQUE: Imaging protocol: XR of the chest. Views: 1 view. COMPARISON: CR XR chest 1V portable [id number] 06/21/2019 1:22 AM FINDINGS: Lungs: Unremarkable. No consolidation. Pleural spaces: Unremarkable. No pleural effusion. No pneumothorax. Heart/Mediastinum: Unremarkable. No cardiomegaly. Bones/joints: Unremarkable. XR/XR chest 1V portable [id number] IMPRESSION: No acute findings. Dictated By:Josh Restrepo MDSigned By:Josh Restrepo MDSigned Date/Time:10/19/20 1503DD/ 1502 COVID Results: SARS-CoV-2 Antigen (Rapid) Positive (Negative) H 10/19/20 16:45 10/19/20 Nasal/Oral Coronavirus 2019 PCR Detected H 10/19/20 15:05 10/19/20 Monoclonal Antibody Treatments Inclusion/Exclusion Criteria weight >/= 40 kg and + direct Sars-Cov-2 test less than 7-10 days ago age not >/= 65, BMI not >/= 35, does not have diabetes, does not have CKD, not receiving immunosuppressive therapy, does not have immunosuppressive disease, not >/= 55 with hypertension, not >/= 55 with diabetes, not >/= 55 with COPD/lung disease, not 12-17y with BMI >/= 85th percentile, not 12-17y with heart disease, not 12-17y with sickle cell disease, not 12-17y with neurodevelopemental d/o, not 12-17y with asthma/RAD/lung disease and not 12-17y w/ medical editor dependence not requiring hospitalization and not requiring oxygen (if not chronically on oxygen) Plan for treatment Does not meet criteria (DO NOT GIVE) Discharge Plan Discharge Patient Disposition: Home Clinical Impression: COVID-19 Condition: Stable Prescriptions: Continued cyclobenzaprine 10 mg tablet 10 mg PO TID PRN (Reason: muscle spasm) Qty: 30 RF: 0 Otc Hot Flash Medication 1 tab PO DAILY RF: 0 Vitamin C 1 tab PO DAILY RF: 0 activated charcoal 1 tab PO DAILY RF: 0 zinc 1 tab PO DAILY RF: 0 acetaminophen [Tylenol Extra Strength] 500 mg Tablet 500 mg PO Q6H PRN (Reason: Pain) RF: 0 cholecalciferol (vitamin D3) [Vitamin D3] 125 mcg (5,000 unit) Tablet 125 mcg PO DAILY RF: 0 Vitamin B-12 2 tab PO DAILY RF: 0 Discharge Orders: Discharge ED (Routine); Ordered 10/19/20 Ordered By: Billy Phillips Referrals: Lucille Black MD [Primary Care Provider] - 1-3 days Patient Instructions: Opioid Safety Activity Restrictions/Additional Instructions: Return for any new or worsening symptoms. Follow-up with your primary care provider within 3 days via telemedicine. Monitor your oxygen levels using the pulse oximeter that was sent home with you, and if your oxygen levels fall below 90% and stay below 90% then you need to come to the emergency department to be evaluated. Continue home medications. You need to self quarantine for at least 14 days from when the symptoms started. Coding Level of Care Code ED Chief Technical Officer for Melva Fwmadhavi Exam Comprehensive
[2020-10-19 13:47] LABS: Alanine Aminotransferase 36 U/L (0-33); Alkaline Phosphatase 85 IU/L (35-105); Anion Gap 11.5 (5-19); Aspartate Amino Transferase 24 U/L (0-32); Blood Urea Nitrogen 6 mg/dL (6-20); C Reactive Protein 5.7 mg/L (0.0-4.9); Calcium 8.7 mg/dL (8.5-10.5); Carbon Dioxide 26 mmol/L (22-29); Chloride 104 mmol/L (98-107); Globulin 2.2 g/dL (1.3-4.6); Glomerular Filtration Rate 128.6 mL/min (90-130); Glucose 137 mg/dL (65-115); Osmolality Calculated 286 mOsm/kg (285-295); Potassium 3.5 mmol/L (3.5-5.1); Sodium 138 mmol/L (136-145); Total Bilirubin 0.3 mg/dL (0.15-1.2); Total Protein 6.2 g/dL (6.6-8.7)
[2020-10-19 14:34] LABS: D Dimer 0.41 ug/mIFEU (0-0.59)
[2020-10-19] MEDS: ketorolac 30 mg/mL INJ IVP (15:06)
[2020-10-19] MEDS: ondansetron 2 mg/ML SDV 2 mL 4 MG IVP (15:07)
[2020-10-19 17:20] LABS: SARS Covid-2 Antigen Positive (Negative)
[2020-10-21 06:21] LABS: Coronavirus Test Green County Detected
== END 2020-10-19 18:24 | disposition home or self-care (01) ==
PROVIDERS: Emergency Provider Family Medicine; PCP Family Medicine
DX: U07.1 COVID-19 (principal); Z87.891 Personal history of nicotine dependence
CPT/HCPCS: 71045; 80053; 83605; 83880; 84145; 85025; 85378; 86140; 87426; 87635; 96374; 96375; 99284; J1885; J2405

== ENCOUNTER → 2021-02-15 12:20 | Outpatient (BNVA) | payer SELFPAY | PROVIDERS: PCP Family Medicine | DX: M25.572 Pain in left ankle and joints of left foot (principal); M25.472 Effusion, left ankle; S99.912A Unspecified injury of left ankle, initial encounter; W19.XXXA Unspecified fall, initial encounter | CPT/HCPCS: 73610 ==

== ENCOUNTER → 2021-03-31 17:47 | Outpatient (BNVA) | payer OTHER, SELFPAY | PROVIDERS: PCP Family Medicine; Visit Provider Nurse Practitioner Family | DX: J40 Bronchitis, not specified as acute or chronic (principal); Z20.822 Contact with and (suspected) exposure to COVID-19 | CPT/HCPCS: 87635 ==

== ENCOUNTER → 2021-04-15 12:42 | Outpatient (BNVA) | payer SELFPAY | PROVIDERS: PCP Family Medicine; Visit Provider Family Medicine | DX: Z00.00 Encounter for general adult medical examination without abnormal findings (principal); Z78.0 Asymptomatic menopausal state; K91.5 Postcholecystectomy syndrome; R94.5 Abnormal results of liver function studies; Z12.31 Encounter for screening mammogram for malignant neoplasm of breast | CPT/HCPCS: 80053; 80061; 84443; 85025 ==

== ENCOUNTER 2021-12-21 21:38 | Emergency (ER) | payer MEDICAID, SELFPAY ==
[2021-12-21 21:48] VITALS: BP 168/100; PULSE 66; RESP 16; TEMP 36.5; O2SAT 100; BMI 30.5
--- NOTE | 2021-12-21 22:53 | ED_ITS ---
HPI - Back Pain/Injury General: Chief Complaint: Back Pain/Injury Stated Complaint: Low back pain Time Seen by Provider: 12/21/21 22:34 History of Present Illness: 56-year-old female comes in today with complaints of left-sided low back pain radiating into her hip and thigh. Patient reports on Monday she was walking on some uneven ground and stepped in a hole since then her back was bothering her more. Patient denies any falls. Patient denies any loss of bowel or bladder control. Patient does report a history of prior back complaints. Review of Systems General: Reports: 10 or more systems reviewed and unremarkable except in HPI and below Musc: Reports: back pain PFSH ED PFSH: Medical History B12 deficiency Surgical History History of appendectomy Status post cholecystectomy Social History Smoking and tobacco status: former smoker (10 years) Quit status (tobacco): has quit using tobacco Year quit tobacco: 1989 Former quit date comment: smoked 2PPD x 20 yrs Second hand smoke exposure: No Alcohol intake: never Lives independently: Yes Household members: family Marital status: / Current occupational status: unemployed History of recent travel: No Current gender identity: Female Special alfonso needs: No Agree to transfusion: Yes Physical Exam Const: COMMON NORMALS: alert HENMT: COMMON NORMALS: normocephalic HEAD & SCALP: normocephalic Neck/C-Spine: COMMON NORMALS: full ROM Resp: COMMON NORMALS: normal respiratory effort and clear to auscultation bilaterally AUSCULTATION: clear to auscultation bilaterally Cardio: COMMON NORMALS: regular rate RATE: regular rate Back/Pelvis: THORACIC SPINE/UPPER BACK: No thoracic spinal tenderness and No paraspinal muscle tenderness LUMBAR SPINE/LOWER BACK: Yes lumbar spinal tenderness Lumbar spinal tenderness location: L4 and L5, Yes paraspinal muscle tenderness Lumbar paraspinal muscle tenderness: left and No paraspinal muscle spasm Neuro: SENSORIUM/ORIENTATION: Yes alert Skin: COMMON NORMALS: turgor normal GENERAL SKIN EXAM: turgor normal Course Vital Signs: Vital signs: Vital Signs Temperature 97.7 F 12/21/21 21:48 Pulse Rate 66 12/21/21 21:48 Respiratory Rate 16 12/21/21 21:48 Blood Pressure 168/100 12/21/21 21:48 Pulse Oximetry 100 12/21/21 21:48 Oxygen Delivery Me thod 12/21/21 21:48 MDM - Back Pain/Injury Medical Decision Making 56-year-old female comes in today for complaints of low back pain radiating down her left leg. On exam patient has some tenderness in her lumbar spine on palpation of the L4-L5 area. Patient also has left side muscle tightness and tenderness. Patient moves all extremities well. Distal pulses and sensation are intact. Patient has a negative leg lift test. Differential diagnosis includes intervertebral disc disease, facet arthropathy, lumbar radiculopathy. No signs of cauda equina syndrome was noted. Patient has an exacerbation of chronic back pain with some sciatica. Patient will be treated with anti- inflammatories and short course of hydrocodone. Patient was given an injection of steroid dexamethasone 10 mg in the ER along with 30 mg of ketorolac. Patient was given 1 tablet of hydrocodone. Patient reported understanding agreed to plan and need for follow-up. Discharge Plan Discharge Patient Disposition: Home Clinical Impression: Lumbar radiculopathy Condition: Stable Prescriptions: New hydrocodone-acetaminophen 5-325 mg tablet 1 tab PO Q6H PRN (Reason: pain (scale score 7-10)) Qty: 10 0RF diclofenac sodium 75 mg tablet,delayed release (DR/EC) 75 mg PO BID Qty: 20 0RF No Action albuterol sulfate [ProAir HFA] 90 mcg/actuation HFA aerosol inhaler 2 puff inhalation Q6H PRN (Reason: shortness of breath or wheezing) Qty: 8.5 0RF magnesium 250 mg tablet 250 mg PO DAILY multivitamin Tablet 1 tab PO DAILY Otc Hot Flash Medication 1 tab PO DAILY Vitamin C 1 tab PO DAILY activated charcoal 1 tab PO DAILY zinc 1 tab PO DAILY acetaminophen [Tylenol Extra Strength] 500 mg Tablet 500 mg PO Q6H PRN (Reason: Pain) cholecalciferol (vitamin D3) [Vitamin D3] 125 mcg (5,000 unit) Tablet 125 mcg PO DAILY Vitamin B-12 2 tab PO DAILY Discharge Orders: Discharge ED (Routine); Ordered 12/21/21 Ordered By: Chandler Carrasco Referrals: Lucille Black MD [Primary Care Provider] - Discharge Diet: Usual diet Discharge Activity: Increase activity as tolerated Patient Instructions: Lumbar Radiculopathy (ED) Activity Restrictions/Additional Instructions: Activity as tolerated. Drink plenty of water with medication. Use acetaminophen and diclofenac to control pain. Do not use ibuprofen or naproxen while taking diclofenac. Use hydrocodone for severe pain. Follow-up with primary care in 2 to 3 days for recheck. Return to ER for worsening symptoms such as loss of bowel or bladder control, high fever, or new concerns. Stand Alone Forms: Work/School Release Coding Level of Care Code ED Side Laster Staple for Melva Dominguez
[2021-12-21] MEDS: ketorolac 30 mg/mL INJ IM (23:17)
[2021-12-21] MEDS: dexamethasone 10 mg/mL INJ IM (23:17)
[2021-12-21] MEDS: HYDROcodone-acetaminophen 10-325 mg Tablet 1 TAB PO (23:17)
[2021-12-21 23:24] VITALS: PULSE 70; RESP 20; O2SAT 95
== END 2021-12-21 23:25 | disposition home or self-care (01) ==
PROVIDERS: Emergency Provider Nurse Practitioner Family; PCP Family Medicine
DX: M54.16 Radiculopathy, lumbar region (principal); Z87.891 Personal history of nicotine dependence
CPT/HCPCS: 96372; 99284; J1100; J1885

== ENCOUNTER 2023-05-18 08:54 | Emergency (ER) | payer SELFPAY ==
[2023-05-18 09:02] VITALS: BP 136/92; PULSE 65; RESP 17; TEMP 36.5; O2SAT 97
--- NOTE | 2023-05-18 09:06 | W.ED.HA ---
HPI - Headache General: Chief Complaint: Headache Stated Complaint: headache Time Seen by Provider: 05/18/23 08:54 History of Present Illness: A 58-year-old female comes in complaining of bilateral frontal headache that began 2 days ago she tried multiple [id number] remedies with no relief. She has had nausea but no vomiting with it difficult to sleep. No speech or swallowing difficulties no focal weaknesses. She has had headaches in the past similar to what she has had in the past but more intense than prior no recent falls or head injury. [facility] PFSH: Medical History B12 deficiency Surgical History History of appendectomy Status post cholecystectomy Social History Smoking and tobacco/nicotine status: former use of tobacco/nicotine (10 years) Quit status (tobacco/nicotine): has quit using Year quit tobacco: 1989 Former quit date comment: smoked 2PPD x 20 yrs Second hand smoke exposure: No Alcohol intake: never Substance/Drug Use: current Substance/Drug use frequency: few times a week Lives independently: Yes Household members: family Marital status: / Current occupational status: unemployed Current gender identity: Female Special alfonso needs: No Agree to transfusion: Yes Course Vital Signs: Vital signs: Vital Signs Temperature 97.7 F 05/18/23 09:02 Pulse Rate 54 L 05/18/23 10:42 Respiratory Rate 18 05/18/23 10:42 Blood Pressure 136/87 05/18/23 10:42 Pulse Oximetry 96 05/18/23 10:42 Oxygen Delivery Me thod Room Air 05/18/23 10:42 MDM - Headache Medical Decision Making Improved with medications given discharged home with Phenergan to use as needed for persistent headache follow-up with primary care doctor if worsens or recurs frequently. Medical Records I reviewed the patient's medical records. Lab Data I reviewed the patient's lab results. No radiology studies performed this visit Discharge Plan Discharge Patient Disposition: Home Clinical Impression: Tension headache Condition: Stable Prescriptions: New promethazine 25 mg tablet 25 mg PO Q6H PRN (Reason: nausea and vomiting/headache) Qty: 20 0RF No Action magnesium 250 mg tablet 250 mg PO DAILY multivitamin Tablet 1 tab PO DAILY Vitamin C 1 tab PO DAILY acetaminophen [Tylenol Extra Strength] 500 mg Tablet 500 mg PO Q6H PRN (Reason: Pain) cholecalciferol (vitamin D3) [Vitamin D3] 125 mcg (5,000 unit) Tablet 125 mcg PO DAILY Vitamin B-12 2 tab PO DAILY zinc gluconate 50 mg Tablet 50 mg PO DAILY Discharge Orders: Discharge ED (Routine); Ordered 05/18/23 Ordered By: Shin Dorado Referrals: Lucille Black MD [Primary Care Provider] - Patient Instructions: Opioid Safety, Pain Management Activity Restrictions/Additional Instructions: Thank you for choosing [facility] for your healthcare needs today. Please realize this is an emergency room and that we are providing you with a medical screening exam and this may not be complete and all inclusive of all the testing and or work up that you may need to determine your ailment or severity of your illness. It is very important that you follow up as instructed or that you return to the Emergency Department should you have concerns or if your condition changes or worsens in any way. Coding Level of Care Code ED [facility] Magistrate for Melva Dominguez
[2023-05-18] MEDS: ketorolac 30 mg/mL INJ IVP (09:35)
[2023-05-18] MEDS: metoclopramide 5 mg/mL SDV 2 mL 10 MG IVP (09:36)
[2023-05-18] MEDS: sodium chloride 0.9% 1,000 ML 999 ML IV (09:36)
[2023-05-18] MEDS: valproic acid inj 500 MG in sodium chloride 0.9% 50 ML 55 MG IV (09:38)
[2023-05-18] MEDS: diphenhydrAMINE 50 mg/mL SDV 1mL IVP (10:36)
[2023-05-18 10:42] VITALS: BP 136/87; PULSE 54; RESP 18; O2SAT 96
[2023-05-18 11:09] VITALS: BP 136/87; PULSE 68; O2SAT 96
== END 2023-05-18 11:08 | disposition home or self-care (01) ==
PROVIDERS: Emergency Provider Family Medicine; PCP Family Medicine
DX: G44.209 Tension-type headache, unspecified, not intractable (principal); Z87.891 Personal history of nicotine dependence
CPT/HCPCS: 96365; 96375; 99284; J1200; J1885; J2765; J3490; J7030